=== PATIENT | female | born 1955 | race Hispanic/Latino ===

== ENCOUNTER 2017-08-31 13:00 | Emergency (ER) | payer OTHER, SELFPAY ==
[2017-08-31 13:49] LABS: #Lymphocytes 1.2 thou/uL (1.20-3.40); #Neutrophils 10.2 thou/uL (1.40-6.50); %Basophils 0.1 % (0.0-1.0); %Eosinophils 0.1 % (0.0-10.0); %Lymphocytes 9.9 % (21.0-51.0); %Monocytes 8.1 % (0.0-10.0); Hematocrit 33.1 % (36.0-47.0); Mean Platelet Volume 6.6 fL (7.4-10.4); White Blood Cell (WBC) Count 12.4 thou/uL (4.8-10.8)
[2017-08-31 14:30] LABS: ALT (SGPT) 28 U/L (8-55); AST (SGOT) 38 U/L (5-34); Alkaline Phosphatase 158 U/L (40-150); Anion Gap 15 mmol/L (10-20); BUN (Urea Nitrogen) 12 mg/dL (9.8-20.1); Calc. Creatinine Clearance 0 mL/min (70-130); Calcium 9.2 mg/dL (7.8-10.44); Carbon Dioxide 24 mmol/L (23-31); Chloride 99 mmol/L (98-107); Estimated GFR-MDRD 50; Globulin 3.7 g/dL (2.4-3.5); Protein, Total 7.2 g/dL (6.0-8.3)
[2017-08-31 16:10] LABS: Bilirubin Small (Negative); Blood, Urine Negative (Negative); Glucose, Urine (Dipstick) Negative (Negative); Ketone, Urine Trace mg/dL (Negative); Nitrite Negative (Negative); Protein, Urine (Dipstick) 30 mg/dL (Neg-Trace)
[2017-08-31 16:11] LABS: Hyaline Casts/LPF 4-6 HYALINE CAST LPF (0-3 Hyaline); Squamous Epithelial 0-3 HPF (0-3)
[2017-08-31] MEDS ORDERED: Ondansetron HCl/PF 4 MG/2 ML Vial ONE (16:23)
[2017-08-31 16:26] LABS: Bacteria/HPF Rare-Few HPF (None Seen); RBC/HPF 0-3 HPF (0-3)
[2017-08-31] MEDS ORDERED: Albuterol Sulfate 2.5 mg/3 ml Neb ONE (16:38)
== END 2017-08-31 17:32 | disposition home or self-care (01) ==
LOC: ERS 13:00
DX: R19.7 Diarrhea, unspecified (principal); I10 Essential (primary) hypertension; Z79.899 Other long term (current) drug therapy
CPT/HCPCS: 36415; 80053; 81003; 81015; 85025; 94640; 96361; 96374; J2405; J7611

== ENCOUNTER 2017-09-07 14:28 | Inpatient (IN) | payer SELFPAY ==
[2017-09-07] MEDS ORDERED: methylPREDNISolone Sod Succ/PF 125 MG/2 ML VIAL ONE (14:53)
[2017-09-07] MEDS ORDERED: Acetaminophen 500 MG TAB ONE (14:53)
[2017-09-07 14:54] LABS: #Basophils 0.1 thou/uL (0.0-0.2); #Lymphocytes 0.4 thou/uL (1.20-3.40); #Monocytes 0.8 thou/uL (0.11-0.59); %Basophils 0.6 % (0.0-1.0); %Eosinophils 0.5 % (0.0-10.0); %Lymphocytes 4.5 % (21.0-51.0); %Monocytes 8.4 % (0.0-10.0); Mean Platelet Volume 6.9 fL (7.4-10.4); Red Blood Cell (RBC) Count 3.72 mill/uL (4.20-5.40); White Blood Cell (WBC) Count 9.3 thou/uL (4.8-10.8)
[2017-09-07] MEDS ORDERED: Water For Inject, Bacteriostat 30 ML ONE (14:54)
[2017-09-07] MEDS ORDERED: Azithromycin 500 MG VIAL ONE (14:56)
--- NOTE | 2017-09-07 15:11 | RAD ---
PORTABLE CHEST 1 VIEW: Date: 09/07/17 Time: 1438 hours HISTORY: Dyspnea. Cough. FINDINGS/IMPRESSION: Comparison made with exam dated 03/18/15. The heart size is normal. The previously seen left Port-A-Cath is no longer identified. Evidence of old granulomatous disease in the left lung is again seen. The pleural and parenchymal changes in the right lower hemithorax have worsened in the interim. A new right-sided pleural effusion may have de veloped in the interim. POS: OFF
[2017-09-07 15:16] LABS: ALT (SGPT) 55 U/L (8-55); AST (SGOT) 72 U/L (5-34); Alkaline Phosphatase 286 U/L (40-150); Anion Gap 18 mmol/L (10-20); BUN (Urea Nitrogen) 13 mg/dL (9.8-20.1); Bilirubin, Total 0.9 mg/dL (0.2-1.2); Calc. Creatinine Clearance 0 mL/min (70-130); Calcium 9.5 mg/dL (7.8-10.44); Carbon Dioxide 25 mmol/L (23-31); Chloride 95 mmol/L (98-107); Estimated GFR-MDRD 60; Globulin 4.2 g/dL (2.4-3.5); Protein, Total 7.6 g/dL (6.0-8.3)
[2017-09-07] MEDS ORDERED: Ondansetron HCl/PF 4 MG/2 ML Vial IVP PRN ×2 (16:49→19:05)
[2017-09-07] MEDS ORDERED: Sodium Chloride 0.9% 1,000 ML IV SCH ×2 (16:49→19:15)
[2017-09-07] MEDS ORDERED: Ondansetron ODT 4 MG TAB SL PRN (16:49)
[2017-09-07] MEDS ORDERED: cefTRIAXone\\ROCEPHIN 1 GM, Syringe 0.4 ML in Sterile Water 9.6 ML SLOW IVP SCH (18:00)
[2017-09-07] MEDS: Digoxin 0.5 MG/2 ML AMP SLOW IVP SCH ×2 (18:45→19:14)
[2017-09-07] MEDS ORDERED: Ondansetron ODT 4 MG TAB PO PRN (19:05)
[2017-09-07] MEDS ORDERED: Benzonatate 100 MG CAP PO PRN (19:05)
[2017-09-07] MEDS ORDERED: hydrALAZINE 20 MG/ML VIAL SLOW IVP PRN (19:05)
[2017-09-07] MEDS ORDERED: cloNIDine 0.1 MG TAB PO PRN (19:05)
[2017-09-07] MEDS ORDERED: Acetaminophen 500 MG TAB PO PRN (19:05)
[2017-09-07] MEDS: Diltiazem HCl 125 MG, Admixture Fee 1 EACH in Sodium Chloride 0.9% 100 ML SLOW IVP SCH (19:14)
[2017-09-07] MEDS ORDERED: Digoxin 0.5 MG/2 ML AMP SLOW IVP SCH (19:15)
[2017-09-07] MEDS: Sodium Chloride 0.9% 1,000 ML IV SCH ×2 (19:26→19:56)
[2017-09-07] MEDS: Famotidine 20 MG TAB PO SCH (20:27)
--- NOTE | 2017-09-08 00:32 | HP ---
DATE OF ADMISSION: 09/07/2017 PRIMARY CARE PROVIDER: Cami Srinivasan NP CHIEF COMPLAINT: Cough, congestion, and chills. HISTORY OF PRESENT ILLNESS: This is a 61-year-old, female, who presents to [facility] complaining of 1-2 day history of chills, fever, cough, congestion, and general malaise. The patient admits to recent exposure to suspected virus causing abdominal pain, nausea, v omiting, and diarrhea within the last several days. The patient admits to increasing shortness of b reath and some cough that has been nonproductive over the last 48 hours. The patient also admits to some sensation of chills without documented fever. Patient denied taking any specific new medicati ons or home remedies. Patient denies any strong history of pneumonia, but does state she had lung c ancer treated in the past with her last chemotherapy and treatment approximately 1-1/2 years prior t o this evaluation. Patient states she occasionally uses metered-dose inhaler for asthma, which she denies increased use of over the last week. Patient states her influenza vaccine is current; bernadette frazier, she has never had a pneumonia vaccination. In the emergency room, the patient underwent general evaluation including chest imaging showing parenchymal and pleural changes in the right lower hemith orax with questionable new right-sided pleural effusion. Patient was noted with mild hypoxemia, audra guru on oxygen supplementation as well as acetaminophen, Zithromax, Rocephin, IV Solu-Medrol, DuoNebs , and intravenous normal saline x1 liter. The patient was transferred to the Intermediate Care Unit after concern for a right lower lobe infiltrate and pneumonia. PAST MEDICAL HISTORY: 1. History of lung cancer, status post chemotherapy in 2014. 2. Hypertension. 3. History of dysphagia. 4. History of empyema of the right lower lung. 5. Chronic kidney disease, stage 2. PAST SURGICAL HISTORY: 1. Status post hysterectomy. 2. Status post Mediport placement with subsequent removal. CURRENT MEDICATIONS: 1. Ventolin nebulized solution 3 mL nebulized q.4 hours p.r.n. 2. Lisinopril 10 mg p.o. daily. ALLERGIES: To BACTRIM. FAMILY HISTORY: Mother of complications of coronary artery disease at age 42. No extended fam trung members with history of lung cancer. SOCIAL HISTORY: Patient is . Remote tobacco use, quitting in 2015. No current alcohol or illicit drug use. 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 REVIEW OF SYSTEMS: The following complete review of systems was negative, otherwise negative except as stated per HPI: Constitutional: Weight loss or gain, ability to conduct usual activities. Skin: Rash, itching. Eyes: Double vision, pain. ENT/Mouth: Nose bleeding, neck stiffness, pain, tenderness. Cardiovascular: Palpitations, dyspnea on exertion, orthopnea. Respiratory: Shortness of breath, wheezing, cough, hemoptysis, fever or night sweats. Gastrointestinal: Poor appetite, abdominal pain, heartburn, nausea, vomiting, constipation, or diar benjamin. Genitourinary: Urgency, frequency, dysuria, nocturia. Musculoskeletal: Pain, swelling. Neurologic/Psychiatric: Anxiety, depression. Allergy/Immunologic: Skin rash, bleeding tendency. PHYSICAL EXAMINATION: VITAL SIGNS: Currently, blood pressure 133/60, pulse ranging between 115-165, irregular, respirator y rate 20, temperature 98.7 degrees Fahrenheit, O2 saturation 99% on 2 liters per minute by nasal ca nnula. GENERAL APPEARANCE: This is a 61-year-old, female, alert and oriented x3, pleasant, in mi ld distress. HEENT: Pupils are equal, round, and reactive to light and accommodation. Extraocular muscles are i ntact. No scleral icterus, no conjunctival injection. Nares patent. OP is clear. Teeth in good r epair. NECK: Supple, no cervical adenopathy, no thyromegaly, no carotid bruits, no JVD appreciated. Cervi adams spine with full active and passive range of motion. CHEST: Diminished breath sounds in the right lung base with occasional coarse sounds. CARDIOVASCULAR: S1, S2 with tachycardia and irregular rate and rhythm. ABDOMEN: Rounded, soft, nontender, nondistended. Bowel sounds are positive in all four quadrants. There is no hepatosplenomegaly, no abdominal bruits, no rebound or guarding appreciated. EXTREMITIES: Warm and dry with good turgor. No clubbing, cyanosis or asymmetric edema appreciated. Pulses are palpable distally at the dorsalis pedis, posterior tibial, and popliteal arteries bilat erally. Capillary refill is less than 2 seconds. NEUROLOGIC: Cranial nerves II-XII are grossly intact. No focal or lateralizing signs appreciated. PERTINENT LABORATORY AND X-RAY FINDINGS: Sodium 134, potassium 3.7, chloride 95, CO2 of 25, BUN 13, creatinine 0.94, glucose 106, lactic acid level 1.0, calcium 9.5. AST 72, ALT of 55, alkaline phos phatase 286. Albumin 3.4. CBC showed a white blood cell count of 9.3, hemoglobin 10.5, hematocrit 33, and platelet count 398 with 86% neutrophilia. Portable chest x-ray dated 09/07/2017 showed prema valencia of left-sided Port-A-Cath. Old granulomatous changes in the left lung. Pleural and parenchymal changes in the right lower hemithorax worsening since previous exam. New right-sided pleural effus ion. EKG dated 09/07/2017 by my interpretation shows atrial fibrillation with rapid ventricular res ponse, heart rates in the 200s. Normal R-wave progression noted in the precordial leads. Normal ax is. ST-T wave changes from V3-V6 and inferior leads. ASSESSMENT AND PLAN: 1. Community-acquired right lower lobe pneumonia. The patient will be admitted to the intermediate care unit. Suspected gram positive cocci etiology. Continue Levaquin 750 mg IV q.24 hours. Blood cultures x2 pending. Continue bronchodilator therapy. 2. Question of new onset atrial fibrillation with rapid ventricular response. Cardizem 10 mg IV pu sh x1 dose followed by 5 mg per hour. Digoxin 0.5 mg IV push followed by 0.25 mg IV push. We will continue rate control measures. Consult Cardiology service in the a.m. Check TSH and magnesium lev els. Check 2D transthoracic echocardiogram in the a.m. 3. Hypertension. Resume home antihypertensive regimen with lisinopril 10 mg p.o. daily. Continue serial monitoring. 4. History of squamous cell carcinoma of the lung, status post chemotherapy. Stable currently. We will consider Medical Oncology evaluation. History of prior chemotherapy management. 5. Chronic normocytic anemia. No current evidence to suggest acute blood loss. Repeat CBC and mon itor hemoglobin trend. 6. Prophylaxis. Sequential compression devices while in bed. 7. Pepcid 20 mg p.o. b.i.d. 8. Code status is FULL. Surrogate medical decision maker is the patient's daughter.
[2017-09-08] MEDS: Sodium Chloride 0.9% 1,000 ML IV SCH ×3 (04:28→18:31)
[2017-09-08 05:02] LABS: ALT (SGPT) 41 U/L (8-55); AST (SGOT) 43 U/L (5-34); Alkaline Phosphatase 210 U/L (40-150); Anion Gap 13 mmol/L (10-20); BUN (Urea Nitrogen) 14 mg/dL (9.8-20.1); Bilirubin, Total 0.4 mg/dL (0.2-1.2); Calc. Creatinine Clearance 86 mL/min (70-130); Calcium 8.4 mg/dL (7.8-10.44); Carbon Dioxide 23 mmol/L (23-31); Chloride 107 mmol/L (98-107); Estimated GFR-MDRD 78; Globulin 3.3 g/dL (2.4-3.5)
[2017-09-08 05:10] LABS: Hematocrit 28.4 % (36.0-47.0); Mean Platelet Volume 6.6 fL (7.4-10.4); Neutrophil 93 % (42-75); Red Blood Cell (RBC) Count 3.22 mill/uL (4.20-5.40); White Blood Cell (WBC) Count 8.2 thou/uL (4.8-10.8)
[2017-09-08] MEDS: Famotidine 20 MG TAB PO SCH ×2 (08:32→20:28)
[2017-09-08] MEDS: Lisinopril 10 MG TAB PO SCH (08:32)
[2017-09-08] MEDS ORDERED: Furosemide 20 MG/2 ML VIAL SLOW IVP SCH (12:15)
[2017-09-08 13:32] LABS: Troponin I 0.012 ng/mL (< 0.028)
--- NOTE | 2017-09-08 14:47 | CON ---
DATE OF SERVICE: 09/08/2017 SERVICE: Pulmonary Medicine. REASON FOR CONSULTATION: Pleural effusion. HISTORY OF PRESENT ILLNESS: The patient is a 61-year-old white female with past medical history significant for empyema on the right as well as lung cancer. She was in her usual state of health until roughly 3 weeks ago. She started having increasing dyspnea, particularly with exertion. She noted orthopnea and paroxysmal nocturnal dyspnea. The nebulized medications that she is on for COPD just simply were not working. She denies any current fever. She was having some chills with a little clamminess from time to time, particularly over the past 2-3 days. That being said, she is coughing up white phlegm with no color. Otherwise, she notes dysphasia which is new onset. She had a modified barium swallow a couple of days ago which demonstrated some penetration with thin liquids, but no overt aspiration. She got choked up on eating some roast beef for earlier. PAST MEDICAL HISTORY: 1. History of lung cancer, status post chemotherapy in 2014. 2. History of empyema on the right, status post decortication. 3. Hypertension. 4. Chronic kidney disease, stage 2. 5. Oropharyngeal dysphagia. PAST SURGICAL HISTORY: 1. Hysterectomy. 2. MediPort placement with subsequent removal. ALLERGIES: SULFAMETHOXAZOLE. MEDICATIONS: List of her inpatient medications was reviewed. Multiple updates were made. FAMILY HISTORY: Noncontributory. SOCIAL HISTORY: Negative for alcohol, tobacco or illicit drug use currently. She quit smoking in 2014 and had a 22-cvbi-dbrr prior to that. She formerly worked in the [employer]. She has no exposure to chemicals, dust, asbestosis or tuberculosis. REVIEW OF SYSTEMS: General, head, ears, eyes, nose, throat, cardiovascular, respiratory, GI, , musculoskeletal, neurologic and skin is negative except as mentioned in the HPI. PHYSICAL EXAMINATION: VITAL SIGNS: Afebrile, pulse 79, blood pressure 134/54, respirations 20, saturation 100% on 4 liters nasal cannula. GENERAL: The patient is awake and alert, in no apparent distress. LUNGS: Decent air entry on the left. Decreased air entry on the right. There is a slightly prolonged expiratory phase, but otherwise, no wheezing or rhonchi appreciated. HEART: Normal rate. Irregular. Last night, she did have a tachyarrhythmia up into the 180s. GI: Soft, nontender, nondistended, bowel sounds positive. MUSCULOSKELETAL: No cyanosis or clubbing. There is trace pitting in the bilateral lower extremities. NEUROLOGIC: Grossly nonfocal. LABORATORIES: WBC 8.2, hemoglobin 9.1, platelets 360,000. Neutrophil count is 93%. Basic metabolic profile, liver function studies are essentially unremarkable. TSH is slightly low, but the T4 falls within the normal limits. Blood cultures x2 are unremarkable. IMAGING: Chest x-ray demonstrates right-sided pleural effusion, which is slightly bigger compared to 1 year ago. The most dependent portion of the effusion looks roughly stable. It is now tracking along the side wall. There is also fluid in the fissure and pulmonary vascular congestion. The carinal angle is fairly narrow. There is possible mid lung zone nodule present which could just represent fluid in the fissure as well. The left lung looks good. ASSESSMENT: 1. Acute hypoxic respiratory failure. 2. Atrial fibrillation with rapid ventricular response. 3. History of empyema on the right with chronic pleural disease over there. 4. Pleural effusion, slightly worse compared to her chronic stable effusion. 5. History of lung cancer. 6. Oropharyngeal dysphagia. PLAN: Place GI consultation for her oropharyngeal dysphagia which apparently is being worked up in the outpatient setting. In the meantime, we will give her a dose of Lasix. Thoracentesis will be performed so that we can identify characteristics of the fluid. I agree with the empiric antibiotics for the time being, but I am doubtful that a true infection is driving this admission. My suspicion is that the patient has chronic lung changes on that side which has worsened by recent paroxysmal atrial fibrillation. Cardiology consultation will be placed for her new onset atrial fibrillation. Lastly, magnesium and phosphorus will be checked a well as a troponin and BNP. MTDD
[2017-09-08 15:29] LABS: BF Reference Range Comment Note:
[2017-09-08 16:32] LABS: BF Color Yellow
[2017-09-08] MEDS: Diltiazem HCl 125 MG, Admixture Fee 1 EACH in Sodium Chloride 0.9% 100 ML SLOW IVP SCH (16:42)
[2017-09-08 16:55] LABS: Number Cells Counted-Fluids 100
--- NOTE | 2017-09-08 18:19 | PDOC.PN ---
- Subjective Encounter Start Date: 09/08/17 Encounter Start Time: 18:10 Subjective: f/u for A-fib RVR, PNA and hypoxemia. States feeling better after A- fib -: converted to SR. Remains on Cardizem gtt. S/P thoracentesis for R pleural -: effusion. No fever or chills. - Objective Resuscitation Status: Resuscitation Status FULL:Full Resuscitation MAR Reviewed: Yes Vital Signs & Weight: Vital Signs (12 hours) Temp Pulse Resp BP BP Pulse Ox 09/08/17 15:07 97.8 F 80 20 139/59 L 100 09/08/17 11:13 97.7 F 79 20 134/54 L 100 09/08/17 07:57 97.5 F L 77 20 99 09/08/17 07:05 97.5 F L 77 20 131/67 100 Weight Admit Weight 156 lb 4.8 oz Weight 158 lb 12.8 oz I&O: 09/07/17 09/08/17 09/09/17 06:59 06:59 06:59 Intake Total 2065 Output Total 1200 300 Balance 865 -300 Result Diagrams: 09/08/17 04:09 09/08/17 04:09 Additional Labs: Microbiology 09/08/17 14:30 Pleural fluid Body Fluid Culture - Preliminary 09/07/17 14:54 Venous blood - Left Hand Blood Culture - Preliminary Specimen has been received and culture in progress. No Growth to date. 09/07/17 14:36 Venous blood - Left Arm Blood Culture - Preliminary Specimen has been received and culture in progress. No Growth to date. Laboratory Tests 09/07/17 09/07/17 09/08/17 14:36 14:36 04:09 Hgb 10.5 L Neutrophils % 86.0 H Neutrophils % (Manual) AST 72 H 43 H ALT 55 41 Alkaline Phosphatase 286 H 210 H B-Natriuretic Peptide Free T4 TSH 3rd Generation 09/08/17 09/08/17 09/08/17 04:09 04:09 13:02 Hgb Neutrophils % Neutrophils % (Manual) 93 H AST ALT Alkaline Phosphatase B-Natriuretic Peptide 614.2 H Free T4 1.24 TSH 3rd Generation 0.1029 L Radiology Reviewed by me: Yes (2D Echo - EF 55-60%) EKG Reviewed by me: Yes (Tele - SR in 80's, frequent PVC's) Phys Exam - Physical Examination Constitutional: NAD HEENT: PERRLA, oral pharynx no lesions Neck: no JVD, supple diminished in bases R>L Cardiovascular: RRR Gastrointestinal: soft, non-tender, no distention, positive bowel sounds Musculoskeletal: no edema, pulses present Neurological: normal sensation, moves all 4 limbs Psychiatric: A&O x 3 Skin: normal turgor, cap refill <2 seconds Dx/Plan (1) Acute respiratory failure with hypoxia Code(s): J96.01 - ACUTE RESPIRATORY FAILURE WITH HYPOXIA Status: Acute Comment: Multifactorial given A-fib RVR, suspected pneumonia and effusion, continue O2 supplementation and provide supportive care (2) Pneumonia Code(s): J18.9 - PNEUMONIA, UNSPECIFIED ORGANISM Status: Acute Qualifiers: Laterality: right Lung location: lower lobe of lung Comment: Suspected with gm + cocci and associated effusion, Continue Levaquin 750mg IV daily (3) Parapneumonic effusion Code(s): J18.9 - PNEUMONIA, UNSPECIFIED ORGANISM; J91.8 - PLEURAL EFFUSION IN OTHER CONDITIONS CLASSIFIED ELSEWHERE Status: Acute Comment: s/p thoracentesis, await final cx results, appreciate Pulmonology assistance (4) Atrial fibrillation with RVR Code(s): I48.91 - UNSPECIFIED ATRIAL FIBRILLATION Status: Acute Comment: New -onset A-fib RVR now SR, continue Cardizem gtt, rate control measures, appreciate Cardiology assistance (5) HTN (hypertension) Code(s): I10 - ESSENTIAL (PRIMARY) HYPERTENSION Status: Chronic Qualifiers: Hypertension type: essential hypertension Qualified Code(s): I10 - Essential (primary) hypertension Comment: Resume home BP regimen and monitor clinically (6) Carcinoma of lung Code(s): C34.90 - MALIGNANT NEOPLASM OF UNSP PART OF UNSP BRONCHUS OR LUNG Status: Acute Qualifiers: Laterality: right Qualified Code(s): C34.91 - Malignant neoplasm of unspecified part of right bronchus or lung Comment: s/p chemothx, await thoracentesis fluid assessment - Plan continue antibiotics, PT/OT, child welfare social worker, respiratory therapy, out of bed/ ambulate, DVT proph w/SCDs Stable overall -: Decrease IVF 75ml/h -: Continue Levaquin 750mg IV daily -: Continue Cardizem gtt -: AM lab: CMP, CBC * .
--- NOTE | 2017-09-08 18:49 | CON ---
DATE OF ADMISSION: 09/07/2017 DATE OF CONSULTATION: 09/08/2017 INDICATION FOR CONSULTATION: A 61-year-old female with new onset atrial fibrillation. HISTORY OF PRESENT ILLNESS: This is a very unfortunate 61-year-old female who was diagnosed with laureano ng cancer in 2014. She underwent chemo and radiation therapy. She has not had surgical resection o f the cancer. She has smoked in the past, but stopped at the time of her lung cancer, otherwise she smoked for about 40 years up to a pack a day. She has had no previous cardiac history that we are aware of. She does have a history of hypertension. She presented to the emergency room after she h ad increasing shortness of breath and noticed her with a rapid heart rate. She was seen in the [facility] physician's office and then was found to have low O2 oxygen saturation and was sent to the emergency room. Since being in the emergency room, she has been oxygen, her O2 saturations have imp roved. She has O2 saturation of 100% on 2 liters of oxygen. She has been noticing recently when e sleeps at night that she may have a rapid heart rate. She wakes up, she is short of breath. She has had a couple episodes of chest pressure associated with a rapid heart rate. She has had no othe r associated symptoms and associated with this except for the shortness of breath. She has had no p revious cardiac history that we are aware of. She has had no previous stress test also that I can d etermine. Her EKG did show a sinus rhythm when she presented to the emergency room, but later where she was noted to be in atrial fibrillation with rapid ventricular response, heart rate of almost 20 0 beats a minute. There are also EKG changes compatible with anterior lateral ischemic changes whic h may be due to demand ischemia. She subsequently was started on digoxin and diltiazem as then conv erted back to a normal sinus rhythm. She denied any previous history of coronary artery disease mary t she is aware of, but does have obvious risk factors. At this time, she remains relatively comfort able. She did have a right pleural effusion, which underwent thoracentesis this a.m. by the pulmono logist and this is still pending the results. She also had an echocardiogram, which showed a normal left ventricular systolic function, ejection fraction of 55% to 60% with mild pulmonary, tricuspid and mitral valve regurgitation, mild aortic valve sclerosis was noted. There was trace aortic valve regurgitation as well as a right pleural effusion. PAST MEDICAL HISTORY: Significant for the lung cancer and history of hypertension as well as some h istory of asthma in the past. ALLERGIES: SULFAMETHOXAZOLE and TRIMETHOPRIM. MEDICATIONS: Prior to admission included lisinopril 10 mg a day and Ventolin nebulizer treatments. Since being in the hospital, she has been switched over or she has been started on other medication s which include the Ventolin inhaler. She is on Tylenol. She is on p.r.n. medications also she was given IV diltiazem and remains on a drip as well as digoxin. She is on Pepcid, furosemide was give n. She has also been placed on heparin, I think this is a heparin flush, this has been discontinued . She has been placed on Levaquin, lisinopril 10 mg a day. REVIEW OF SYSTEMS: Mainly she complained of the rapid heart rate and her shortness of breath. Othe rwise, she has no significant complaints on review of systems except for some recent diarrhea. This also noted last couple weeks with some nausea and vomiting as well as the diarrhea and also was com plaining of some reflux. Otherwise, 12-point review of systems was relatively unremarkable. She de nies any swelling or any other symptoms. PHYSICAL EXAMINATION: GENERAL: Reveals a well-developed, well-nourished female. At this time, she is very comfortable. VITAL SIGNS: Blood pressure 134/54, heart rate is approximately 80 and regular, respiratory rate is 20. She is afebrile. HEENT: Shows head to be normocephalic and atraumatic. Carotid pulses are present without any bruit s. No obvious JVD; however, the patient was sitting upright and then she was feeling well and comfo rtable. CHEST: Has decreased breath sounds on the right side in the bases and also changes as well as a sma ll bandage has been placed over the previous or earlier thoracentesis on the right lower chest area. There were no wheezes noted. CARDIOVASCULAR: At this time reveals a regular rate and rhythm with normal S1, S2. I cannot hear a n S3 nor an S4. There were no significant murmurs, heaves, thrills, bruits or rubs. ABDOMEN: Soft and nontender with positive bowel sounds. EXTREMITIES: Showed no clubbing, cyanosis or edema. Pedal pulses are present. NEUROLOGIC: The patient appears to be fully intact. SKIN: Warm and dry. EKG as noted above, has now returned to a sinus rhythm but did have EKG changes when she had rapid v entricular response associated with atrial fibrillation with what appeared to be anterolateral ische jeyson changes ST segment depression. Her chest x-ray shows a right pleural effusion with possible und erlying nodule or mass. This will be dealt with by the electric organ assembler and checker. I did not see anything on th e left side. LABORATORY DATA: Shows no evidence of elevation of troponin I that would indicate myocardial infarc tion. She does have evidence of anemia with a hemoglobin of 9.1. WBC was 8.2. Her renal function is normal with a creatinine of 0.75, BUN was 14, potassium was 3.9, did notice that she does have el evation in AST and the alkaline phosphatase, AST was 42, alkaline phosphatase is 210. She also has slight elevation of BNP 614, which may be associated with her rapid ventricular heart rate with the atrial fibrillation and pulmonary component also. She has a TSH level of 0.1029 compatible with hyp othyroidism. IMPRESSION: 1. New onset atrial fibrillation and rapid ventricular response. This may be ongoing for the last months or so or 6 weeks. She has noticed an irregular fast heart rates at night, this may be due to her underlying pulmonary problems with hypoxemia, may also be due to the or hypothyroidism. She al so may be due to coronary artery disease. She certainly did have some EKG changes, I would not expe ct this to be the case at rest and most likely associated with hypoxemia and at some point time, she will need to undergo stress test rule out evidence for underlying coronary artery disease. This pa tient with her history of tobacco abuse, which puts her at high risk for underlying coronary artery disease. As far as her atrial fibrillation is concerned, will need to continue the diltiazem and di goxin at this time. She may stabilize these medications and may not recur as long as she does not b ecome hypoxic and it would be interesting to watch her here in the hospital and see whether or not s he does develop atrial fibrillation without any hypoxemia. 2. Hypothyroidism, this will also need to be addressed since this is one of the issues of her could be a possible issue with her atrial fibrillation. This will be dealt with also by the primary care service for treatment of her hypothyroidism. 3. History of underlying chronic obstructive pulmonary disease or asthma and is somewhat difficult to get this patient on beta-blockers to control with heart rate and I would agree with the calcium b lockers and digoxin at this time. 4. History of anemia, uncertain if this is due to also her chronic illness associated with her lung cancer, whether she has other issues, which may indicate the bleeding. We will need to undergo adam luation in the stools as the patient eventually may need to undergo oral anticoagulation. We will n eed to determine if she is actually having any other GI blood loss as the cause of her anemia. We w ill be more than happy to continue to follow the patient with you. At this time, she is stable. Sh marleny is in sinus rhythm. I would continue the diltiazem can switch her from IV to p.o. medications and see how she does.
[2017-09-08] MEDS: Albuterol Sulfate 2.5 mg/3 ml Neb NEB PRN (20:37)
--- NOTE | 2017-09-09 | OP ---
DATE OF SERVICE: 09/08/2017 SERVICE: Pulmonary Medicine. PROCEDURE: Right-sided pleural drainage with catheter insertion under ultrasound guidance. CONSENT: The risks and benefits of this procedure were explained to the patient. All questions wer e answered and alternative options explained. STAFF PHYSICIAN: John Lange M.D. MEDICATIONS: Lidocaine 1% without epinephrine, total quantity 8 mL. PREOPERATIVE DIAGNOSES: 1. Pleural effusion. 2. History of lung cancer POSTPROCEDURE DIAGNOSES: 1. Pleural effusion. 2. History of lung cancer. DESCRIPTION OF PROCEDURE: A timeout was performed by the procedure team and the patient. The patie nt was positively identified using name and date of . The procedure site was marked. Vital si gns monitoring was accomplished by noninvasive hemodynamic monitoring, pulse oximetry, and telemetry . In the seated position, the right posterior hemithorax was examined using ultrasound probe. The diaphragm and pleural fluid was easily identified. The skin was prepped and draped in sterile fashi on and anesthetized with 1% lidocaine without epinephrine. A finder needle was inserted into the pl eural space with return of minimally opaque yellow fluid. A pleural drainage catheter was inserted in the same location. A total quantity of 800 mL of pleural fluid was withdrawn by syringe pump robert [employer]. A sample was sent for analysis. Evacuation was terminated because the fluid stopped coming . At the end of the procedure, estimated pleural pressure, measured by manometry, was -14 cm of ple ural fluid. The entire catheter was withdrawn on exhalation and a sterile dressing was applied. Th e patient had stable vital signs throughout the entire procedure. ESTIMATED BLOOD LOSS: Two mL COMPLICATIONS: None.
[2017-09-09] MEDS: Albuterol Sulfate 2.5 mg/3 ml Neb NEB PRN ×3 (01:16→19:11)
[2017-09-09 05:16] LABS: Band 3 % (5-11); Hematocrit 28.2 % (36.0-47.0); Mean Platelet Volume 6.7 fL (7.4-10.4); Neutrophil 92 % (42-75); Red Blood Cell (RBC) Count 3.11 mill/uL (4.20-5.40); White Blood Cell (WBC) Count 16.7 thou/uL (4.8-10.8)
[2017-09-09 05:17] LABS: ALT (SGPT) 63 U/L (8-55); AST (SGOT) 68 U/L (5-34); Alkaline Phosphatase 162 U/L (40-150); Anion Gap 12 mmol/L (10-20); BUN (Urea Nitrogen) 20 mg/dL (9.8-20.1); Bilirubin, Total 0.2 mg/dL (0.2-1.2); Calc. Creatinine Clearance 94 mL/min (70-130); Calcium 8.4 mg/dL (7.8-10.44); Carbon Dioxide 23 mmol/L (23-31); Chloride 108 mmol/L (98-107); Estimated GFR-MDRD 85; Globulin 2.9 g/dL (2.4-3.5); Protein, Total 5.5 g/dL (6.0-8.3)
[2017-09-09] MEDS: Lisinopril 10 MG TAB PO SCH (08:19)
[2017-09-09] MEDS: Famotidine 20 MG TAB PO SCH (08:20)
[2017-09-09] MEDS: Furosemide 20 MG/2 ML VIAL SLOW IVP SCH (08:20)
[2017-09-09] MEDS: Sodium Chloride 0.9% 1,000 ML IV SCH (08:24)
[2017-09-09 09:42] LABS: Iron 53 ug/dL (50-170)
--- NOTE | 2017-09-09 09:58 | PDOC.PN ---
- Subjective Encounter Start Date: 09/09/17 Encounter Start Time: 10:00 Subjective: Patient feels much better since thoracentesis, and got some sleep last -: night. No complaints this AM. - Objective Resuscitation Status: Resuscitation Status FULL:Full Resuscitation MAR Reviewed: Yes Vital Signs & Weight: Vital Signs (12 hours) Temp Pulse Resp BP BP Pulse Ox 09/09/17 07:00 97.9 F 73 18 124/57 L 100 09/09/17 04:00 97.7 F 77 20 126/60 100 09/09/17 01:16 99 09/08/17 23:50 97.8 F 80 20 125/56 L 100 Weight Admit Weight 156 lb 4.8 oz Weight 158 lb 8 oz I&O: 09/08/17 09/09/17 09/10/17 06:59 06:59 06:59 Intake Total 2065 3740 Output Total 1200 2225 Balance 865 1515 Result Diagrams: 09/09/17 04:11 09/09/17 04:11 Phys Exam - Physical Examination Constitutional: NAD HEENT: moist MMs Respiratory: no wheezing, no rales, no rhonchi, clear to auscultation bilateral Cardiovascular: RRR, no significant murmur Gastrointestinal: soft, positive bowel sounds Neurological: non-focal, moves all 4 limbs Psychiatric: normal affect, A&O x 3 Dx/Plan (1) Acute respiratory failure with hypoxia Code(s): J96.01 - ACUTE RESPIRATORY FAILURE WITH HYPOXIA Status: Acute Comment: Multifactorial given A-fib RVR, suspected pneumonia and effusion, continue O2 supplementation and provide supportive care (2) Parapneumonic effusion Code(s): J18.9 - PNEUMONIA, UNSPECIFIED ORGANISM; J91.8 - PLEURAL EFFUSION IN OTHER CONDITIONS CLASSIFIED ELSEWHERE Status: Acute Comment: s/p thoracentesis, await final cx results, appreciate Pulmonology assistance (3) Pneumonia Code(s): J18.9 - PNEUMONIA, UNSPECIFIED ORGANISM Status: Acute Qualifiers: Laterality: right Lung location: lower lobe of lung Comment: Suspected with gm + cocci and associated effusion, Continue Levaquin 750mg IV daily (4) Atrial fibrillation with RVR Code(s): I48.91 - UNSPECIFIED ATRIAL FIBRILLATION Status: Acute Comment: New -onset A-fib RVR now SR, continue Cardizem gtt, rate control measures, appreciate Cardiology assistance (5) HTN (hypertension) Code(s): I10 - ESSENTIAL (PRIMARY) HYPERTENSION Status: Chronic Qualifiers: Hypertension type: essential hypertension Qualified Code(s): I10 - Essential (primary) hypertension Comment: Resume home BP regimen and monitor clinically (6) Lung cancer Code(s): C34.90 - MALIGNANT NEOPLASM OF UNSP PART OF UNSP BRONCHUS OR LUNG Status: Chronic Qualifiers: Laterality: right Lung location: lower lobe of lung Qualified Code(s): C34.31 - Malignant neoplasm of lower lobe, right bronchus or lung Comment: s/p chemotherapy - Plan cont current plan of care, continue antibiotics WBC jumped arguing for possibility of infectious eitiology of effusion. -: Awaiting fluid analysis and culture. * . - Discharge Day Encounter end time: 10:30
--- NOTE | 2017-09-09 10:42 | PDOC.CTH ---
<Katherine Hong - Last Filed: 09/09/17 10:40> Cardiology Progress Note - Subjective The pt was seen and examined. No overnight events. No cardiac complaints. She is breathing well with RA - Objective Vital Signs Temp Pulse Resp BP BP Pulse Ox 09/09/17 07:00 97.9 F 73 18 124/57 L 100 09/09/17 04:00 97.7 F 77 20 126/60 100 09/09/17 01:16 99 09/08/17 23:50 97.8 F 80 20 125/56 L 100 Admit Weight 156 lb 4.8 oz Weight 158 lb 8 oz 09/08/17 09/09/17 09/10/17 06:59 06:59 06:59 Intake Total 2065 3740 Output Total 1200 2225 Balance 865 1515 - Physical Examination General/Neuro: alert & oriented x3 Neck: no JVD present Lungs: other: (diminished at bases) Heart: RRR Abdomen: soft Extremities: other: (No edema) - Telemetry Telemetry Rhythm: SR 80 - Labs Result Diagrams: 09/09/17 04:11 09/09/17 04:11 Troponin/CKMB Troponin I 0.012 ng/mL (< 0.028) 09/08/17 13:02 - Assessment/Plan 1. Afib with RVR - remain SR with Diltiazem 5mg/h; will change to 120mg daily; cont. monitor on tele; Hyperthyroidism may cause Afib; 2. Acute respiratory failure - possible 2ndary to Plural effusion; her resp is improved; no distress with RA; managed by data integration analyst 3. Plural Effusion - the pt's condition is stable after Rt Plural effusion evacuation on 09/08/17 3. HTN - stable with current medication 4. Hyperthyroidism - TSH 0.1029 and Free T4 1.24; managed by PCP 5. hx of smoking and Lung Ca in 2015 with Chemo and radiation MAR reviewed Review of Systems - Review of Systems Constitutional: reports: no symptoms reported EENTM: reports: no symptoms reported Respiratory: reports: no symptoms reported Cardiac (ROS): reports: no symptoms reported ABD/GI: reports: no symptoms reported : reports: no symptoms reported Musculoskeletal: reports: no symptoms reported Skin: reports: no symptoms reported <Janine Baker - Last Filed: 09/09/17 16:02> Cardiology Progress Note - Objective Vital Signs Temp Pulse Resp BP BP Pulse Ox 09/09/17 15:00 97.9 F 90 18 128/59 L 99 09/09/17 11:35 89 132/58 L 98 09/09/17 11:00 97.6 F 82 18 132/58 L 97 09/09/17 08:20 97.9 F 73 18 100 09/09/17 07:00 97.9 F 73 18 124/57 L 100 Admit Weight 156 lb 4.8 oz Weight 158 lb 8 oz 09/08/17 09/09/17 09/10/17 06:59 06:59 06:59 Intake Total 2065 3740 525 Output Total 1200 2225 900 Balance 865 1515 -375 - Labs Result Diagrams: 09/09/17 04:11 09/09/17 04:11 Troponin/CKMB Troponin I 0.012 ng/mL (< 0.028) 09/08/17 13:02 - Assessment/Plan Pt. seen and eval. by me. I agree with the A/P by the FILM TECHNICIAN. She is maintaining NSR on diltiazem.
[2017-09-09] MEDS ORDERED: Sodium Chloride 0.9% 1,000 ML IV SCH (13:47)
--- NOTE | 2017-09-09 14:03 | PRG ---
DATE OF SERVICE: 09/09/2017 SERVICE: Pulmonary Medicine. INTERVAL HISTORY: The patient is doing fantastic from her respiratory standpoint. She has been wea luis off of her oxygen altogether and she is maintaining her saturations. She feels fantastic after she got some Lasix. Otherwise, there has been no interval change to her condition. GI saw her and is planning on probably doing an EGD at some point during this hospital stay. She does have that pu lmonary nodule on a chest x-ray. I feel it represents fluid in the fissure and not a true pulmonary nodule. That being said, we will go ahead and set her up for a CT of the chest with contrast. No overnight events. PHYSICAL EXAMINATION: VITAL SIGNS: Afebrile, pulse 82, blood pressure 132/58, respirations 18, saturation 97% on room air . GENERAL: Patient is awake, alert, in no apparent distress. LUNGS: Decent air entry on the left. There is decreased air entry on the right. This is improved compared to yesterday. No prolonged expiratory phase or wheezing is appreciated. Dependent crackle s are still evident. HEART: Normal rate, regular. ABDOMEN: Soft, nontender, nondistended. Bowel sounds are positive. MUSCULOSKELETAL: No cyanosis or clubbing. There is no pitting in the bilateral lower extremities. The left upper extremity has pitting in it. GENITOURINARY: No [place]. NEUROLOGIC: Grossly nonfocal. LABORATORY DATA: WBC 16.7, hemoglobin 8.6, platelets 163,000. Basic metabolic profile is essential ly unremarkable. AST and ALT are up trending upward slowly. BNP was 614. Troponin was normal. Fo late is normal. Ferritin and iron levels are all unremarkable. The thoracentesis fluid is consiste nt with a transudate. Blood cultures x2 and body fluid cultures negative to date. ASSESSMENT: 1. Acute hypoxic respiratory failure. 2. Atrial fibrillation with rapid ventricular response, currently in normal sinus. 3. 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 4. Pleural effusion, transudate. 5. History of lung cancer, status post chemoradiation therapy. 6. Oropharyngeal dysphagia. PLAN: We will get an LDH to verify that she meets 0/3 Light's criteria. Acyclovir will be initiate d for the fever blister. I am going to interrupt her IV fluids as her presentation was for volume o verload. I am doubtful that she has a true community-acquired pneumonia. That being said, continui ng antibiotics for a total duration of 5 days is certainly reasonable.
[2017-09-09] MEDS: Acyclovir 400 mg Tablet PO SCH ×3 (15:51→23:41)
[2017-09-09] MEDS ORDERED: ISOVUE-370 76%-LOCM 1 ML ONE (16:19)
--- NOTE | 2017-09-09 18:48 | CT ---
CHEST CT WITH CONTRAST: Comparison: 07-03-16, 02-17-15 History: Lung cancer. Technique: Post contrast chest CT is performed in the axial plane. Reformatted images are submitted for interpretation. FINDINGS: There is abnormal hypoattenuation involving the subcarinal region which obliterates the right main s tem and right lower lobe airway. Heart size is within normal limits. No significant paracardial flui d. Upper abdominal aorta has an overall normal caliber. No periaortic fat stranding. Liver, spleen, pancreas and adrenal glands have appropriate enhancement. Visualized kidneys have appropriate enhancement. There is right renal atrophy. Visualized portal vei n is patent. There is a small right sided pleural effusion. There is necrosis and consolidation involving the rig ht lower lobe and part of the middle lobe. There is associated volume loss in the right hemithorax. There is an irregular marginated lesion in the superior aspect of the right lower lobe measuring 1.2 7 cm. The right upper lobe appears to be surgically resected. There is stable compensatory hyperinfl ation of the left lung. No suspicious masses or consolidation. No left sided pneumothorax or pleural effusions. IMPRESSION: 1. Worsening opacification of the right hemithorax when compared to the previous exam. There is also worsening soft tissue density in the right subcarinal region extending into the right infrahilar re gion. Progression of tumor is favored. Associated post obstructive atelectasis or pneumonia is also favored. 2. Small right sided pleural effusion. POS: [facility]
--- NOTE | 2017-09-09 22:14 | CON ---
DATE OF CONSULTATION: 09/09/2017 REASON FOR CONSULTATION: Dysphagia and 30-pound weight loss. HISTORY OF PRESENT ILLNESS: Ms. Kirkpatrick is a 61-year-old female who came to the hospital [facility] of congestion, fever, cough, and general malaise. She had been around with some individuals with some viral illnesses recently, had abdominal pain, nausea, vomiting, diarrhea for several days and then resolved. In the emergency room, she was found to have a right pleural effusion and atrial fib rillation with rapid ventricular response. Chest x-ray showed no overt infiltrates. She had a thor acentesis yesterday, which apparently showed this to be transudative and not exudative. She had bee n seen by Cardiology and her cardiac rate is now controlled. The patient has had a history of dysph agia, she states, for about 2-3 months now. She drinks liquids fine, but solids such as hamburgers, bread, and meat tend to hang up in the mid chest region and then she will have to regurgitate them. If she tries to force them down with water, she will throw all that back up. She had no hematemes is, melena, or hematochezia. Apparently, her primary physician sent her for a modified barium swall ow last week, which showed mild oropharyngeal dysphagia. This, however, does not evaluate the esoph roseanne and the speech pathologist noted that her report indicated that she was concerned there may be some esophageal dysphagia present. In any event, the patient is feeling better today. She has no f ever here. Her breathing feels better. PAST MEDICAL HISTORY: Lung cancer with radiation and chemotherapy in 2014. She states that the can cer was in the mid chest region. She was radiated from two aspects laterally trying to avoid any es ophageal damage. She denies any dysphagia back then, hypertension, history of empyema in the right lower lung in the past, chronic kidney disease stage 2, new onset atrial fibrillation. PAST SURGICAL HISTORY: Hysterectomy, MediPort placement and removal in the past. She denies any pr evious upper or lower endoscopies. MEDICATIONS: Presently include lisinopril and Ventolin. ALLERGIES: BACTRIM. FAMILY HISTORY: Coronary artery disease in mother at age 42. No family members with lung cancer. SOCIAL HISTORY: The patient is . Her daughter is here with her as her son and daughter are my patients in the office. REVIEW OF SYSTEMS: Negative for constipation or abdominal pain. Positive for the dysphagia as note d above; it has been progressive for 6-12 weeks now. PRESENT MEDICATIONS HERE IN THE HOSPITAL: Ventolin, Tessalon, Catapres, Cardizem, Lasix, Apresoline , levothyroxine, Zestril, Zofran, Protonix. PHYSICAL EXAMINATION: VITAL SIGNS: Pulse 89, O2 saturation 98%, blood pressure 133/58, she has been afebrile since admiss ion, temperature of 98. LUNGS: Clear with decreased breath sounds in the right base. HEART: Irregular rate and rhythm. ABDOMEN: Soft, nontender. NECK: Supple without any adenopathy. EXTREMITIES: Reveal no clubbing, cyanosis, or edema. LABORATORY STUDIES: Comp met profile is normal except for AST and ALT of 68 and 63 with alkaline ph osphatase of 162, alkaline phosphatase has came down from 282 when she was admitted, bilirubin 0.2. B12 was 441. Folate is 11. Iron is 53, TIBC is 175, ferritin is 558. Thoracentesis fluid hazy, w colten count 1950, white count 2450 and 54 segs. Pleural pH 7.5. LDH 105, glucose 135, protein 2.7. Chest x-ray reviewed, shows right pleural effusion. This was before her thoracentesis. Other Radi ology studies included a CAT scan of the chest 06/2016 shows right lower lobe opacification. ASSESSMENT: 1. Esophageal dysphagia for solids. This indicates likely stricture. One wonders this is related to her previous radiation treatment, possibility of a primary esophageal malignancy is considered as well as he is a previous smoker and had squamous cell cancer of the lung, squamous cell cancer of t he esophagus would be a concern as well. She has lost 30 pounds which is very concerning. Modified barium swallow did not really show an etiology to her dysphagia which is not surprising. 2. Admission with atrial fibrillation with rapid ventricular response, now rate controlled. 3. Pleural effusion on the right. Pulmonology thinks this was reactive and transudate related to h er atrial fibrillation and rapid ventricular response. He does not see any signs of pneumonia. 4. Anemia with hemoglobin of 8.6. Her white count was 12.1 on 06/2016. She has normocytic normoch romic indices. Hemoccults are pending. She has never had a colonoscopy, but she has significant up per GI symptoms. PLAN: 1. Start PPI. 2. Plan for EGD tomorrow if she does well with her breathing.
[2017-09-10 04:35] LABS: #Eosinphils 0.1 thou/uL (0.0-0.7); #Lymphocytes 0.7 thou/uL (1.20-3.40); #Monocytes 0.7 thou/uL (0.11-0.59); #Neutrophils 7.7 thou/uL (1.40-6.50); %Basophils 0.2 % (0.0-1.0); %Eosinophils 1.4 % (0.0-10.0); %Lymphocytes 7.1 % (21.0-51.0); %Monocytes 7.7 % (0.0-10.0); Hematocrit 28.6 % (36.0-47.0); Mean Platelet Volume 6.6 fL (7.4-10.4); Red Blood Cell (RBC) Count 3.22 mill/uL (4.20-5.40); White Blood Cell (WBC) Count 9.2 thou/uL (4.8-10.8)
[2017-09-10] MEDS ORDERED: Propofol 500 MG/50 ML VIAL ONE (07:17)
[2017-09-10] MEDS ORDERED: Diprivan 40 ML ONE (09:07)
[2017-09-10] MEDS ORDERED: Propofol 200 MG/20 ML VIAL ONE (09:30)
[2017-09-10] MEDS ORDERED: Lidocaine 1% PF 5 ML VIAL ONE (09:30)
[2017-09-10] MEDS ORDERED: Triamcinolone 40 MG/ML VIAL ONE (09:44)
--- NOTE | 2017-09-10 09:45 | PDOC.PN ---
- Subjective Encounter Start Date: 09/10/17 Encounter Start Time: 11:35 Subjective: Patient with EGD this AM, dilated out some scar tissue per -: patient. No other complaints. - Objective Resuscitation Status: Resuscitation Status FULL:Full Resuscitation MAR Reviewed: Yes Vital Signs & Weight: Vital Signs (12 hours) Temp Pulse Resp BP Pulse Ox 09/10/17 07:09 98.2 F 95 20 157/73 H 98 09/10/17 04:00 98.8 F 97 20 154/91 H 98 09/10/17 00:00 99.1 F 102 H 20 158/71 H 98 Weight Admit Weight 156 lb 4.8 oz Weight 160 lb 3.2 oz I&O: 09/09/17 09/10/17 09/11/17 06:59 06:59 06:59 Intake Total 3740 1945 Output Total 2225 1950 Balance 1515 -5 Result Diagrams: 09/10/17 04:05 09/09/17 04:11 Phys Exam - Physical Examination Constitutional: NAD HEENT: moist MMs Respiratory: no wheezing, no rales, no rhonchi Cardiovascular: RRR Gastrointestinal: soft, positive bowel sounds Neurological: non-focal, moves all 4 limbs Psychiatric: normal affect, A&O x 3 Dx/Plan (1) Lung cancer Code(s): C34.90 - MALIGNANT NEOPLASM OF UNSP PART OF UNSP BRONCHUS OR LUNG Status: Acute Qualifiers: Laterality: right Lung location: lower lobe of lung Qualified Code(s): C34.31 - Malignant neoplasm of lower lobe, right bronchus or lung Comment: CT shows recurrence (2) Acute respiratory failure with hypoxia Code(s): J96.01 - ACUTE RESPIRATORY FAILURE WITH HYPOXIA Status: Acute Comment: Multifactorial given A-fib RVR, suspected pneumonia and effusion, continue O2 supplementation and provide supportive care (3) Parapneumonic effusion Code(s): J18.9 - PNEUMONIA, UNSPECIFIED ORGANISM; J91.8 - PLEURAL EFFUSION IN OTHER CONDITIONS CLASSIFIED ELSEWHERE Status: Acute Comment: s/p thoracentesis, await final cx results, appreciate Pulmonology assistance (4) Pneumonia Code(s): J18.9 - PNEUMONIA, UNSPECIFIED ORGANISM Status: Acute Qualifiers: Laterality: right Lung location: lower lobe of lung Comment: Suspected with gm + cocci and associated effusion, Continue Levaquin 750mg IV daily (5) Atrial fibrillation with RVR Code(s): I48.91 - UNSPECIFIED ATRIAL FIBRILLATION Status: Acute Comment: New -onset A-fib RVR now SR, continue Cardizem gtt, rate control measures, appreciate Cardiology assistance (6) HTN (hypertension) Code(s): I10 - ESSENTIAL (PRIMARY) HYPERTENSION Status: Chronic Qualifiers: Hypertension type: essential hypertension Qualified Code(s): I10 - Essential (primary) hypertension Comment: Resume home BP regimen and monitor clinically (7) Subclinical hypothyroidism Code(s): E03.9 - HYPOTHYROIDISM, UNSPECIFIED Status: Acute Comment: fT4 normal, will check fT3 - Plan cont current plan of care, continue antibiotics, PT/OT, DVT proph w/SCDs * . - Discharge Encounter end time: 11:45
[2017-09-10] MEDS: Pantoprazole 40 MG VIAL IVP SCH (10:46)
[2017-09-10] MEDS: Lisinopril 10 MG TAB PO SCH ×2 (10:47→20:47)
[2017-09-10] MEDS: Acyclovir 400 mg Tablet PO SCH ×4 (10:47→20:47)
[2017-09-10] MEDS: Furosemide 20 MG/2 ML VIAL SLOW IVP SCH (10:47)
--- NOTE | 2017-09-10 12:00 | OP ---
DATE OF PROCEDURE: 09/10/2017 SURGEON: Garth Mar M.D. OPERATIVE PROCEDURE: Esophagogastroduodenoscopy with dilatation, biopsy and injection. PREOPERATIVE DIAGNOSES: 1. Dysphagia for solids greater than liquids. 2. A 30-pound weight loss. 3. Prior history of lung cancer in 2012 with radiation therapy and chemotherapy. POSTOPERATIVE DIAGNOSES: 1. In the distal third of the esophagus there was a smooth stricture which is atrophic and fibrotic , but not able to be passed with the endoscope. It was dilated to 12 mm and able to be passed. Sub sequently dilated to 15 mm injected with steroids 10 mL in four different quadrants for a total of 4 0 mL. Biopsies were taken from the stricture, all had a benign appearance. 2. 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 3. Otherwise, normal esophagogastroduodenoscopy. RECOMMENDATIONS: 1. Await biopsies. 2. Repeat EGD and dilatation in 2-3 weeks if needed. 3. PPI therapy. ANESTHESIA: TIVA. PROCEDURE IN DETAIL: After the patient was informed of the risks, benefits, possible complications of endoscopy including perforation, bleeding, reactions to medication and aspiration, informed conse nt was obtained. The patient brought to endoscopy suite where she was sedated in gradual fashion. Once she was comfortable, a bite block was placed in the incisural orifice. The endoscope was advan guru through the esophagus, stomach and second and third portion of duodenum and slowly removed. In the distal third of the esophagus tight stricture was encountered that could not be passed with the endoscope. The mucosa was atrophic and this appeared to be extrinsic fibrotic compression. The are a was dilated with a 12 mm balloon. The scope was advanced beyond this. The distal esophagus noted to have hiatal hernia, sliding type 5 cm with irregular squamocolumnar junction with some changes of reflux and also some other features concerning for Acuña's. These were biopsied. The endoscop e was advanced to the stomach, forward and retroflexed views were normal. The stomach was normal, t he duodenum was normal as well to the second portion. The scope was then removed. Back at the esophagus where biopsies were taken also the stricture in the distal third of the esopha ruthie. The stricture was injected with 40 mL of Kenalog 0 mL in one of each of the four quadrants. A t this point, a dilatation was then performed as the scope could not pass through very easily, it wa s dilated from 12-15 mm with good effect. There are no signs of perforation. The scope was removed . The patient tolerated the procedure well with no complications.
--- NOTE | 2017-09-10 13:27 | PRG ---
DATE OF SERVICE: 09/10/2017 Ms. Kirkpatrick's events have been reviewed this admission. She was admitted with shortness of breath. She has undergone a thoracentesis that revealed more of a transudative effusion. She has had chemotherapy for non-small cell lung cancer in 2014. She has not kept any follow up nhan ointments with her oncologist because she says she has no healthcare coverage. PHYSICAL EXAMINATION: VITAL SIGNS: She is now afebrile, heart rate 104, respiratory rate 20, oximetry is 98, blood pressu re 166/73. LUNGS: She has decreased breath sounds at her right base. HEART: Regular rhythm. ABDOMEN: Abdomen is soft. She has severe esophageal stricture noted this admission. CT of her chest suggestive of mediastinal lymphadenopathy and abnormalities in her right hilum. Thi s CT will need to be compared to her [facility] films. IMPRESSION: ? Recurrent non-small cell lung cancer.
--- NOTE | 2017-09-10 13:41 | PDOC.CTH ---
<Katherine Hong - Last Filed: 09/10/17 13:37> Cardiology Progress Note - Subjective The pt seen and examined. No overnight events. No cardiac complaints. She became [place] after she walked 100ft with PT today; - Objective Vital Signs Temp Pulse Resp BP BP BP Pulse Ox 09/10/17 11:19 98.0 F 104 H 20 166/73 H 98 09/10/17 10:51 107 H 160/76 H 09/10/17 10:47 132/58 L 09/10/17 08:00 98.2 F 95 20 98 09/10/17 07:09 98.2 F 95 20 157/73 H 98 09/10/17 04:00 98.8 F 97 20 154/91 H 98 Admit Weight 156 lb 4.8 oz Weight 160 lb 3.2 oz 09/09/17 09/10/17 09/11/17 06:59 06:59 06:59 Intake Total 3740 1945 Output Total 2225 1950 Balance 1515 -5 - Physical Examination General/Neuro: alert & oriented x3 Neck: no JVD present Lungs: other: (diminished in Rt lower lob) Heart: RRR Abdomen: soft Extremities: other: (No edemas) - Telemetry Telemetry Rhythm: SR - Labs Result Diagrams: 09/10/17 04:05 09/09/17 04:11 Troponin/CKMB Troponin I 0.012 ng/mL (< 0.028) 09/08/17 13:02 - Assessment/Plan 1. Afib with RVR - remain SR with Diltiazem 120mg daily; cont. monitor on tele; Hyperthyroidism may cause Afib; 2. Acute respiratory failure - possible 2ndary to Plural effusion and recurrent Rt Lung Ca; SOB with exercise with PTs;managed by four horse hitch driver 3. Plural Effusion - the pt's condition is stable after Rt Plural effusion evacuation on 09/08/17; managed by Director Global 3. HTN - Increase Lisinopril 10mg daily to BID 4. Hyperthyroidism - TSH 0.1029 and Free T4 1.24; T3 will be checked tomorrow; managed by PCP 5. hx of smoking and Lung Ca in 2014 with Chemo and radiation 6. Chronic narrowing of Esophageal structure - EGD with Dilation and biopsy today; short segment of Barretts' Esophagus MAR reviewed Review of Systems - Review of Systems Constitutional: reports: no symptoms reported EENTM: reports: no symptoms reported Respiratory: reports: no symptoms reported Cardiac (ROS): reports: no symptoms reported ABD/GI: reports: no symptoms reported : reports: no symptoms reported Musculoskeletal: reports: no symptoms reported <Janine Baker Jose - Last Filed: 09/10/17 16:40> Cardiology Progress Note - Objective Vital Signs Temp Pulse Pulse Pulse Resp BP BP 09/10/17 15:17 98.0 F 106 H 20 09/10/17 13:15 99 115 H 172/63 H 09/10/17 11:19 98.0 F 104 H 20 09/10/17 10:51 107 H 160/76 H 09/10/17 10:47 132/58 L 09/10/17 08:00 98.2 F 95 20 09/10/17 07:09 98.2 F 95 20 BP BP BP Pulse Ox 09/10/17 15:17 145/83 H 97 09/10/17 13:15 192/88 H 09/10/17 11:19 166/73 H 98 09/10/17 10:51 09/10/17 10:47 09/10/17 08:00 98 09/10/17 07:09 157/73 H 98 Admit Weight 156 lb 4.8 oz Weight 160 lb 3.2 oz 09/09/17 09/10/17 09/11/17 06:59 06:59 06:59 Intake Total 3740 1945 Output Total 2225 1950 400 Balance 1515 -5 -400 - Labs Result Diagrams: 09/10/17 04:05 09/09/17 04:11 Troponin/CKMB Troponin I 0.012 ng/mL (< 0.028) 09/08/17 13:02 - Assessment/Plan Pt. seen and eval. I agree with the A/P by the DERRICK OPERATOR. She denies any cardiac complaints this afternoon. She had an EGD earlier today. Exam : chest clear except in right base. No wheeze. RRR. No edema. Overall cardiac status is stable.
[2017-09-10 17:11] LABS: Fungus Smear Status Final report (.)
[2017-09-10] MEDS: Albuterol Sulfate 2.5 mg/3 ml Neb NEB PRN (19:09)
[2017-09-11] MEDS: Acyclovir 400 mg Tablet PO SCH ×5 (01:10→20:30)
[2017-09-11] MEDS: Lisinopril 10 MG TAB PO SCH ×2 (08:19→20:23)
[2017-09-11] MEDS: Furosemide 20 MG/2 ML VIAL SLOW IVP SCH (08:22)
[2017-09-11] MEDS: Pantoprazole 40 MG VIAL IVP SCH (08:22)
--- NOTE | 2017-09-11 09:20 | PDOC.PN ---
- Subjective Encounter Start Date: 09/11/17 Encounter Start Time: 09:20 Subjective: Feeling more energetic today. She was able to swallow liquids after her EGD -: yesterday, but this AM all liquids hanging up in esophagus and come back ou - Objective Resuscitation Status: Resuscitation Status FULL:Full Resuscitation MAR Reviewed: Yes Vital Signs & Weight: Vital Signs (12 hours) Temp Pulse Resp BP BP Pulse Ox 09/11/17 08:19 142/84 H 09/11/17 08:00 97.6 F 97 20 142/84 H 96 09/11/17 04:01 97 09/11/17 03:10 98.6 F 100 16 148/82 H 96 09/10/17 23:09 98.2 F 100 16 145/75 H 98 Weight Admit Weight 156 lb 4.8 oz Weight 160 lb 3.2 oz I&O: 09/10/17 09/11/17 09/12/17 06:59 06:59 06:59 Intake Total 1945 2120 Output Total 1950 1100 Balance -5 1020 Result Diagrams: 09/10/17 04:05 09/09/17 04:11 Phys Exam - Physical Examination Constitutional: NAD HEENT: moist MMs Respiratory: no wheezing, no rales, no rhonchi Cardiovascular: RRR, no significant murmur Gastrointestinal: soft, positive bowel sounds Neurological: non-focal, moves all 4 limbs Psychiatric: normal affect, A&O x 3 Dx/Plan (1) Lung cancer Code(s): C34.90 - MALIGNANT NEOPLASM OF UNSP PART OF UNSP BRONCHUS OR LUNG Status: Acute Qualifiers: Laterality: right Lung location: lower lobe of lung Qualified Code(s): C34.31 - Malignant neoplasm of lower lobe, right bronchus or lung Comment: CT shows recurrence (2) Acute respiratory failure with hypoxia Code(s): J96.01 - ACUTE RESPIRATORY FAILURE WITH HYPOXIA Status: Acute Comment: Multifactorial given A-fib RVR, suspected pneumonia and effusion, continue O2 supplementation and provide supportive care (3) Parapneumonic effusion Code(s): J18.9 - PNEUMONIA, UNSPECIFIED ORGANISM; J91.8 - PLEURAL EFFUSION IN OTHER CONDITIONS CLASSIFIED ELSEWHERE Status: Acute Comment: s/p thoracentesis, await final cx results, appreciate Pulmonology assistance (4) Pneumonia Code(s): J18.9 - PNEUMONIA, UNSPECIFIED ORGANISM Status: Acute Qualifiers: Laterality: right Lung location: lower lobe of lung Comment: Suspected with gm + cocci and associated effusion, Continue Levaquin 750mg IV daily (Day 5 abx) (5) Atrial fibrillation with RVR Code(s): I48.91 - UNSPECIFIED ATRIAL FIBRILLATION Status: Resolved Comment: New-onset A-fib RVR now SR, continue Cardizem gtt, rate control measures, appreciate Cardiology assistance (6) HTN (hypertension) Code(s): I10 - ESSENTIAL (PRIMARY) HYPERTENSION Status: Chronic Qualifiers: Hypertension type: essential hypertension Qualified Code(s): I10 - Essential (primary) hypertension Comment: Resume home BP regimen and monitor clinically (7) Subclinical hypothyroidism Code(s): E03.9 - HYPOTHYROIDISM, UNSPECIFIED Status: Acute Comment: fT4 normal, fT3 low, no evidence significant hyperthyroidism (8) Esophageal stricture Code(s): K22.2 - ESOPHAGEAL OBSTRUCTION Status: Acute Plan: worse this AM, possibly swelling post dilation? - Plan cont current plan of care, continue antibiotics Resume IV fluids * . - Discharge Day Encounter end time: 09:40
[2017-09-11] MEDS ORDERED: Sodium Chloride 0.45% 1,000 ML IV SCH (09:45)
--- NOTE | 2017-09-11 11:10 | PDOC.CTH ---
<Katherine Hong - Last Filed: 09/11/17 11:08> Cardiology Progress Note - Subjective the pt seen and examined. No cardiac complaints. Difficulty swallowing since this AM. No SOB with movement, however, more coughing since she has not received breathing treatment lately per the pt's report - Objective Vital Signs Temp Pulse Resp BP BP Pulse Ox 09/11/17 08:20 97.6 F 97 20 09/11/17 08:19 142/84 H 09/11/17 08:00 97.6 F 97 20 142/84 H 96 09/11/17 04:01 97 09/11/17 03:10 98.6 F 100 16 148/82 H 96 09/10/17 23:09 98.2 F 100 16 145/75 H 98 Admit Weight 156 lb 4.8 oz Weight 160 lb 3.2 oz 09/10/17 09/11/17 09/12/17 06:59 06:59 06:59 Intake Total 1945 2120 Output Total 1950 1100 Balance -5 1020 - Physical Examination General/Neuro: alert & oriented x3 Neck: no JVD present Lungs: other: (wheezing) Heart: RRR Abdomen: soft Extremities: other: (No edemas) - Telemetry Telemetry Rhythm: SR 80-90s - Labs Result Diagrams: 09/10/17 04:05 09/09/17 04:11 Troponin/CKMB Troponin I 0.012 ng/mL (< 0.028) 09/08/17 13:02 - Assessment/Plan 1. Afib with RVR - remain SR with HR 80-90s. on Diltiazem 120mg daily; cont. monitor on tele; Hyperthyroidism may cause Afib; 2. Acute respiratory failure - possible 2ndary to Plural effusion and recurrent Rt Lung Ca; no SOB with walking/exercise; managed by caption writer 3. Plural Effusion - the pt's condition is stable after Rt Plural effusion evacuation on 09/08/17; managed by Lean Consultant 3. HTN - well controlled with current medication; cont. monitor 4. Hyperthyroidism - TSH 0.1029, Free T4 1.24, and T3 1.5; managed by PCP 5. hx of smoking and Lung Ca in 2014 with Chemo and radiation - remission in 2014 6. Chronic narrowing of Esophageal structure - EGD with Dilation and biopsy on 09/10/17; the study revealed short segment of Barretts' Esophagus; Complains of difficulty swallowing since this AM; MAR reviewed Review of Systems - Review of Systems Constitutional: reports: no symptoms reported EENTM: reports: no symptoms reported Respiratory: reports: see HPI Cardiac (ROS): reports: no symptoms reported ABD/GI: reports: no symptoms reported : reports: no symptoms reported Musculoskeletal: reports: no symptoms reported Skin: reports: no symptoms reported <Janine Baker - Last Filed: 09/11/17 22:36> Cardiology Progress Note - Objective Vital Signs Temp Pulse Resp BP BP BP Pulse Ox 09/11/17 20:28 90 18 98 09/11/17 20:23 169/78 H 09/11/17 19:10 97.9 F 88 22 H 169/78 H 98 09/11/17 17:00 98 F 92 16 97 09/11/17 16:55 98 F 90 18 150/76 H 97 09/11/17 16:07 92 16 146/65 H 98 09/11/17 12:19 96 155/76 H 09/11/17 11:49 98.4 F 96 20 155/76 H 99 Admit Weight 156 lb 4.8 oz Weight 160 lb 3.2 oz 09/10/17 09/11/17 09/12/17 06:59 06:59 06:59 Intake Total 1945 2120 537 Output Total 1950 1100 600 Balance -5 1020 -63 - Labs Result Diagrams: 09/10/17 04:05 09/09/17 04:11 Troponin/CKMB Troponin I 0.012 ng/mL (< 0.028) 09/08/17 13:02 - Assessment/Plan Pt.seen and eval. by me.I agree with the assessment and plan by the ENVIRONMENT FRIENDLY LANDSCAPE DESIGNER. Bilat. wheezing is present.
--- NOTE | 2017-09-11 16:11 | PRG ---
DATE OF SERVICE: 09/11/2017 SUBJECTIVE: Jeniffer Kirkpatrick had difficulty swallowing this morning. She did get down pudding for cornell ch. OBJECTIVE: VITAL SIGNS: She is afebrile, heart rate 96, blood pressure 155/76, respiratory rate is 20. LUNGS: Remarkable for decreased breath sounds at her right base. HEART: Regular rhythm. ABDOMEN: Soft. 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 I suspect this is the cause of her esopha geal issues. I have discussed the above with Dr. Mar. PET imaging would be the best next option since she has a negative PET post treatment. If her PET imaging lights up her mediastinum and righ t lower lobe lesion then this would be a strong argument that she simply has recurrence of tumor and this would save her an invasive procedure. If this is not feasible, then bronchoscopy could be ent ertained. I have asked Oncology to look in on her. I also discussed feeding tube placement with Dr Elke Mar and he will discuss with her whether or not he feels it is indicated.
--- NOTE | 2017-09-11 18:49 | CON ---
DATE OF CONSULTATION: 09/11/2017 REASON FOR CONSULTATION: Lung cancer. HISTORY OF PRESENT ILLNESS: Ms. Kirkpatrick is a pleasant 61-year-old female who has a history of non- small cell lung cancer, squamous cell type, who underwent chemoradiation in 2014 and has been in rem ission since that time. She presented to the emergency room with a 3-week history of increasing kirstin rtness of breath. She states that she has had upper respiratory infections off and on over the past 6 months. She also has had dysphagia with a poor appetite. In the emergency room, she had a chest x-ray, which showed a right-sided pleural effusion and a possible right lower lobe pneumonia. She was started on IV antibiotics. She also had new onset atrial fibrillation and was on a Cardizem dri p for a short period of time. Dr. Lange has seen the patient and performed a thoracentesis of the right pleural effusion. The fluid was a transudate. Dr. Mar saw the patient for her dysphagia and performed an EGD with esophageal dilation. She had a stricture at her prior radiation site. Th e chest CT scan performed on 09/09; there was a questionable nodule in the right subcarinal region. Patient currently denies any chest pain or shortness of breath. She is taking p.o., with some [facility] anical soft fluid today. PAST MEDICAL HISTORY: 1. Stage III squamous cell carcinoma of the lung. 2. Hypertension. 3. Chronic obstructive pulmonary disease. 4. History of empyema. 5. Anxiety. 6. History of tobacco use. PAST SURGICAL HISTORY: 1. Hysterectomy. 2. MediPort placement and removal. ALLERGIES: BACTRIM. HOME MEDICATIONS: 1. Albuterol nebulizer. 2. Lisinopril 10 mg daily. FAMILY HISTORY: She has a child with breast cancer. SOCIAL HISTORY: Single, has four children. Lives alone. No alcohol, tobacco or illicit drug use. REVIEW OF SYSTEMS: A 10-point review of systems is negative except for noted in HPI. PHYSICAL EXAMINATION: VITAL SIGNS: Temperature is 98.4, pulse is 92, respiratory rate 16, BP is 146/65. She is 98% on ro om air. GENERAL: Well-developed, well-nourished female in no acute distress. HEENT: Normocephalic and atraumatic. Pupils are equal and reactive to light. NECK: Supple without JVD or masses. CARDIOVASCULAR: Irregular rate and rhythm. LUNGS: Diminished throughout. ABDOMEN: Soft and nontender. Bowel sounds are positive. EXTREMITIES: No clubbing, cyanosis or edema. SKIN: No rash. HEMATOLOGIC: No petechia or purpura. NEUROLOGIC: Nonfocal. PSYCHIATRIC: The patient is alert and oriented and appropriate. PERTINENT LABORATORY AND X-RAYS: Current WBCs are 9.2, hemoglobin 8.9, hematocrit 28.6 and platelet count 376,000. Sodium is 139, potassium 3.8, chloride 108, CO2 is 23, BUN is 20 and creatinine 0.7 . Radiology per HPI. ASSESSMENT: 1. History of non-small cell lung cancer, squamous cell type, status post chemoradiation in 2014. 2. Right pleural effusion. 3. Atrial fibrillation, now rate controlled. 4. Dysphagia with esophageal stricture, likely from radiation. DISCUSSION: The patient's nodule on CT scan is consistent with prior scanning. It may represent sc ar tissue. Ideally, she would have a PET scan in the outpatient setting; however, she has no insura nce and it will be very difficult to obtain. She will follow up with us in the outpatient setting, so she can be continually monitored. We will repeat a chest x-ray or CT scan in the next few weeks. The case was discussed with Dr. Juarez.
[2017-09-11] MEDS: Albuterol Sulfate 2.5 mg/3 ml Neb NEB PRN (20:28)
[2017-09-11] MEDS ORDERED: Pantoprazole 40 MG VIAL IVP SCH (21:00)
[2017-09-12] MEDS: Acyclovir 400 mg Tablet PO SCH ×4 (00:55→20:36)
--- NOTE | 2017-09-12 07:32 | PDOC.PN ---
- Subjective Encounter Start Date: 09/12/17 Encounter Start Time: 10:00 Subjective: Patient able to swallow now. No SOB. No N/V. No abdominal -: pain. - Objective Resuscitation Status: Resuscitation Status FULL:Full Resuscitation MAR Reviewed: Yes Vital Signs & Weight: Vital Signs (12 hours) Temp Pulse Resp BP BP BP Pulse Ox 09/12/17 04:00 97.7 F 91 18 157/71 H 97 09/12/17 00:26 98 09/12/17 00:04 97.6 F 95 20 157/74 H 96 09/11/17 20:28 90 18 98 09/11/17 20:23 169/78 H Weight Admit Weight 156 lb 4.8 oz Weight 160 lb 3.2 oz I&O: 09/11/17 09/12/17 09/13/17 06:59 06:59 06:59 Intake Total 2120 1487 Output Total 1100 600 Balance 1020 887 Result Diagrams: 09/10/17 04:05 09/09/17 04:11 Phys Exam - Physical Examination Constitutional: NAD HEENT: moist MMs Respiratory: no wheezing, no rales coarse breath sounds Cardiovascular: RRR, no significant murmur Gastrointestinal: soft, positive bowel sounds Neurological: non-focal, moves all 4 limbs Psychiatric: normal affect, A&O x 3 Dx/Plan (1) Lung cancer Code(s): C34.90 - MALIGNANT NEOPLASM OF UNSP PART OF UNSP BRONCHUS OR LUNG Status: Acute Qualifiers: Laterality: right Lung location: lower lobe of lung Qualified Code(s): C34.31 - Malignant neoplasm of lower lobe, right bronchus or lung Comment: CT shows recurrence (2) Acute respiratory failure with hypoxia Code(s): J96.01 - ACUTE RESPIRATORY FAILURE WITH HYPOXIA Status: Acute Comment: Multifactorial given A-fib RVR, suspected pneumonia and effusion, continue O2 supplementation and provide supportive care (3) Parapneumonic effusion Code(s): J18.9 - PNEUMONIA, UNSPECIFIED ORGANISM; J91.8 - PLEURAL EFFUSION IN OTHER CONDITIONS CLASSIFIED ELSEWHERE Status: Acute Comment: s/p thoracentesis, await final cx results, appreciate Pulmonology assistance (4) Pneumonia Code(s): J18.9 - PNEUMONIA, UNSPECIFIED ORGANISM Status: Acute Qualifiers: Laterality: right Lung location: lower lobe of lung Comment: Suspected with gm + cocci and associated effusion, Continue Levaquin 750mg IV daily (Day 5 abx) (5) Atrial fibrillation with RVR Code(s): I48.91 - UNSPECIFIED ATRIAL FIBRILLATION Status: Resolved Comment: New-onset A-fib RVR now SR, continue Cardizem gtt, rate control measures, appreciate Cardiology assistance (6) HTN (hypertension) Code(s): I10 - ESSENTIAL (PRIMARY) HYPERTENSION Status: Chronic Qualifiers: Hypertension type: essential hypertension Qualified Code(s): I10 - Essential (primary) hypertension Comment: Resume home BP regimen and monitor clinically (7) Subclinical hypothyroidism Code(s): E03.9 - HYPOTHYROIDISM, UNSPECIFIED Status: Acute Comment: fT4 normal, fT3 low, no evidence significant hyperthyroidism (8) Esophageal stricture Code(s): K22.2 - ESOPHAGEAL OBSTRUCTION Status: Resolved Comment: Swallowing well last night and this morning. - Plan cont current plan of care, continue antibiotics Patient now swallowing well. Will d/c home when ok with -: GI and Pulm. O/p followup with Heme/Onc for PET scan. * . - Discharge Day Encounter end time: 10:30
[2017-09-12] MEDS: Lisinopril 10 MG TAB PO SCH ×2 (08:04→20:28)
[2017-09-12] MEDS: Albuterol Sulfate 2.5 mg/3 ml Neb NEB PRN (14:45)
--- NOTE | 2017-09-12 17:47 | PRG ---
DATE OF SERVICE: 09/12/2017 SUBJECTIVE: Ms. Kirkpatrick is clinically unchanged, remains afebrile. OBJECTIVE: VITAL SIGNS: Blood pressure this afternoon is 147/74, heart rate is 70, respiratory rates in the teens. Exam is unchanged. He is now on p.o. antibiotics. Esophageal biopsies are still pending. IMPRESSION: ? Recurrent squamous cell carcinoma with postobstructive pneumonia and esophageal obstruction secondary mediastinal lymphadenopathy. PLAN: Per oncology, outpatient imaging would be best. Critical care time 30 min. MTDD
[2017-09-13 05:29] LABS: #Basophils 0.2 thou/uL (0.0-0.2); #Eosinphils 0.2 thou/uL (0.0-0.7); #Lymphocytes 0.6 thou/uL (1.20-3.40); #Monocytes 0.6 thou/uL (0.11-0.59); %Basophils 1.9 % (0.0-1.0); %Eosinophils 2.8 % (0.0-10.0); %Lymphocytes 6.6 % (21.0-51.0); %Monocytes 6.7 % (0.0-10.0); Hematocrit 30.9 % (36.0-47.0); Mean Platelet Volume 6.5 fL (7.4-10.4); Red Blood Cell (RBC) Count 3.49 mill/uL (4.20-5.40); White Blood Cell (WBC) Count 8.5 thou/uL (4.8-10.8)
[2017-09-13 05:48] LABS: Anion Gap 10 mmol/L (10-20); BUN (Urea Nitrogen) 13 mg/dL (9.8-20.1); Calc. Creatinine Clearance 76 mL/min (70-130); Calcium 8.4 mg/dL (7.8-10.44); Carbon Dioxide 32 mmol/L (23-31); Chloride 101 mmol/L (98-107); Estimated GFR-MDRD 76
[2017-09-13] MEDS: Lisinopril 10 MG TAB PO SCH ×2 (07:56→21:13)
--- NOTE | 2017-09-13 09:53 | PRG ---
DATE OF SERVICE: 09/13/2017 SUBJECTIVE: Ms. Kirkpatrick has no complaints today. She went into atrial fibrillation. She is back i n sinus rhythm now. OBJECTIVE: VITALSIGNS: She is afebrile, heart rate is 84, blood pressure 159/73, respiratory rate 16, temperatu re is 96. LUNGS: Clear. CARDIOVASCULAR: Regular rhythm. ABDOMEN: Soft. IMPRESSION AND PLAN: 1. Pneumonia? post-obstruction. 2. Recurrent squamous cell carcinoma. 3. Atrial fibrillation with a history in the past. She has been seen by Dr. Baker in the past. 4. Esophageal stricture, biopsies of her mucosa are negative for malignancy or Acuña's. It is still unclear whether or not this is extrinsic compression or just a simple stricture. She says she is swallowing adequately. It is unclear to me whether or not she has retaining food in her esophagus. Given that she will continue to be in the hospital, we will go ahead and order MRI imaging with and w ithout contrast and a bone scan. If we find evidence of metastatic disease, there will be no reason to wait for a PET imaging. It is still unclear where if and when she will get a PET imaging as an ou tpatient. I have again explained to her that bronchoscopy can be performed with the least invasive i maging and procedures, which is the best option at least for now.
[2017-09-13] MEDS: Acyclovir 400 mg Tablet PO SCH ×4 (11:33→21:13)
[2017-09-13] MEDS: Albuterol Sulfate 2.5 mg/3 ml Neb NEB PRN ×2 (12:08→20:43)
--- NOTE | 2017-09-13 12:36 | MRI ---
MRI BRAIN WITH AND WITHOUT CONTRAST: CLINICAL HISTORY: Lung malignancy. Evaluate for intracranial metastases. FINDINGS: The ventricular system is normal in size. The septum pellucidum and third ventricle are midline. No acute territorial infarction, mass effect, or midline shift. There is minimal chronic microvascular ischemic disease. No intracranial hemorrhagic susceptibility. There is no evidence of enhancing in traaxial mass. Patient motion limits evaluation of the skull base flow voids. IMPRESSION: 1. No acute intracranial abnormalities. 2. No intracranial metastases. 3. Minimal chronic microvascular ischemic disease. POS: ANDERS
--- NOTE | 2017-09-13 12:45 | PRG ---
DATE OF SERVICE: 09/11/2017 Ms. Kirkpatrick this morning could not eat well, but now is tolerating liquids just fine. She has no pa in. OBJECTIVE: VITAL SIGNS: Temperature is 97, pulse 95, blood pressure 157/74. ABDOMEN: Soft, nontender. LUNGS: Clear. ASSESSMENT: Stricture in the esophagus, dilated. It is unclear if this is radiation stricture or r elated to recurrent neoplasia in the chest and history of squamous cell carcinoma of the lung in the past. PLAN: I think as long as she is tolerating full liquids she can go home on oral supplements and diet . Follow up with Oncology in the outpatient setting.
--- NOTE | 2017-09-13 14:27 | PDOC.PN ---
- Subjective Encounter Start Date: 09/13/17 Encounter Start Time: 08:20 Pt seen for followup re: atrial fibrillation. Denies chest pain, shortness of breath, fevers or chills. - Objective Resuscitation Status: Resuscitation Status FULL:Full Resuscitation MAR Reviewed: Yes Vital Signs & Weight: Vital Signs (12 hours) Temp Pulse Resp BP BP BP Pulse Ox 09/13/17 12:50 91 165/74 H 09/13/17 12:08 91 20 99 09/13/17 11:32 97.7 F 90 18 165/74 H 96 09/13/17 08:00 97.5 F L 84 16 96 09/13/17 07:56 159/73 H 09/13/17 07:25 97.5 F L 84 16 159/73 H 96 09/13/17 04:08 98.7 F 93 18 142/68 H 97 Weight Admit Weight 156 lb 4.8 oz Weight 142 lb 12.8 oz I&O: 09/12/17 09/13/17 09/14/17 06:59 06:59 06:59 Intake Total 1487 500 Output Total 600 Balance 887 500 Result Diagrams: 09/13/17 04:52 09/13/17 04:51 EKG Reviewed by me: Yes (Tele: NSR (a. fib overnight)) Phys Exam - Physical Examination Constitutional: NAD HEENT: moist MMs, sclera anicteric Neck: supple Respiratory: clear to auscultation bilateral Cardiovascular: RRR Gastrointestinal: soft, non-tender Musculoskeletal: pulses present Neurological: moves all 4 limbs Psychiatric: normal affect Skin: no rash Dx/Plan (1) Lung cancer Code(s): C34.90 - MALIGNANT NEOPLASM OF UNSP PART OF UNSP BRONCHUS OR LUNG Status: Acute Qualifiers: Laterality: right Lung location: lower lobe of lung Qualified Code(s): C34.31 - Malignant neoplasm of lower lobe, right bronchus or lung Comment: CT shows recurrence (2) CKD (chronic kidney disease) stage 3, GFR 30-59 ml/min Status: Chronic (3) HTN (hypertension) Code(s): I10 - ESSENTIAL (PRIMARY) HYPERTENSION Status: Chronic Qualifiers: Hypertension type: essential hypertension Qualified Code(s): I10 - Essential (primary) hypertension Comment: Resume home BP regimen and monitor clinically (4) Paroxysmal atrial fibrillation Code(s): I48.0 - PAROXYSMAL ATRIAL FIBRILLATION Status: Chronic - Plan PT/OT, out of bed/ambulate, DVT proph w/SCDs * . Pt to have MRI brain to r/o brain mets. s/p stricture dilation, biopsies negative for malignancy. Monitor vital signs, titrate antihypertensives as needed. Review of Systems - Review of Systems Constitutional: negative: Fever, Chills, Sweats, Weakness, Malaise Respiratory: negative: Cough, Dry, Shortness of Breath, Hemoptysis, SOB with Excertion, Pleuritic Pain, Sputum, Wheezing Cardiovascular: negative: Chest Pain, Palpitations, Orthopnea, Paroxysmal Noc. Dyspnea, Edema, Light Headedness - Medications/Allergies Allergies/Adverse Reactions: Allergies Allergy/AdvReac Type Severity Reaction Status Date / Time sulfamethoxazole Allergy Verified 03/16/15 17:15 [From Bactrim] trimethoprim [From Bactrim] Allergy Verified 03/16/15 17:15 Medications: Current Medications Acetaminophen (Tylenol) 1,000 mg PO Q6H PRN PRN Reason: Headache/Fever or Mild Pain Acyclovir (Zovirax) 400 mg PO 5XD [facility] Stop: 09/14/17 16:01 Last Admin: 09/13/17 13:08 Dose: Not Given Albuterol Sulfate (Ventolin) 2.5 mg NEB Q4H PRN PRN Reason: asthma Last Admin: 09/13/17 12:08 Dose: 2.5 mg Clonidine (Catapres) 0.1 mg PO Q4H PRN PRN Reason: Systolic BP > 180 Diltiazem HCl (Cardizem Cd) 120 mg PO 1200 [facility] Last Admin: 09/13/17 12:50 Dose: 120 mg Hydralazine HCl (Apresoline) 10 mg SLOW IVP Q4H PRN PRN Reason: Systolic BP > 180 Levofloxacin (Levaquin) 750 mg PO 2000 [facility] Last Admin: 09/12/17 20:30 Dose: 750 mg Lisinopril (Zestril) 10 mg PO BID [facility] Last Admin: 09/13/17 07:56 Dose: 10 mg Ondansetron HCl (Zofran Odt) 4 mg PO Q6H PRN PRN Reason: Nausea/Vomiting Last Admin: 09/10/17 15:40 Dose: 4 mg Ondansetron HCl (Zofran) 4 mg IVP Q6H PRN PRN Reason: Nausea/Vomiting Pantoprazole Sodium (Protonix) 40 mg PO BID [facility] Last Admin: 09/13/17 07:55 Dose: 40 mg Sodium Chloride (Flush - Normal Saline) 10 ml IVF PRN PRN PRN Reason: Saline Flush Last Admin: 09/11/17 08:22 Dose: 10 ml
--- NOTE | 2017-09-13 14:58 | NM ---
WHOLE BODY BONE SCAN: CLINICAL HISTORY: Lung cancer. RADIOPHARMACEUTICAL: 33 mCi Technetium 99m MDP IV. FINDINGS: There is degenerative activity of the axial and appendicular skeleton which is most notable at the me dial aspect of the left knee. Excreted urinary activity is seen at the pelvis. No scintigraphic danii dence to indicate metastatic disease to the skeletal system. IMPRESSION: 1. No scintigraphic evidence to confirm osseous metastatic disease. 2. Degenerative activity, most notable at the left knee, medially. POS: C
[2017-09-13 15:07] VITALS: BMI 23.7
--- NOTE | 2017-09-13 15:12 | PRG ---
DATE OF SERVICE: 09/13/2017 SUBJECTIVE: Ms. Kirkpatrick is tolerating liquids fine, actually ate a part of a sandwich. OBJECTIVE: VITAL SIGNS: Temperature is 97, pulse 86, blood pressure 157/71. ABDOMEN: Soft and nontender. LABORATORY DATA: No labs. Pathology from biopsy on 09/11/2017, showed normal esophagus and GE junct ion. At stricture, there was some eroded desquamated mucosa with fibrosis with no signs of malignanc y. ASSESSMENT: 1. 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 2. Questionable mass outside the esophagus on CT. 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 RECOMMENDATIONS: We will have to see her back and read out for re-dilatation as needed. If this see ms to be malignant, we can consider stent placement in the esophagus. In the meantime, she should st ay on full liquids with oral supplement drinks and she will need to follow up with Oncology for repea t imaging in this area to see if this was recurrent malignancy and later prior malignancy in this are a.
--- NOTE | 2017-09-13 15:14 | PRG ---
DATE OF SERVICE: 09/13/2017 SUBJECTIVE: Ms. Kirkpatrick is eating sandwiches now without problems. She is not regurgitating. She is tolerating liquids well. OBJECTIVE: VITAL SIGNS: Temperature is 97, pulse 91, and blood pressure 165/75. ABDOMEN: Nontender. LABORATORY DATA: White count 8.5, hemoglobin 9.6, and platelet count 339. Electrolytes within guanaco l limits. ASSESSMENT: 1. The patient was gone home yesterday, but had atrial fibrillation so she stayed. Now that she is here, she had an MRI of the brain. She had a bone scan as well. 2. Biopsies from the esophagus above the GE junction and the stricture were negative for any maligna ncy or Acuña's. RECOMMENDATIONS: Continue PPI. Continue soft diet. At this time, we will follow from a distance. If I can be of any further assistance, please do not hesitate to contact me.
[2017-09-13] MEDS ORDERED: Gadobenate Dimeglumine 529 MG/1 ML (20ML VIAL) ONE (15:30)
--- NOTE | 2017-09-13 17:08 | EKG ---
Test Reason : Blood Pressure : / mmHG Vent. Rate : 125 BPM Atrial Rate : 129 BPM P-R Int : 000 ms QRS Dur : 080 ms QT Int : 300 ms P-R-T Axes : 000 029 -23 degrees QTc Int : 433 ms Atrial fibrillation with rapid ventricular response Nonspecific ST and T wave abnormality , probably digitalis effect Abnormal ECG When compared with ECG of 07-SEP-2017 18:15, (Unconfirmed) Atrial fibrillation has replaced Wide QRS tachycardia Vent. rate has decreased BY 76 BPM Confirmed by ERASMO BARRIOS, DR. Colmenares ([id number]) on 09/13/2017 5:07:52 PM Referred By: Confirmed By:DR. Dedra ZIMMERMAN MD
--- NOTE | 2017-09-13 18:19 | PDOC.CTH ---
Cardiology Progress Note - Subjective Pt. seen and eval. Events of last night noted. She is asymptomatic this evening. She denies any cardiac complaints. - Objective Vital Signs Temp Pulse Resp BP BP Pulse Ox 09/13/17 15:40 98.1 F 89 16 146/65 H 98 09/13/17 12:50 91 165/74 H 09/13/17 12:08 91 20 99 09/13/17 11:32 97.7 F 90 18 165/74 H 96 09/13/17 08:00 97.5 F L 84 16 96 09/13/17 07:56 159/73 H 09/13/17 07:25 97.5 F L 84 16 159/73 H 96 Admit Weight 156 lb 4.8 oz Weight 142 lb 12.8 oz 09/12/17 09/13/17 09/14/17 06:59 06:59 06:59 Intake Total 1487 500 Output Total 600 Balance 887 500 - Physical Examination General/Neuro: alert & oriented x3 Neck: carotid US brisk Lungs: other: (decreased right 1/[address] way up.) Heart: RRR Abdomen: no HSM, NT/ND - Labs Result Diagrams: 09/13/17 04:52 09/13/17 04:51 Troponin/CKMB Troponin I 0.012 ng/mL (< 0.028) 09/08/17 13:02 - Assessment/Plan 1. Afib with RVR - repeat episode of A-fib last night and converted to NSR, remain SR with HR 80-90s. on Diltiazem 120mg daily, I will increase the dose.; cont. monitor on tele; Hyperthyroidism may cause Afib;Her [id number] score is 2. The AHA recommendation would be rhythm control and anticoagulation. I spoke to her about the options but she would like to maintain ASA at this time. Hopefully the diltiazem at an increased dose will maintain NSR. 2. Acute respiratory failure - possible 2ndary to Plural effusion and recurrent Rt Lung Ca; no SOB with walking/exercise; managed by ceramic designer 3. Pleural Effusion - the pt's condition is stable after Rt Plural effusion evacuation on 09/08/17; managed by Interactive Designer. Still has decr. BS on right. 3. HTN - well controlled with current medication; cont. monitor 4. Hyperthyroidism - TSH 0.1029, Free T4 1.24, and T3 1.5; managed by PCP 5. hx of smoking and Lung Ca in 2015 with Chemo and radiation - remission in 2014 6. Chronic narrowing of Esophageal structure - EGD with Dilation and biopsy on 09/10/17; the study revealed short segment of Barretts' Esophagus; Complains of difficulty swallowing since this AM, has been able to eat today.; MAR reviewed Review of Systems - Review of Systems Respiratory: reports: SOB with excertion Cardiac (ROS): reports: irregular heart rate ABD/GI: reports: no symptoms reported : reports: no symptoms reported Musculoskeletal: reports: no symptoms reported Neurological: reports: no symptoms reported
[2017-09-14] MEDS: Acyclovir 400 mg Tablet PO SCH ×4 (01:47→14:17)
[2017-09-14] MEDS: Lisinopril 10 MG TAB PO SCH (08:14)
--- NOTE | 2017-09-14 09:26 | PRG ---
DATE OF SERVICE: 09/14/2017 SUBJECTIVE: Ms. Kirkpatrick did well overnight. Her MRI of her brain was negative. Her bone scan was negative. 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 We are unable to get an outpatient PET image. I will be happy to perform fiberoptic bronchoscopy. I have explained this to her and the oncologist. We will sign off.
--- NOTE | 2017-09-14 12:12 | PDOC.CTH ---
"<Katherine Hong - Last Filed: 09/14/17 11:57> Cardiology Progress Note - Subjective The pt seen and examined. No overnight events. No cardiac complaints. Remain SR with well controlled HR. - Objective Vital Signs Temp Pulse Resp BP BP BP Pulse Ox 09/14/17 11:25 98.3 F 97 18 152/69 H 98 09/14/17 08:15 99 F 99 18 94 L 09/14/17 08:14 133/107 H 09/14/17 07:20 99 F 99 18 133/107 H 94 L 09/14/17 04:00 98.6 F 94 18 142/67 H 97 09/14/17 00:00 99.5 F 65 16 159/71 H 93 L Admit Weight 156 lb 4.8 oz Weight 142 lb 12.8 oz 09/13/17 09/14/17 09/15/17 06:59 06:59 06:59 Intake Total 500 240 Balance 500 240 - Physical Examination General/Neuro: alert & oriented x3 Neck: no JVD present Lungs: CTA Heart: RRR Abdomen: soft Extremities: other: (No edemas) - Telemetry Telemetry Rhythm: SR - Labs Result Diagrams: 09/13/17 04:52 09/13/17 04:51 Troponin/CKMB Troponin I 0.012 ng/mL (< 0.028) 09/08/17 13:02 - Assessment/Plan 1. Afib with RVR - repeat episode of A-fib night of 09/12/17 and converted to NSR, remain SR with HR 80-90s with Diltiazem 240mg daily; cont. monitor on tele ; Her [id number] score is 2. The AHA recommendation would be rhythm control and anticoagulation. However, due to no finance support, she would like to be on ASA 325mg instead of OAC prescription after long discussion of the benefit and the risk of OAC and vs ASA. 2. Acute respiratory failure - possible 2ndary to Plural effusion and recurrent Rt Lung Ca; no SOB with walking/exercise; managed by gymnastics instructor 3. Pleural Effusion - the pt's condition is stable after Rt Plural effusion evacuation on 09/08/17; managed by White Metal Caster. Still has decr. BS on right. 3. HTN - well controlled with current medication; cont. monitor 4. Hyperthyroidism - TSH 0.1029, Free T4 1.24, and T3 1.5; managed by PCP 5. hx of smoking and Lung Ca in 2015 with Chemo and radiation - remission in 2014 6. Chronic narrowing of Esophageal structure - EGD with Dilation and biopsy on 09/10/17; the study revealed short segment of Barretts' Esophagus; The pt will have speech eval today before she will d/guru Complains of difficulty swallowing since this AM, has been able to eat today.; MAR reviewed *From cardiac standpoint, the pt is stable to d/c home once she passes the speech eval and remains SR. Instructed the pt to f/u with Dr Baker' office within 2-4wks for Afib eval with ECG. However, she stated she would like to f/u and HR check with ECG at [facility]. Review of Systems - Review of Systems Constitutional: reports: no symptoms reported EENTM: reports: no symptoms reported Respiratory: reports: no symptoms reported Cardiac (ROS): reports: no symptoms reported ABD/GI: reports: no symptoms reported : reports: no symptoms reported Musculoskeletal: reports: no symptoms reported Skin: reports: no symptoms reported Neurological: reports: no symptoms reported <Janine Baker - Last Filed: 09/14/17 14:58> Cardiology Progress Note - Objective Vital Signs Temp Pulse Resp BP BP BP Pulse Ox 09/14/17 14:35 89 16 09/14/17 12:45 95 152/69 H 09/14/17 11:25 98.3 F 97 18 152/69 H 98 09/14/17 08:15 99 F 99 18 94 L 09/14/17 08:14 133/107 H 09/14/17 07:20 99 F 99 18 133/107 H 94 L 09/14/17 04:00 98.6 F 94 18 142/67 H 97 Admit Weight 156 lb 4.8 oz Weight 142 lb 12.8 oz 09/13/17 09/14/17 09/15/17 06:59 06:59 06:59 Intake Total 500 240 Balance 500 240 - Labs Result Diagrams: 09/13/17 04:52 09/13/17 04:51 Troponin/CKMB Troponin I 0.012 ng/mL (< 0.028) 09/08/17 13:02 - Assessment/Plan Pt. seen and eval. by me. I agree with the A|P by the HOSPICE CARE CONSULTANT. She is stable to be d/ c'd. She should f/u in the office in 1-2 months. Return to the ER if the HR becomes rapid again."
[2017-09-14] MEDS: Albuterol Sulfate 2.5 mg/3 ml Neb NEB PRN (14:35)
[2017-09-14 16:29] VITALS: BP 133/64; TEMP 98.4
--- NOTE | 2017-09-14 22:11 | DIS ---
DATE OF ADMISSION: 09/07/2017 DATE OF DISCHARGE: 09/14/2017 PRIMARY CARE PROVIDER: Cami Srinivasan NP DISCHARGE DIAGNOSES: 1. Community acquired right lower lobe pneumonia. 2. Atrial fibrillation. 3. 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 4. Smooth stricture in the distal third of esophagus on EGD, which was dilated, biopsy report showin g unremarkable squamocardiac junctional mucosa, without any Acuña's lesion identified. 5. Thoracentesis, pathology report on pleural fluid did not reveal any malignant cells. CONSULTATIONS DURING THIS HOSPITALIZATION: Pulmonology, Dr. Dawn; Gastroenterology, Dr. Mar; Car diology, Dr. Baker; and Oncology, Dr. Juarez. CONDITION OF PATIENT AT THE TIME OF DISCHARGE: Stable. I assessed Ms. Kirkpatrick on the day of discha rge. She denies any chest pain or shortness of breath. Vital signs are stable. S1 and S2 are heard , regular. Lungs are clear to auscultation bilaterally. DISCHARGE MEDICATIONS: Ventolin nebulizer q. 4 hours as needed, Cardizem-CD 240 mg daily, Levofloxac in 750 mg daily for 3 more days, and lisinopril 10 mg 2 times a day. INVESTIGATIONS DURING THIS HOSPITALIZATION: 1. A 2D echocardiogram on 09/07/2017, showing left ventricular ejection fraction estimated at 55% to 60% and normal right ventricular size and function. 2. Right-sided pleural drainage with catheter insertion under ultrasound guidance on 09/08/2017. 3. CT scan of the chest on 09/09/2017, which showed worsening opacification of right hemithorax as w ell as worsening soft tissue density in the right subcarinal region extending into the right infrahil ar region. 4. MRI of the brain on 09/13/2017, which did not reveal any intracranial metastases. 5. Bone scan on 09/13/2017, which did not reveal any scintigraphic evidence to confirm osseous metas tatic disease. She had degenerative activity, most notable at the left knee. HOSPITAL COURSE: Ms. Kirkpatrick is a pleasant 61-year-old lady who was admitted to [facility] on 09/07/2017 for community-acquired pneumonia as well as a pleural effusion. She und erwent thoracentesis. She was treated with intravenous antibiotics, subsequently stepped down to ora l antibiotics. She was seen by Pulmonology Service. She was also seen by Oncology Service because o f concern over recurrent malignancy. Gastroenterology also saw her for dysphagia to foods. She was found to have an esophageal stricture and underwent dilatation. She continued to improve clinically. She will follow up with Oncology and Pulmonology Services as outpatient. She has been started on calcium channel scott for atrial fibrillation. On 09/13/2017, she had white count 8500, hemoglobin 9.6, and platelet count 339,000. Sodium 139, pot assium 3.5, and creatinine 0.77. She had decreased TSH of 0.1029 and decreased free T3 of 1.50, but normal free T4 of 1.24. She will need her thyroid function tests checked in 4-6 weeks. Many thanks for allowing me to participate in your patient's care. Please feel free to contact me wi th any questions or concerns. DISCHARGE DESTINATION: Home. TOTAL AMOUNT OF TIME SPENT COORDINATING THIS DISCHARGE: 33 minutes.
--- NOTE | 2017-09-16 14:56 | EKG ---
Test Reason : RHYTHM CHANGE Blood Pressure : / mmHG Vent. Rate : 201 BPM Atrial Rate : 202 BPM P-R Int : 000 ms QRS Dur : 162 ms QT Int : 216 ms P-R-T Axes : 000 037 206 degrees QTc Int : 395 ms Wide QRS tachycardia Non-specific intra-ventricular conduction block Abnormal ECG When compared with ECG of 03-JUL-2016 15:26, Wide QRS tachycardia has replaced Sinus rhythm Vent. rate has increased BY 115 BPM Confirmed by WENDY MURPHY (2) on 09/16/2017 2:56:20 PM Referred By: INDERJIT Confirmed By:WENDY MURPHY
== END 2017-09-14 16:41 | disposition home or self-care (01) | DRG 193 ==
LOC: ERS 14:28 → IMCU/EMU 16:54 → ONC 09-11 17:16 → 2SE 09-13 00:37
PROVIDERS: ADMIT Family Medicine; ATTEND Family Medicine
PROC: 0W9930Z Drainage of Right Pleural Cavity with Drainage Device, Percutaneous Approach (ICD-10-PCS; 2017-09-08)
PROC: 0D738ZZ Dilation of Lower Esophagus, Via Natural or Artificial Opening Endoscopic (ICD-10-PCS; principal; 2017-09-10)
PROC: 0DB38ZX Excision of Lower Esophagus, Via Natural or Artificial Opening Endoscopic, Diagnostic (ICD-10-PCS; 2017-09-10)
PROC: 3E0G8GC Introduction of Other Therapeutic Substance into Upper GI, Via Natural or Artificial Opening Endoscopic (ICD-10-PCS; 2017-09-10)
DX: J18.9 Pneumonia, unspecified organism (principal); J96.01 Acute respiratory failure with hypoxia; J90 Pleural effusion, not elsewhere classified; K22.2 Esophageal obstruction; I08.3 Combined rheumatic disorders of mitral, aortic and tricuspid valves; J44.0 Chronic obstructive pulmonary disease with (acute) lower respiratory infection; C34.01 Malignant neoplasm of right main bronchus; R13.12 Dysphagia, oropharyngeal phase; J45.909 Unspecified asthma, uncomplicated; D64.9 Anemia, unspecified; K44.9 Diaphragmatic hernia without obstruction or gangrene; Z85.118 Personal history of other malignant neoplasm of bronchus and lung; Z92.21 Personal history of antineoplastic chemotherapy; Z88.1 Allergy status to other antibiotic agents; Z92.3 Personal history of irradiation; R59.1 Generalized enlarged lymph nodes; F41.9 Anxiety disorder, unspecified; I12.9 Hypertensive chronic kidney disease with stage 1 through stage 4 chronic kidney disease, or unspecified chronic kidney disease; N18.2 Chronic kidney disease, stage 2 (mild); Z87.891 Personal history of nicotine dependence; E03.9 Hypothyroidism, unspecified; I48.0 Paroxysmal atrial fibrillation
CPT/HCPCS: 32555; 36415; 70553; 71010; 71260; 78306; 80048; 80053; 82274; 82607; 82728; 82746; 82945; 83540; 83550; 83605; 83615; 83735; 83880; 83986; 84157; 84439; 84443; 84481; 84484; 85007; 85025; 85027; 85060; 87040; 87070; 87116; 87205; 87206; 88112; 88305; 88312; 88313; 89051; 93005; 93010; 93306; 94640; 94660; 96365; 96375; A9503; A9579; C9113; G8978-GP-CJ; G8979-GP-CJ; G8980-GP-CJ; G8996-GN-CI; G8997-GN-CH; J0456; J1956; J2001; J2405; J2704; J2930; J3301; J7050; J7611; J7620; Q0162

== ENCOUNTER 2017-09-29 12:25 | Emergency (ER) | payer OTHER, SELFPAY ==
--- NOTE | 2017-09-29 13:40 | RAD ---
CHEST 2 VIEWS: HISTORY: Cough. COMPARISON: 03/18/15 study. FINDINGS: There is a right-sided pleural effusion present. There is increased density which obscures the right heart border raising the possibility that there are some atelectatic lung changes in the right base. Some of this density may be related to loculated effusion. A chest CT may be helpful in better ass essment of these findings. The left lung is clear. IMPRESSION: Right-sided pleural effusion with somewhat unusual appearance of what is either some atelectatic araiza ge in the right lung base or possibly loculated effusion. CT would be helpful in assessment. POS: ANDERS
--- NOTE | 2017-09-29 14:38 | RAD ---
AP PELVIS: HISTORY: Pelvic pain. Fall with pain to the sacral region. FINDINGS: The bones appear slightly demineralized. The pelvic ring appears intact without evidence of fracture . SI joints are symmetric. There are arthritic changes of the lower lumbar spine. IMPRESSION: No acute injury. If there is a high clinical index or suspicion of fracture, CT is recommended. POS: [facility]
== END 2017-09-29 14:18 | disposition home or self-care (01) ==
LOC: ERS 12:25
DX: S30.0XXA Contusion of lower back and pelvis, initial encounter (principal); I10 Essential (primary) hypertension; Z87.891 Personal history of nicotine dependence; Z79.899 Other long term (current) drug therapy; W01.190A Fall on same level from slipping, tripping and stumbling with subsequent striking against furniture, initial encounter
CPT/HCPCS: 71020; 72170

== ENCOUNTER 2017-10-08 05:39 | Inpatient (IN) | payer OTHER, SELFPAY ==
[2017-10-08 06:23] LABS: Hematocrit 36.1 % (36.0-47.0); Mean Platelet Volume 7.3 fL (7.4-10.4); Red Blood Cell (RBC) Count 4.12 mill/uL (4.20-5.40)
[2017-10-08 06:39] LABS: ALT (SGPT) 39 U/L (8-55); AST (SGOT) 31 U/L (5-34); Alkaline Phosphatase 240 U/L (40-150); Anion Gap 19 mmol/L (10-20); BUN (Urea Nitrogen) 63 mg/dL (9.8-20.1); Bilirubin, Total 1.7 mg/dL (0.2-1.2); CK (CPK) 21 U/L (29-168); Calc. Creatinine Clearance 0 mL/min (70-130); Calcium 9.7 mg/dL (7.8-10.44); Carbon Dioxide 21 mmol/L (23-31); Chloride 95 mmol/L (98-107); Estimated GFR-MDRD 20; Globulin 4.4 g/dL (2.4-3.5); Protein, Total 7.3 g/dL (6.0-8.3)
[2017-10-08 06:43] LABS: Troponin I 0.014 ng/mL (< 0.028)
[2017-10-08 06:46] LABS: Band 12 % (5-11); Neutrophil 83 % (42-75); Toxic Granulation SLIGHT; Vacuoles SLIGHT
[2017-10-08] MEDS ORDERED: Vancomycin HCl 1 GM in Premix Bag 1 BAG IVPB SCH ×2 (07:00→09:00)
[2017-10-08] MEDS ORDERED: Diltiazem 125 MG/25 ML ONE (07:04)
[2017-10-08] MEDS ORDERED: Diltiazem 125 MG in Sodium Chloride 0.9% 100 ML IVPB SCH ×2 (07:15→07:57)
[2017-10-08] MEDS ORDERED: Eucerin (Mineral Oil/Petrolatum,White) 30 gm Jar TOP PRN (07:57)
[2017-10-08] MEDS ORDERED: Senokot 8.6 MG TAB PO PRN (07:57)
[2017-10-08] MEDS ORDERED: Chloraseptic Spray 180 ml Bottle PO PRN (07:57)
[2017-10-08] MEDS ORDERED: Diabetic Tussin 200 MG/10 ML UDCUP PO PRN (07:57)
[2017-10-08] MEDS ORDERED: Ondansetron ODT 4 MG TAB PO PRN (07:57)
[2017-10-08] MEDS ORDERED: Artificial Tears 18 DROP/0.9 ML EA EYE PRN (07:57)
[2017-10-08] MEDS ORDERED: Milk Of Magnesia 30 ML UDCUP PO PRN (07:57)
[2017-10-08] MEDS ORDERED: Loperamide HCl 2 MG CAP PO PRN (07:57)
[2017-10-08] MEDS ORDERED: hydrALAZINE 20 MG/ML VIAL SLOW IVP PRN (07:57)
[2017-10-08] MEDS ORDERED: Sodium Chloride 0.65% Nasal 44 ML BOT EA NARE PRN (07:57)
[2017-10-08] MEDS ORDERED: Loratadine 10 MG TAB PO PRN (07:57)
[2017-10-08] MEDS ORDERED: Mag-Al 1200 mg/1200 mg/30 ML UDCUP PO PRN (07:57)
[2017-10-08] MEDS ORDERED: Benzonatate 100 MG CAP PO PRN (07:57)
[2017-10-08] MEDS ORDERED: Ondansetron HCl/PF 4 MG/2 ML Vial IVP PRN (07:57)
[2017-10-08] MEDS ORDERED: Acetaminophen 325 MG TAB PO PRN (07:57)
[2017-10-08] MEDS ORDERED: Piperacillin/Tazobactam 4.5 GM in Sodium Chloride 0.9% 100 ML IVPB SCH (08:00)
--- NOTE | 2017-10-08 08:05 | RAD ---
SINGLE VIEW OF THE CHEST: COMPARISON: 09/07/17. HISTORY: Foul-smelling cough and fever that began yesterday. FINDINGS: A single view of the hest shows a normal-size cardiomediastinal silhouette. There is an infiltrate i n the right lower lobe with an adjacent pleural effusion. This is unchanged compared to the prior ex am. IMPRESSION: Right lower lobe infiltrate with adjacent pleural effusion. POS: [facility]
[2017-10-08] MEDS ORDERED: Digoxin 0.5 MG/2 ML AMP SLOW IVP SCH (08:15)
[2017-10-08 09:24] LABS: Troponin I 0.013 ng/mL (< 0.028)
[2017-10-08] MEDS ORDERED: Norepinephrine 8 MG/0.9% NS 250 ML ONE (11:03)
--- NOTE | 2017-10-08 11:20 | HP ---
PRIMARY CARE PHYSICIAN: Cami Srinivasan, Family Nurse Practitioner. REASON FOR ADMISSION: Sepsis with acute organ dysfunction, acute hypoxic respiratory failure, right lower lobe pneumonia with effusion, atrial fibrillation with rapid ventricular response. HISTORY OF PRESENT ILLNESS: A 62-year-old female with a history of lung cancer , status post chemotherapy in 2014, who came to emergency room with complaint of increasing shortness of breath, cough productive of brownish sputum and feeling generalized weak. This patient was recently admitted in our hospital on 09/07/2017. At that time , she had exactly similar symptoms and she was treated for community-acquired right lower lobe pneumonia. At that time, she also had new onset of atrial fibrillation. During that admission Cardiology and Pulmonary group was consulted. The patient had CT chest which suspected postobstructive pneumonia. She was also complaining of dysphagia and that is why head greenskeeper did upper endoscopy and biopsy was obtained. Subsequently pathology report came back negative for any malignancy. She also had thoracentesis and pleural fluid was also negative for any malignancy. Bone scan and MRI was done to rule out any metastases that was negative. This patient was not able to get outpatient PET scan because of no insurance. She was discharged home on 09/14/2017 with p.o. levofloxacin. Patient has finished antibiotic therapy. She was given Cardizem CD for atrial fibrillation. Patient reports that after discharge from the hospital, she did not feel any better. She was having continuous ongoing symptoms. She required another Emergency Room visit on 09/29/2017. At that time, she had episode of fall and she was having cough productive of sputum. At that time, patient did not require admission in hospital. She was given only tramadol for pain and discharged from ER. Since then patient is becoming downhill. She is becoming more and more tachypneic. Even after a little exertion, she gets of out of breath. She became more sick last night. 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 She was having foul smelling cough and she was feeling exhausted and weak and she was also having palpitations and that is why this morning paramedics were called and patient was brought to the emergency room. ALLERGIES: BACTRIM. CURRENT HOME MEDICATIONS: The patient was discharged on following medications: Cardizem CD 240 mg p.o. daily, lisinopril 10 mg p.o. b.i.d., Ventolin nebulization q.4 hourly. REVIEW OF SYSTEMS: The following complete review of systems was negative, unless otherwise mentioned in the HPI or below: Constitutional: Weight loss or gain, ability to conduct usual activities. Skin: Rash, itching. Eyes: Double vision, pain. ENT/Mouth: Nose bleeding, neck stiffness, pain, tenderness. Cardiovascular: Palpitations, dyspnea on exertion, orthopnea. Respiratory: Shortness of breath, wheezing, cough, hemoptysis, fever or night sweats. Gastrointestinal: Poor appetite, abdominal pain, heartburn, nausea, vomiting, constipation, or diarrhea. Genitourinary: Urgency, frequency, dysuria, nocturia. Musculoskeletal: Pain, swelling. Neurologic/Psychiatric: Anxiety, depression. Allergy/Immunologic: Skin rash, bleeding tendency. Please see my HPI for pertinent positives and negatives. All other review of systems reviewed and negative except as mentioned in the HPI. PAST MEDICAL HISTORY: Hypertension, chronic kidney disease stage II, history of empyema of right lower lung, history of dysphagia status post recent upper endoscopy, history of lung cancer status post chemotherapy in 2015, hypertension , recent admission for pneumonia. PAST SURGICAL HISTORY: Hysterectomy, MediPort placement and subsequent removal , upper endoscopy during previous admission. PAST PSYCHIATRIC HISTORY: Reviewed and negative. FAMILY HISTORY: Mother of complications of coronary artery disease by age of 42. No strong family history of cancer or CVA. SOCIAL HISTORY: Patient is . She has a remote history of smoking, but quit smoking in 2014. No current history of smoking, alcohol or other illicit drug abuse. 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 EMERGENCY ROOM COURSE: Patient is given DuoNeb therapy, Cardizem bolus and Cardizem drip was started. Vancomycin and Zosyn is given. IV fluid given. PHYSICAL EXAMINATION: VITAL SIGNS: In the emergency room, lowest blood pressure is 109/66, pulse 168 and irregular, respiratory rate 39, temperature 97.6, and saturation 87% on room air. GENERAL: The patient appears sick, in respiratory distress. HEAD: Normocephalic, atraumatic. EYES: Pupils round, reactive to light. Extraocular muscles intact. ENT: Oropharynx within normal limits. Moist mucous membranes. No oral lesions. No pharyngeal erythema. NECK: Gurgling sounds heard from the throat. No JVD, no thyromegaly, no meningeal signs of irritation. LUNGS: Bilateral rhonchi and wheezing heard. More rales on the right lower lobe. Patient also tachypneic and shows use of accessory muscles of respiration. CARDIAC: S1 and S2, irregularly irregular. No murmur elicited, no gallop, no rub. ABDOMEN: Soft, bowel sounds present, nontender, nondistended. No organomegaly , no mass, no suprapubic tenderness. BACK: Examination unremarkable, no CVA tenderness. EXTREMITIES: Upper extremity; passive movement of all joints are normal. Lower extremities: No edema. Good peripheral pulsation. SKIN: No skin rash. HEMATOLOGICAL SYSTEM: No lymphadenopathy. PSYCHIATRIC: Normal affect. IMAGING AND SIGNIFICANT LABORATORY DATA: 1. EKG showing atrial fibrillation with RVR, nonspecific ST-T changes. Chest x -ray showing right lower lobe pneumonia with adjacent pleural effusion. 2. CBC: WBC 39.0, hemoglobin 11.0, platelet 580 with bandemia. 3. BMP: Sodium 131, potassium 4.1, chloride 95, carbon dioxide 21, anion gap 19, BUN 63, creatinine 2.45, glucose 109, calcium 9.7, lactic acid 2.3. 4. LFT: Bilirubin 1.7, AST 31, ALT 39, alkaline phosphatase 240, albumin 2.9. 5. CK 21, CK-MB 2.4, troponin I 0.014. BNP 485.4. Repeat cardiac enzymes 0.013. Cortisol level 51.4. ASSESSMENT AND PLAN/IMPRESSION: 1. Acute hypoxic respiratory failure. This patient is in respiratory distress. She was not able to maintain her oxygen saturation with the nasal cannula, required facemask and patient was becoming more tired and that is why we initiated Vision bilevel positive airway pressure. At this point, I spoke with the patient that she is at risk for intubation and this was also discussed with the patient and patient's daughter on the phone. Patient also wanted to keep herself FULL CODE if needed, she is okay with intubation. I spoke with Dr. Samayoa and consulted him for management. At this point, in the emergency room , patient is stable with bilevel positive airway pressure, but we will closely monitor in IMCU. 2. Sepsis with acute organ dysfunction. This patient has acute kidney failure , acute respiratory failure, abnormal LFT, and she has atrial fibrillation with rapid ventricular response as well as she also has part of congestion. Source of infection is likely pneumonia with parapneumonic effusion. The patient is on broad spectrum antibiotic therapy with vancomycin and Zosyn. We will follow up on culture result. We will also send stool for C. diff given recent antibiotic exposure and we will also check urinalysis and urine culture. 3. Acute kidney failure, likely due to prerenal etiology, underlying sepsis. Patient will be given IV fluid at slow rate and we will watch for any fluid overload status. We will continue with underlying sepsis treatment and we will avoid nephrotoxic agent. We will hold on lisinopril therapy and we will repeat BMP tomorrow. We will check urinalysis, urine sodium, creatinine and ultrasound kidney. If renal function does not improve, then we will consider Nephrology evaluation as well. We will give her all medication renally adjusted dose. 4. Lactic acidosis and metabolic acidosis due to renal failure and sepsis. We will repeat lactic acid level again tomorrow. 5. Atrial fibrillation with rapid ventricular response. At this point, we are starting Cardizem drip for rate control. We will also give a dose of digoxin. If it does not control, then she may need another medication like amiodarone, but we will consult Cardiology for that. The patient is not a good candidate for long-term anticoagulation, but that will defer to Cardiology as well. The patient already had echocardiography during previous admission, so no need of repeating echocardiography, but we will do serial cardiac enzymes. Cardiology will be consulted as well. 6. Elevated BNP, likely due to diastolic dysfunction from atrial fibrillation. We will watch for any fluid overload status. 7. Hyponatremia likely due to chronic lung disease and partly due to syndrome of inappropriate antidiuretic hormone secretion. We will sent urine sodium, creatinine, osmolality and plasma osmolality. 8. Hypertension. Currently, patient's blood pressure runs low and she is on Cardizem drip and that is why we will hold on antihypertensive medication. 9. History of lung cancer. At this point, patient needs to be followed as an outpatient basis with Oncology and she needs to get PET scan if needed. 10. Pneumonia, right lower lobe with parapneumonic effusion and suspected for postobstructive pneumonia. This patient has very foul smelling sputum, suspecting from anaerobic infection. We will continue with vancomycin and Zosyn. Patient may benefit from bronchoscopy and that will defer to Pulmonary group. 11. Deep venous thrombosis prophylaxis, heparin 5000 units subcu twice daily. 12. Gastrointestinal prophylaxis. Pepcid 20 mg IV daily. 13. Code status: The patient is FULL CODE. This was confirmed with the patient and patient's daughter. Disposition plan based on clinical course. We are expecting patient's stay in hospital more than 2 midnights. Plan of care discussed with the patient and patient's daughter on phone. ADDITIONAL HOSPITAL COURSE: PT CONVERTED TO NSR, SO CARDIZEM DRIP DCED PT HAD LOW BP, PT CODED IN ER SO REQUIRED INTUBATION AND BP DROPPED SO REQUIRED LEVOPHED DRIP, PT IS NOW REQUIRING CCU ADMISSION Total time spent providing critical care to this patient is more than 30 minutes in the emergency room. MTDD
[2017-10-08 11:34] LABS: Sodium 134 mmol/L (135-148)
[2017-10-08 11:35] LABS: Modified Allen's Test POSITIVE; Vent NO
[2017-10-08] MEDS ORDERED: Propofol 1,000 MG/100 ML VIAL IV ONE (12:03)
[2017-10-08 12:29] LABS: Oxyhemoglobin 97.8 % (94.0-97.0); Sodium 136 mmol/L (135-148)
[2017-10-08 12:30] LABS: Mechanical Tidal Volume 450 ml; Mode SIMV/PS; Modified Allen's Test POSITIVE; Pressure Support 10 cmH2O; Vent YES
[2017-10-08] MEDS ORDERED: Sedation Protocol FS ONE (13:07)
[2017-10-08] MEDS ORDERED: Lorazepam 2 MG/ML VIAL SLOW IVP PRN (13:21)
[2017-10-08] MEDS ORDERED: Midazolam HCl 2 mg/2 ml Vial ONE (13:28)
--- NOTE | 2017-10-08 13:30 | RAD ---
PORTABLE SUPINE FRONTAL CHEST RADIOGRAPH: DATE: 10/08/17 at 12:16 p.m. COMPARISON: 10/08/16 at 6:03 a.m. HISTORY: Evaluate chest following placement of endotracheal tube and nasogastric tube. FINDINGS: There is new airspace disease in the left perihilar region. There are developing reticulonodular den sities within the left base as well. New endotracheal tube and nasogastric tube present in proper po sition. A paddle obscures portions of the right lung base. There is dense pleural and parenchymal o pacity within the right lung base, unchanged. IMPRESSION: Lines and tubes as above. New airspace disease in the left perihilar region and left lung base may s ignify developing edema and/or infectious pneumonitis/aspiration. Stable dense pleural and parenchym al opacity noted within the right lung base, nonspecific. POS: [facility]
[2017-10-08 14:28] LABS: Troponin I 0.078 ng/mL (< 0.028)
--- NOTE | 2017-10-08 15:51 | CON ---
DATE OF CONSULTATION 10/08/2017 INDICATION FOR CONSULTATION: A 62-year-old female with atrial fibrillation and rapid ventricular res ponse. HISTORY OF PRESENT ILLNESS: This is a very unfortunate female with a history of lung cancer who has had problems with respiratory problems in the past. She recently was in the hospital back in July was similar type symptoms which she becomes very short of breath. She again presented to the hospit al with complaining of shortness of breath and a BiPAP was applied, but still continued to have tachy pnea and then she required intubation. She is presently in the emergency room and intubated. We jose farmer asked to see her due to her atrial fibrillation with rapid ventricular response. At her last visit , I think she actually converted back to sinus rhythm. On this admission also, she was in atrial fib rillation with rapid ventricular response, was placed on IV diltiazem and then she became very hypote nsive, appears that she is actually septic. In the interim since before I have seen her, she can go self converted back to a sinus rhythm and this is similar to what she did on her last visit. Otherwi se, she is intubated but is awake and obviously cannot give any history other than what I have notice d in the history of present illness and unable to get any review of systems except for some nodding o f the head. She does appear to be comfortable. She has no complaints at this time from what I can d etermine. PAST MEDICAL HISTORY: Significant for lung cancer with pleural effusions. Otherwise, she has been d oing relatively well. She also had history of hypertension, atrial fibrillation and some history of asthma. She has had a history of hysterectomy. She had a MediPort, which was placed and then remove d. ALLERGIES: She is allergic to SULFAMETHOXAZOLE and TRIMETHOPRIM. MEDICATIONS: Her medications prior to admission included lisinopril, Ventolin nebulizer treatments. I believe she was on p.o. diltiazem prior to being admitted to the hospital at this time and lisinop ril. FAMILY HISTORY: Noncontributory. She has been placed on IV antibiotics also. SOCIAL HISTORY: She has a history of tobacco abuse in the past. I believe she stopped smoking. She has no alcohol or tobacco abuse at this time. She has children. She lives alone. She has had one child, apparently with breast cancer. PHYSICAL EXAMINATION: GENERAL: Reveals an ill-appearing female with a somewhat foul odor, uncertain where this is from, wh ether is from the pulmonary aspect, but a very foul smelling odor and she is intubated, but awake. VITAL SIGNS: Her blood pressure is 104/54, respiratory rate 18 on the ventilator, heart rate 90. HEENT: Shows the head to be normocephalic, atraumatic. It is difficult to hear any carotid noises, no bruits obvious. Pulses are present. CHEST: Diffuse coarse rhonchi bilaterally. CARDIOVASCULAR: At this time reveals a regular rate and rhythm. ABDOMEN: Soft and nontender. Bowel sounds are present. EXTREMITIES: Showed no clubbing, cyanosis or edema at this time. Pedal pulses are difficult to palp ate. NEUROLOGIC: I did not see any significant focal motor deficits. SKIN: Warm and dry at this time. LABORATORY DATA: Her laboratory data shows a white blood cell count of 39,000 with 12% bands, hemogl obin is 11, hematocrit is 36, and platelet count is 580. Her potassium is 4.1. Her creatinine is 2. 45 with a BUN of 63. Lactic acid is 2.3. Her BNP is 485. Cardiac enzymes are unremarkable except f or the last one which was done at 1342 this afternoon and was found to be 0.078. The three sets prio r to that were unremarkable. Her ABGs show evidence of acidosis, but appears to be respiratory as we ll as metabolic, but appear to be mainly respiratory earlier today. Her EKG earlier showed atrial fi brillation with rapid ventricular response. At this time, the monitor showing sinus rhythm. The IV diltiazem has been held due to bradycardia. Her other medicines include Zosyn as well as vancomycin. She has been given Remeron, Diprivan for intubation. She continues on some low dose of propofol. She is also on Levophed. IMPRESSION: 1. Respiratory failure requiring intubation due to possible pneumonia with lower respiratory tract i nfection. 2. Atrial fibrillation with rapid ventricular response. She has converted back to sinus rhythm with continued monitored very carefully. I can always add digoxin if we need this for rate control. It would be somewhat hesitant to restart diltiazem with hypotension once I suspect the atrial fibrillati on is due to the underlying infection and pulmonary problems. Once this was corrected, then hopefull y this will stabilize as she did last time. 3. History of lung cancer. This will be dealt with by the oncologist and on her previous admission, there was no indication that she had recurrence. 4. What appears to be acute renal failure with most likely dehydration. She will be hydrated and th en further laboratory data will determine whether or not this is acute, then may become chronic, most likely is due to her sepsis and dehydration. 5. Hypertension, which is under good control at this time. 6. Most likely pneumonia, appears to have a right lower lobe pneumonia and with associated foul smel ling odor which most likely is coming from the respiratory aspect, will be more than happy to continu e to follow the patient with you, but at this time from a cardiac standpoint other than sepsis and hy potension, she has converted back to sinus rhythm and hopefully will maintain sinus rhythm. If not, I could start low dose beta blockers or low dose diltiazem for rate control and even digoxin if marco rose.
[2017-10-08] MEDS: Sodium Chloride 0.9% 1,000 ML IV SCH ×2 (15:58→18:34)
[2017-10-08] MEDS: Famotidine/PF 20 mg/2ml Vial SLOW IVP SCH (16:32)
[2017-10-08] MEDS: Heparin 5,000 UNITS/ML VIAL SC SCH ×2 (16:33→22:15)
[2017-10-08] MEDS: Saccharomyces boulardii 250 MG CAP PO SCH (16:33)
[2017-10-08] MEDS: Piperacillin/Tazobactam 3.375 GM in Sodium Chloride 0.9% 100 ML IVPB SCH ×2 (16:34→22:17)
[2017-10-08] MEDS ORDERED: Sodium Bicarb 50 MEQ/50 ML Abboject 8.4% SYRINGE ONE ×2 (17:20→19:45)
[2017-10-08] MEDS ORDERED: EPINEPHrine 1 MG/10 ML Abboject SYRINGE ONE ×2 (17:20→19:45)
[2017-10-08 20:01] LABS: Oxyhemoglobin 87.1 % (94.0-97.0); Sodium 139 mmol/L (135-148)
[2017-10-08 20:04] LABS: Modified Allen's Test NOT DONE; Vent YES
[2017-10-08 20:05] LABS: Mechanical Tidal Volume 450 ml; Mode SIMV; Pressure Support 10 cmH2O
--- NOTE | 2017-10-08 20:05 | ULT ---
BILATERAL RENAL ULTRASOUND: History: Acute renal insufficiency. Technique: Multiple longitudinal and transverse images of the kidneys and bladder obtained using a mu ltihertz curvilinear transducer. Real-time images are obtained. FINDINGS: The bladder is not adequately visualized due to an indwelling Pickering catheter. Both kidneys are visualized. Right kidney measures 9.0 and the left kidney 11.4 cm from pole to pole. No evidence of hydroureteronephrosis is seen. A small cortical cyst measuring approximately 1.9 x 1. 1 cm seen in the midpole of the right kidney. IMPRESSION: Small right renal cortical cyst. Otherwise, unremarkable renal ultrasound. POS: [facility]
[2017-10-08] MEDS ORDERED: EPINEPHrine 1 MG, Admixture Fee 1 EACH in Dextrose 5% in Water 250 ML IVPB SCH ×3 (20:15)
--- NOTE | 2017-10-08 20:32 | RAD ---
AP CHEST: Date: 10-08-17 Comparison: 10-08-17 History: Endotracheal tube placement. FINDINGS: AP chest demonstrates nasogastric and endotracheal tubes to be in good position. There is interval de velopment of a moderate to large right sided pneumothorax which was not present on the patient's prev ious radiograph from earlier in the day. There also appears to be extensive right central cavitary an d opacification changes in the right hilar region. IMPRESSION: Interval development of a moderate to large right sided pneumothorax. Findings discussed with Dr. Fuentes at 8:09 p.m. on 10-08-17. Code CR. POS: [facility]
[2017-10-08] MEDS ORDERED: Lidocaine 1% (PF) 30 ML VIAL ONE (20:50)
[2017-10-08 21:03] LABS: Troponin I 0.201 ng/mL (< 0.028)
--- NOTE | 2017-10-08 21:19 | PDOC.EVN ---
Event Note - Event Note Event Note: Yadi locke called at 193. On arrival CPR in progress for PEA. Epi X 2, Bicarb given, see clode flow sheet. Pulse returned. AbG with pH 7.1, CO2 59, PO2 77, HCO3 15. after about 30 minutes, code ended. Review of CXR showed PTX, no right sided breath sounds. CT surgery (Dr Farrell) called to place chest tube, anesthesia called for arterial line, but at 2014, yadi locke called again for return of PEA. Emergent chest thoracotomy performed. area cleaned with betadyne and a 16g angiocath inserted to 3rd intercostal space, midclavicular line with immediate improvement in SpO2. BP stabilized, epi drip added, bicarb drip ordered. at 2039, Ct surgery arrived and place a large bore CT to pler- Evac. Pt stabilized. Total of 100 minutes of critical care time performed at the bedside, in addition to thoracotomy catheter placement
[2017-10-08 21:44] LABS: Anion Gap 19 mmol/L (10-20); BUN (Urea Nitrogen) 59 mg/dL (9.8-20.1); Calc. Creatinine Clearance 21 mL/min (70-130); Calcium 7.4 mg/dL (7.8-10.44); Carbon Dioxide 18 mmol/L (23-31); Chloride 106 mmol/L (98-107); Estimated GFR-MDRD 17; Magnesium 2.2 mg/dL (1.6-2.6)
[2017-10-08] MEDS: Sodium Bicarbonate 150 MEQ in Sodium Chloride 0.9% 1,000 ML IV SCH (21:44)
[2017-10-08] MEDS: EPINEPHrine 4 MG in Dextrose 5% in Water 250 ML IVP SCH ×2 (21:46)
[2017-10-08 21:53] LABS: Hematocrit 28.5 % (36.0-47.0); Mean Platelet Volume 7.2 fL (7.4-10.4); Red Blood Cell (RBC) Count 3.12 mill/uL (4.20-5.40); White Blood Cell (WBC) Count 26.9 thou/uL (4.8-10.8)
[2017-10-08 21:58] LABS: Band 27 % (5-11); Myelocyte 2 % (0-0); Neutrophil 56 % (42-75)
--- NOTE | 2017-10-08 22:13 | RAD ---
AP CHEST: Date: 10-08-17 Time: 9:01 p.m. FINDINGS: Endotracheal and nasogastric tube in place. There has been placement of a right sided chest tube. Pre viously visualized right sided pneumothorax has for the most part resolved. IMPRESSION: Interval placement of right sided chest tube. POS: [facility]
--- NOTE | 2017-10-08 22:14 | RAD ---
TWO AP VIEWS OF THE CHEST: History: Right sided pneumothorax after pneumo DART placement. Date: 10-08-17 Time: 8:42 a.m. Comparison: 10-08-17 at 7:52 p.m. FINDINGS: AP chest demonstrates a nasogastric and endotracheal tube to be in place. There has been placement of a right sided small pneumocath on the right side. The right sided pneumothorax remains. IMPRESSION: Persistent right sided pneumothorax after DART placement. POS: [facility]
[2017-10-08] MEDS ORDERED: Piperacillin/Tazobactam 3.375 GM in Sodium Chloride 0.9% 100 ML IVPB SCH (22:15)
[2017-10-08 22:32] LABS: Oxyhemoglobin 79.8 % (94.0-97.0); Sodium 141 mmol/L (135-148)
[2017-10-08 22:34] LABS: Mechanical Tidal Volume 450 ml; Vent YES
[2017-10-08 22:35] LABS: Mode SIMV; Pressure Support 10 cmH2O
[2017-10-09] MEDS: Norepinephrine 8 MG/0.9% NS 250 ML IVPB PRN ×3 (00:03→15:55)
[2017-10-09] MEDS ORDERED: Lidocaine 1% (PF) 30 ML VIAL FS SCH (00:15)
[2017-10-09] MEDS ORDERED: Digoxin 0.5 MG/2 ML AMP ONE (01:59)
[2017-10-09] MEDS ORDERED: Digoxin 0.5 MG/2 ML AMP SLOW IVP SCH ×2 (02:15→12:30)
[2017-10-09] MEDS: EPINEPHrine 4 MG in Dextrose 5% in Water 250 ML IVP SCH ×2 (02:17)
[2017-10-09] MEDS ORDERED: Amiodarone HCl 450 MG, Admixture Fee 1 EACH in Dextrose 5% in Water 250 ML IVPB SCH ×3 (03:00)
[2017-10-09] MEDS ORDERED: Amiodarone HCl 150 MG, Admixture Fee 1 EACH in Dextrose 5% in Water 100 ML IVPB SCH ×3 (03:00)
[2017-10-09] MEDS: Piperacillin/Tazobactam 3.375 GM in Sodium Chloride 0.9% 100 ML IVPB SCH ×4 (03:49→21:42)
[2017-10-09] MEDS: Sodium Bicarbonate 150 MEQ in Sodium Chloride 0.9% 1,000 ML IV SCH (03:49)
--- NOTE | 2017-10-09 04:18 | CON ---
DATE OF CONSULTATION: 10/08/2017 HISTORY OF PRESENT ILLNESS: I was called urgently to see Ms. Kirkpatrick in the ICU. She is status pos t 3 codes, requiring CPR today. At her 7:00 chest x-ray, she had pneumothorax. In the interim befor e my arrival, she had coded again. A right needle decompression has been performed by Dr. Fuentes. T he patient on my arrival had a heart rate in the 90s and her blood pressure was in the 70s systolical ly. The right chest wall was prepped and draped in usual sterile fashion. A 32 Armenian chest tube wa s then inserted and secured with silk suture. Follow up chest x-ray shows re-expansion of the apex. There is still some basilar airspace, which should resolve with suction. There is an air leak with suction on the chest tube atrium. The remainder of her history has been well documented by the Hospi talist. ASSESSMENT AND PLAN: This unfortunate woman with a history of squamous cell carcinoma and pneumothor ax after multiple codes today. I feel her prognosis is grim. A chest tube atrium has been placed on suction.
[2017-10-09] MEDS: Digoxin 0.5 MG/2 ML AMP SLOW IVP SCH ×2 (05:12→09:37)
[2017-10-09 05:15] LABS: ALT (SGPT) 639 U/L (8-55); AST (SGOT) 2414 U/L (5-34); Alkaline Phosphatase 148 U/L (40-150); Anion Gap 21 mmol/L (10-20); BUN (Urea Nitrogen) 63 mg/dL (9.8-20.1); Bilirubin, Total 1.5 mg/dL (0.2-1.2); Calc. Creatinine Clearance 20 mL/min (70-130); Carbon Dioxide 18 mmol/L (23-31); Chloride 108 mmol/L (98-107); Estimated GFR-MDRD 16; Globulin 2.7 g/dL (2.4-3.5); Protein, Total 4.9 g/dL (6.0-8.3)
[2017-10-09 05:22] LABS: Anisocytosis SLIGHT = 6-15 cells (100X) (0-5/hpf); Band 19 % (5-11); Hematocrit 32.3 % (36.0-47.0); Mean Platelet Volume 7.3 fL (7.4-10.4); Metamyelocyte 3 % (0-0); Myelocyte 2 % (0-0); Neutrophil 73 % (42-75); Red Blood Cell (RBC) Count 3.59 mill/uL (4.20-5.40); White Blood Cell (WBC) Count 33.9 thou/uL (4.8-10.8)
--- NOTE | 2017-10-09 05:56 | CON ---
DATE OF CONSULTATION: 10/08/2017 HISTORY OF PRESENT ILLNESS: Ms. Jeniffer Kirkpatrick, who sees Dr. Dawn, was admitted to the hospital afte r she presented with shortness of breath. It was going on for almost 24 hours. She is recently here with pneumonia. She is coughing up some g rossly purulent sputum, foul smelling. X-ray showed right pleural effusion. Apparently, she was on BiPAP for a while, was taken off and the y retried to put the BiPAP because of severe hypoxemia. She went into cardiopulmonary arrest, had to be intubated, started on pressors, Levophed which she is now on 15 mcg. PAST MEDICAL HISTORY: Pertinent for bronchogenic carcinoma, status post bronchoscopy, right lung; hi story of chronic dysphagia; history of empyema, right lung; hypertension; and chronic renal failure. PAST SURGICAL HISTORY: Include MediPort access, bronchoscopy showing pleural effusion. remove d about a month ago. MEDICATIONS: Includes lisinopril 10, Levaquin, Cardizem 240, albuterol. REVIEW OF SYSTEMS: Unobtainable. PHYSICAL EXAMINATION: GENERAL: On the vent, she is awake and responsive. She is on Levophed 15 mcg. VITAL SIGNS: Blood pressure 100/90, O2 sat 98%, respirations 25. CHEST: Extensive rhonchi and crackles. CARDIAC: Sinus tachycardia. ABDOMEN: Distended, but soft. LABORATORY DATA: Her pO2 was 495, pCO2 of 54, pH 7.20, 450, rate of 18, 100%. BNP was 485. Troponi n was elevated. Chemistry profile shows creatinine is 2.4, BUN is 63, sodium 131, albumin is low at 2.4. White count 39,000, hemoglobin and hematocrit are 11 and 36, platelet count 482, 80 segs, 12 ba nds. ASSESSMENT: 1. Acute on chronic respiratory failure. 2. Marked leukocytosis. 3. Pneumonia, probably aspiration. 4. Right pleural effusion. 5. Bronchogenic carcinoma. 6. Hypertension. She was on vancomycin. Zosyn was initiated along with steroids and nebulizer sera tments. PLAN: She is hypotensive. Plasmanate is being initiated. Sputum is being cultured. Await input from cultures, deescalate antibiotics as tolerated. Forty-five minute critical care time.
[2017-10-09 07:28] LABS: Oxyhemoglobin 91.1 % (94.0-97.0); Sodium 144 mmol/L (135-148)
[2017-10-09 07:29] LABS: Mechanical Tidal Volume 450 ml; Mode SIMV.PSV; Modified Allen's Test NOT DONE; Pressure Support 10 cmH2O; Vent YES
--- NOTE | 2017-10-09 08:28 | RAD ---
AP CHEST: Indication: Post right sided chest tube placement. Comparison: 10-08-17 at 9:01 p.m. FINDINGS: Right sided chest tube is unchanged. Right apical and basilar pneumothorax is similar. Pneumoperitone um underlying the hemidiaphragm is unchanged. Bilateral perihilar airspace opacity suspicious for promise ma or pneumonia is similar appearing. Patient is intubated with a gastric catheter. Patient pad overl ies the left chest wall. IMPRESSION: 1. Stable right sided pneumothorax. Right sided chest tube. 2. Stable pneumoperitoneum underlying the hemidiaphragms. 3. Cardiomegaly and perihilar airspace opacity suspicious for CHF and edema. Pneumonia is not exclude d. 4. Findings were called to Riri, the patient's RN, 10-09-17 at 7:55 a.m. POS: RANI
[2017-10-09] MEDS ORDERED: Vancomycin HCl 1 GM in Premix Bag 1 BAG IVPB SCH (09:00)
[2017-10-09] MEDS ORDERED: Diprivan 20 ML ONE ×2 (09:07→11:34)
[2017-10-09] MEDS: Heparin 5,000 UNITS/ML VIAL SC SCH ×2 (09:28→21:42)
[2017-10-09] MEDS: Famotidine/PF 20 mg/2ml Vial SLOW IVP SCH (09:30)
--- NOTE | 2017-10-09 09:31 | PDOC.CTH ---
Cardiology Progress Note - Subjective The pt seen and examined. Post Codes x3 this AM. At this time, she denied CP or discomfort in her chest or other cardiac complaints. She answers questions with nodding or shaking her head and able to follow commands. No sedation at this moment. - Objective Vital Signs Temp Pulse Resp BP Pulse Ox 10/09/17 08:00 35 H 10/09/17 06:46 145 H 95/56 L 10/09/17 06:32 144 H 33 H 89 L 10/09/17 06:00 33 H 10/09/17 05:12 150 H 10/09/17 04:50 150 H 10/09/17 04:00 100.1 F H 25 H 10/09/17 02:50 153 H 25 H 92 L 10/09/17 02:49 154 H 10/09/17 02:15 164 H 10/09/17 02:00 32 H 10/09/17 00:00 98.5 F 25 H 92 L 10/08/17 22:45 76 10/08/17 22:42 96 25 H 81 L 10/08/17 22:00 97.8 F 24 H Weight 153 lb 14.122 oz 10/08/17 10/09/17 10/10/17 06:59 06:59 06:59 Intake Total 3712 Output Total 650 40 Balance 3062 -40 - Physical Examination General/Neuro: alert & oriented x3 Neck: no JVD present Lungs: other: (coases and very diminished at bases) Heart: other: (irregular) Abdomen: soft Extremities: other: (No edemas) - Telemetry Telemetry Rhythm: ST 110-120s - Labs Result Diagrams: 10/09/17 04:23 10/09/17 03:30 Troponin/CKMB CK-MB (CK-2) 3.8 ng/mL (0-6.6) 10/08/17 19:47 Troponin I 0.201 ng/mL (< 0.028) H 10/08/17 19:47 - Assessment/Plan 1. Afib/Aflutter with RVR - Started from 0300 on 10/09/17; HR remains 110-120s after Cardioversion x1 now by Dr Baker; on Amiodarone drip. Cont. monitor 2. Acute Resp. failure 2ndary to Rt lobe PNA - on Mechanical Vent; managed by instrumentation designer 3. Rt pneumothrax 2ndary to post codes x3 - on CT with suctioning 4. 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 AKD - possible secondary to dehydration; cont. IV fluid 6. Hypotension - on Epi, IV fluid and Livophed; no sedation at this time; cont. monitor MAR reviewed Review of Systems - Review of Systems Constitutional: reports: see HPI EENTM: reports: see HPI Respiratory: reports: see HPI Cardiac (ROS): reports: see HPI
[2017-10-09] MEDS: Saccharomyces boulardii 250 MG CAP PO SCH (09:39)
--- NOTE | 2017-10-09 11:06 | OP ---
DATE OF PROCEDURE: 10/09/2017 INDICATION FOR PROCEDURE: Atrial flutter with rapid ventricular response, heart rate of 150 with hyp otension which is not being controlled by medical management. She was already on pressors and blood pressure still remained low with tachycardia. She was given short acting propofol for short-acting a nesthesia, then using 1 attempt at 50 joules she was successfully converted from her atrial flutter b ack to normal sinus rhythm with a heart rate in the 1-teens with sinus tachycardia. There were no di fficulties or complications encountered. At the end of the procedure, the blood pressure was still h ypotensive at 82/46. She was given a bolus of IV fluids with some improvement in the blood pressure and heart rate remains with a sinus rhythm.
--- NOTE | 2017-10-09 11:17 | PDOC.PN ---
- Subjective Encounter Start Date: 10/09/17 Encounter Start Time: 09:50 -: old records requested/rev pt is intubated, she is on 2 vasopressure, she is in aflutter, grandson bedside , on ventilator last night pt had code blue and she required chest tube placement - Objective Resuscitation Status: Resuscitation Status FULL:Full Resuscitation MAR Reviewed: Yes Vital Signs & Weight: Vital Signs (12 hours) Temp Pulse Resp BP Pulse Ox 10/09/17 10:32 117 H 100/54 L 10/09/17 10:31 116 H 34 H 94 L 10/09/17 10:00 28 H 10/09/17 09:37 145 H 10/09/17 08:00 102.2 F H 145 H 32 H 92 L 10/09/17 06:46 145 H 95/56 L 10/09/17 06:32 144 H 33 H 89 L 10/09/17 06:00 33 H 10/09/17 05:12 150 H 10/09/17 04:50 150 H 10/09/17 04:00 100.1 F H 25 H 10/09/17 02:50 153 H 25 H 92 L 10/09/17 02:49 154 H 10/09/17 02:15 164 H 10/09/17 02:00 32 H 10/09/17 00:00 98.5 F 25 H 92 L Weight Weight 153 lb 14.122 oz Most Recent Monitor Data Heart Rate from ECG 117 NIBP 226/63 NIBP BP-Mean 127 Respiration from ECG 27 SpO2 95 I&O: 10/08/17 10/09/17 10/10/17 06:59 06:59 06:59 Intake Total 3712 221 Output Total 650 115 Balance 3062 106 Result Diagrams: 10/09/17 04:23 10/09/17 03:30 Additional Labs: Accuchecks 10/08/17 18:47 POC Glucose 89 Radiology Reviewed by me: Yes (chest xray) EKG Reviewed by me: Yes (aflutter) Phys Exam - Physical Examination Constitutional: NAD intubated HEENT: PERRLA, moist MMs, sclera anicteric Neck: no JVD, supple Respiratory: wheezing present chest tube in placem rales on right side Cardiovascular: RRR, no significant murmur, no rub atrial flutter Gastrointestinal: soft, no distention, positive bowel sounds Musculoskeletal: no edema, pulses present Lymphatic: no nodes Skin: no rash, normal turgor Dx/Plan (1) Atrial flutter with rapid ventricular response Code(s): I48.92 - UNSPECIFIED ATRIAL FLUTTER Status: Acute Comment: s/p cardioversion today and now converted to sinus (2) Acidosis, metabolic, with respiratory acidosis Code(s): E87.4 - MIXED DISORDER OF ACID-BASE BALANCE Status: Acute (3) Acute kidney failure Status: Acute (4) Acute pneumothorax Code(s): J93.83 - OTHER PNEUMOTHORAX Status: Acute Comment: s/p chest tube placement (5) Acute respiratory failure with hypoxia Code(s): J96.01 - ACUTE RESPIRATORY FAILURE WITH HYPOXIA Status: Acute Comment: on ventilator (6) Demand ischemia of myocardium Code(s): I24.8 - OTHER FORMS OF ACUTE ISCHEMIC HEART DISEASE Status: Acute (7) Parapneumonic effusion Code(s): J18.9 - PNEUMONIA, UNSPECIFIED ORGANISM; J91.8 - PLEURAL EFFUSION IN OTHER CONDITIONS CLASSIFIED ELSEWHERE Status: Acute Comment: (8) Right lower lobe pneumonia Code(s): J18.1 - LOBAR PNEUMONIA, UNSPECIFIED ORGANISM Status: Acute Qualifiers: Pneumonia type: due to other aerobic Gram-negative bacteria Qualified Code( s): J15.6 - Pneumonia due to other Gram-negative bacteria (9) Sepsis with multi-organ dysfunction Code(s): A41.9 - SEPSIS, UNSPECIFIED ORGANISM; R65.20 - SEVERE SEPSIS WITHOUT SEPTIC SHOCK Status: Acute (10) Septic shock Code(s): A41.9 - SEPSIS, UNSPECIFIED ORGANISM; R65.21 - SEVERE SEPSIS WITH SEPTIC SHOCK Status: Acute (11) Shock liver Code(s): K72.00 - ACUTE AND SUBACUTE HEPATIC FAILURE WITHOUT COMA Status: Acute (12) Anemia, normocytic normochromic Code(s): D64.9 - ANEMIA, UNSPECIFIED Status: Chronic (13) CKD (chronic kidney disease) stage 3, GFR 30-59 ml/min Status: Chronic (14) HTN (hypertension) Code(s): I10 - ESSENTIAL (PRIMARY) HYPERTENSION Status: Chronic Qualifiers: Hypertension type: essential hypertension Qualified Code(s): I10 - Essential (primary) hypertension Comment: Resume home BP regimen and monitor clinically (15) Paroxysmal atrial fibrillation Code(s): I48.0 - PAROXYSMAL ATRIAL FIBRILLATION Status: Chronic (16) SCC (squamous cell carcinoma of lung) Code(s): C34.90 - MALIGNANT NEOPLASM OF UNSP PART OF UNSP BRONCHUS OR LUNG Status: Chronic (17) Subclinical hypothyroidism Code(s): E03.9 - HYPOTHYROIDISM, UNSPECIFIED Status: Chronic Comment: (18) Atrial fibrillation with RVR Code(s): I48.91 - UNSPECIFIED ATRIAL FIBRILLATION Status: Resolved Comment: - Plan cont current plan of care, plan discussed w/ family, continue antibiotics, respiratory therapy * continue vasopressure with levophed and epi drip and titrate as needed * s/p cardioversion for aflutter * medication reviewed as below * symptomatic treatment * monitor labs * vent per pulmonary * prognosis is very poor * condition is still critical * discussed with family bedside * continue vancomycin and zosyn * follow culture. Review of Systems - Review of Systems Other: unable to review as pt is intubated - Medications/Allergies Allergies/Adverse Reactions: Allergies Allergy/AdvReac Type Severity Reaction Status Date / Time sulfamethoxazole Allergy Verified 03/16/15 17:15 [From Bactrim] trimethoprim [From Bactrim] Allergy Verified 03/16/15 17:15 Medications: Current Medications Acetaminophen (Tylenol) 650 mg PO Q4H PRN PRN Reason: Headache/Fever or Pain Al Hydroxide/Mg Hydroxide (Maalox) 30 ml PO Q6H PRN PRN Reason: Heartburn or Indigestion Albuterol/Ipratropium (Duoneb) 3 ml NEB [id number] [facility] Last Admin: 10/09/17 10:31 Dose: 3 ml Artificial Tears (Tears Naturale) 0 drop EA EYE PRN PRN PRN Reason: Dry Eyes Benzonatate (Tessalon) 100 mg PO Q4H PRN PRN Reason: Cough Famotidine (Pepcid) 20 mg SLOW IVP DAILY [facility] Last Admin: 10/09/17 09:30 Dose: 20 mg Guaifenesin (Robitussin Sf) 200 mg PO Q4H PRN PRN Reason: Cough Heparin Sodium (Porcine) (Heparin) 5,000 units SC BID [facility] Last Admin: 10/09/17 09:28 Dose: 5,000 units Hydralazine HCl (Apresoline) 10 mg SLOW IVP Q4H PRN PRN Reason: Systolic BP > 180 Vancomycin HCl 1 gm/ Device 200 mls @ 200 mls/hr IVPB DAILY [facility] Last Admin: 10/09/17 09:28 Dose: 200 mls Norepinephrine Bitartrate (Levophed) 250 mls @ 0 mls/hr IVPB PRN PRN; Protocol ; Titrate PRN Reason: To maintain MAP > 65 Last Admin: 10/09/17 03:53 Dose: 250 mls Fentanyl (Fentanyl Cadd) 250 mls @ 0 mls/hr IVPB INF [facility]; Titrate PRN Reason: Protocol Stop: 11/07/17 13:21 Fentanyl Citrate (Fentanyl Bolus) 250 mls @ 0 mls/hr IVPB PRN PRN; As Directed PRN Reason: Breakthrough pain Stop: 11/07/17 13:21 Epinephrine 4 mg/ Dextrose/ (Water) 254 mls @ 0 mls/hr IVP INF [facility]; Titrate PRN Reason: Protocol Last Admin: 10/09/17 02:17 Dose: 254 mls Piperacillin Sod/Tazobactam (Sod 3.375 gm/ Sodium Chloride) 100 mls @ 200 mls/ hr IVPB 0400,1000,1600,2200 [facility] Last Admin: 10/09/17 11:12 Dose: 100 mls Sodium Bicarbonate 75 meq/ (Dextrose/Water) 575 mls @ 150 mls/hr IV .Q3H50M [facility] Loperamide HCl (Imodium) 2 mg PO PRN PRN PRN Reason: Diarrhea/Loose Stools Loratadine (Claritin) 10 mg PO DAILYPRN PRN PRN Reason: Sinus Symptoms Lorazepam (Ativan) 2 mg SLOW IVP Q2H PRN PRN Reason: Anxiety to achieve [place] 2-3 Stop: 11/07/17 13:21 Magnesium Hydroxide (Milk Of Magnesium) 30 ml PO DAILYPRN PRN PRN Reason: Constipation Methylprednisolone Sodium Succinate (Solu-Medrol) 40 mg IVP Q6HR [facility] Last Admin: 10/09/17 05:13 Dose: 40 mg Mineral Oil/White Petrolatum (Eucerin Cream) 0 gm TOP BIDPRN PRN PRN Reason: Dry Skin Miscellaneous Medication (Pharmacy To Dose) 0 each IVPB ASDIR PRN PRN Reason: Pharmacy to Dose VANCOMYCIN Morphine Sulfate (Morphine) 2 mg IVP Q2H PRN PRN Reason: Breakthrough pain Stop: 11/07/17 13:21 Ondansetron HCl (Zofran Odt) 4 mg PO Q6H PRN PRN Reason: Nausea/Vomiting Ondansetron HCl (Zofran) 4 mg IVP Q6H PRN PRN Reason: Nausea/Vomiting Phenol (Chloraseptic [place] 180 Ml Bot) 0 ml PO PRN PRN PRN Reason: Sore Throat Propofol (Diprivan) 1,000 mg IV INF PRN; Protocol PRN Reason: TO ACHIEVE [place]IL[place] SCORE 2-3 Stop: 11/07/17 13:21 Saccharomyces Boulardii (Florastor) 250 mg PO DAILY [facility] Last Admin: 10/09/17 09:39 Dose: Not Given Senna (Senokot) 2 tab PO HSPRN PRN PRN Reason: Constipation Sodium Chloride ([place] Nasal [place] 0.65%) 0 ml EA NARE QIDPRN PRN PRN Reason: Nasal Congestion
--- NOTE | 2017-10-09 11:40 | PRG ---
DATE OF SERVICE: 10/09/2017 DATE OF ADMISSION: 10/08/2017 HISTORY OF PRESENT ILLNESS: A 62-year-old female. She was admitted yesterday with what appears to b e sepsis with acute respiratory failure. She required intubation in the emergency room. She has a h istory of lung cancer as well as intermittent atrial fibrillation. On last admission, she did have a trial fibrillation. This time, she also was admitted and had atrial fibrillation with rapid ventricu lar response. She was given IV diltiazem in the emergency room and then became hypotensive. The med ication was discontinued and then she self-converted to sinus rhythm. Late last night or early this morning, she developed again tachycardia and was given more digoxin, but still had increased rate con trol this morning, which is uncontrollable and appears to be atrial flutter. She is still intubated, unable to give any history, but is awake and does nod her head to yes or no and appears to be relati vely comfortable. She does have a fever today and ice packs have been applied. She has had multiple other medical problems that will be addressed, but at this time, she is awake, but intubated, and colon s had some sort of sedation following the electrical cardioversion. She is unable to give any review of systems, but does not appear to be otherwise uncomfortable. She still is not making any urine th us far, as other laboratory data, which are compatible with most likely organ failure due to her acut e sepsis. LABORATORY DATA: Shows a white blood cell count of 33.9, hemoglobin 9.7, and platelet count was 587, 000. Sodium is 143, potassium 3.6, bicarbonate is 18, BUN is 63 with a creatinine of 2.95; yesterday creatinine was 2.81. Blood sugar is 175. Her calcium is 7.0. AST is 2414 with an ALT of 639. Car diac enzymes are abnormal, but this may be due to the overwhelming sepsis. The troponin is 0.2, yest erd afternoon was 0.078, but most likely this is due to the demand ischemia associated with the sep sis. PHYSICAL EXAMINATION: VITAL SIGNS: Blood pressure is 81/45, heart rate was 119 beats per minute. Respiratory rate is abou t 25 on the ventilator. O2 saturation is 96%, which did improve after she was cardioverted. GENERAL: Reveals an ill-appearing female. CHEST: She also has a chest tube in the right chest. She has scattered rhonchi and rales bilaterall y. CARDIOVASCULAR EXAM: Reveals a regular rhythm with tachycardia. There were no gross murmurs noted. ABDOMEN: Soft and nontender. EXTREMITIES: Showed no clubbing or cyanosis. No significant edema noted. NEUROLOGIC: The patient remains awake and alert except when she has been given sedation for the card ioversion. MEDICATIONS: Include Tylenol. She has been given albumin yesterday. She is on IV amiodarone for th e atrial fibrillation and flutter. She is on tessalon perles. She has been given IV digoxin. She i s also on pressors in the form of epinephrine and Levophed. She is on Pepcid. She is also on fentan yl for some sedation. She has been given subcu heparin 5000 units b.i.d. She is on other p.r.n. med ications for blood pressure, which has not been necessary at this time. She has been given methylpre dnisolone. She is on antibiotics in the form of piperacillin and vancomycin. IMPRESSION: 1. Overwhelming sepsis with organ insufficiency or failure with what appears to be multiple problems . She is on antibiotics. 2. Abnormal laboratory data indicating acute renal failure. She has had no significant urine output , most likely this is due to the sepsis. 3. Abnormal liver function studies. This also may be associated with the sepsis and hypoperfusion. 4. History of lung cancer. 5. Chest tube placement due to the pneumothorax after CPR for cardiac arrest. 6. Atrial fibrillation/flutter. She underwent cardioversion this morning, and at this time, still r emains in sinus rhythm at the time of this dictation, after she was successfully converted from atria l flutter back to sinus rhythm. We will continue the amiodarone in the hopes that this will keep her in sinus rhythm. However, with her liver abnormalities, we may need to stop the amiodarone after th e loading dose. We will go ahead and stop that at this time. She did not tolerate the diltiazem. H er chest x-ray does show what appears to be some increased congestion and also some haziness in the r ight lower lobe area, most likely due to previous infections or lung problems, and certainly, we will need to evaluate this, but she also has some mild small pneumothorax previous, which has been repair ed by the chest tube. I will continue to follow this patient with you. This is an overall very ill patient, who is still FULL CODE. She appears to have this right lower lobe pneumonia as most likely the abnormality noted on the chest x-ray. 7. Probable, at least right if not, bilateral lower lobe pneumonia.
[2017-10-09] MEDS ORDERED: Propofol 1,000 MG/100 ML VIAL IV SCH (12:30)
[2017-10-09] MEDS: Propofol 1,000 MG/100 ML VIAL IV PRN (12:44)
[2017-10-09] MEDS ORDERED: Rocuronium Bromide 50 MG/5 ML VIAL ONE (12:59)
[2017-10-09] MEDS: Sodium Bicarbonate 75 MEQ in Dextrose 5% in Water 500 ML IV SCH ×6 (13:19→22:15)
[2017-10-09] MEDS: Midazolam HCl 2 mg/2 ml Vial ONE (13:22)
--- NOTE | 2017-10-09 20:09 | OP ---
PROCEDURE: Bronchoscopy. Consent was obtained from family. The patient was sedated with Versed and propofol. She required vo lume bolus because of hypotension with Versed and paralytic were given also. Bronchoscopy was performed through the endotracheal tube once she was sedated. The right middle lobe bronchus was a pin hole. Bronchus intermedius could not be entered, but had a lumen. The bronchial mucosa in this area was friable. Multiple biopsies were obtained. It is unclear whether or this is radiation changes or malignant process. Visibly appeared more to be a radiation change than a malig ryley with biopsies hopefully we will answer that question. Bulb washings were obtained as well. No purulent exudate was encountered, although was reported yesterday. She had foul smelling endotrache al tube mucus. Cultures have been reviewed and are negative so far, respiratory cultures are polymicrobial. Perhaps she has some lung necrosis in the right lower lobe with a polymicrobial infection. We will c marty with current care. I met with the family after the procedure and answered all their question s.
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
[2017-10-10] MEDS: Sodium Bicarbonate 75 MEQ in Dextrose 5% in Water 500 ML IV SCH ×14 (02:28→22:37)
[2017-10-10] MEDS: Piperacillin/Tazobactam 3.375 GM in Sodium Chloride 0.9% 100 ML IVPB SCH ×4 (04:03→22:49)
[2017-10-10 04:35] LABS: ALT (SGPT) 537 U/L (8-55); AST (SGOT) 975 U/L (5-34); Alkaline Phosphatase 128 U/L (40-150); Anion Gap 16 mmol/L (10-20); BUN (Urea Nitrogen) 72 mg/dL (9.8-20.1); Bilirubin, Total 1.2 mg/dL (0.2-1.2); Calc. Creatinine Clearance 17 mL/min (70-130); Calcium 6.3 mg/dL (7.8-10.44); Carbon Dioxide 26 mmol/L (23-31); Chloride 106 mmol/L (98-107); Estimated GFR-MDRD 12; Globulin 2.4 g/dL (2.4-3.5); Protein, Total 4.2 g/dL (6.0-8.3)
[2017-10-10 04:39] LABS: Band 24 % (5-11); Hematocrit 24.4 % (36.0-47.0); Mean Platelet Volume 7.1 fL (7.4-10.4); Neutrophil 75 % (42-75); Red Blood Cell (RBC) Count 2.84 mill/uL (4.20-5.40); White Blood Cell (WBC) Count 16.6 thou/uL (4.8-10.8)
[2017-10-10] MEDS: Propofol 1,000 MG/100 ML VIAL IV PRN (05:19)
[2017-10-10] MEDS ORDERED: Potassium Chloride 20 MEQ in Premix Bag 1 BAG IVPB SCH (07:45)
[2017-10-10 08:02] LABS: Oxyhemoglobin 95.6 % (94.0-97.0); Sodium 143 mmol/L (135-148)
[2017-10-10 08:13] LABS: Mechanical Tidal Volume 450 ml; Mode SIMV.PSV; Modified Allen's Test NOT DONE; Pressure Support 10 cmH2O; Vent YES
[2017-10-10 08:39] LABS: Vancomycin, Trough 23.5 ug/mL
[2017-10-10] MEDS ORDERED: Digoxin 0.5 MG/2 ML AMP ONE (09:28)
[2017-10-10] MEDS: Heparin 5,000 UNITS/ML VIAL SC SCH ×2 (09:36→20:15)
--- NOTE | 2017-10-10 09:36 | PDOC.CTH ---
Cardiology Progress Note - Subjective Pt. seen and eval. Overall ill pt. with multiple organ failure or injury. She is intubated and sedated. PRBC's being infused. - ROS not able to obtain ROS - Objective Vital Signs Temp Pulse Resp BP Pulse Ox 10/10/17 08:30 99 F 10/10/17 08:00 32 H 10/10/17 07:00 99 F 10/10/17 06:45 128 H 95/51 L 10/10/17 06:41 118 H 25 H 96 10/10/17 06:00 25 H 10/10/17 04:00 25 H 10/10/17 03:00 99.2 F 10/10/17 02:26 106 H 25 H 98 10/10/17 02:00 25 H 10/10/17 00:00 98.4 F 25 H 10/09/17 22:19 114 H 25 H 98 10/09/17 22:00 25 H Admit Weight 153 lb Weight 167 lb 15.876 oz 10/09/17 10/10/17 10/11/17 06:59 06:59 06:59 Intake Total 3712 4490 0 Output Total 650 235 0 Balance 3062 4255 0 - Physical Examination General/Neuro: other: (sedated on the ventilator.) Lungs: other: (diffuse rhonchi. Decreased breath sounds on the right.) Heart: other: (irreg/irreg.) Abdomen: soft Extremities: other: (left upper extremity edema.) - Labs Result Diagrams: 10/10/17 04:00 10/10/17 04:00 Troponin/CKMB CK-MB (CK-2) 3.8 ng/mL (0-6.6) 10/08/17 19:47 Troponin I 0.201 ng/mL (< 0.028) H 10/08/17 19:47 - Assessment/Plan 1. Afib/Aflutter with RVR - Cardioversion yesterday for atrial flutter, she converted to NSR but now has returned to A-fib. with RVR. The HR is 90's-130's. The BP is stable. It is difficult to give anti arrhythmics due to her renal failure and hepatic failure. The hepatic function seems better based on lab values but the renal function is worsening. I will give an additional dose of digoxin but tis will need to be minimalized in order no to have her become dig. toxic. If she recovers from the pulmonary issues we can likely deal with the Afib. better. Cont. monitor 2. Acute Resp. failure 2ndary to Rt lobe PNA - on Mechanical Vent; managed by investment banking analyst 3. Rt pneumothrax 2ndary to post codes x3 - on CT with suctioning 4. 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 AKD - possible secondary to dehydration; cont. IV fluid 6. Sepsis/ Hypotension - on Epi, IV fluid and Livophed; no sedation at this time ; cont. monitor. 7. anemia- PRBC's transfusing. 8. Hepatic injury _ likely secondary to sepsis. Labs somewhat improved today. Overall very poor prognosis. Biopsy results from the bronchoscopoy are pending. MAR reviewed
[2017-10-10] MEDS: Famotidine/PF 20 mg/2ml Vial SLOW IVP SCH (09:37)
[2017-10-10] MEDS: Saccharomyces boulardii 250 MG CAP PO SCH (09:38)
[2017-10-10] MEDS: Norepinephrine 8 MG/0.9% NS 250 ML IVPB PRN (09:44)
[2017-10-10] MEDS ORDERED: Digoxin 0.5 MG/2 ML AMP SLOW IVP SCH (09:45)
[2017-10-10] MEDS: Vancomycin HCl 750 MG in Sodium Chloride 0.9% 250 ML 250 ML IVPB SCH (10:24)
--- NOTE | 2017-10-10 10:33 | RAD ---
PORTABLE CHEST: Date: 10/10/17 HISTORY: Right pneumothorax. Comparison made to yesterday's exam. FINDINGS/IMPRESSION: There is now complete opacification of the right hemithorax. There is a right chest tube in place. Sl ight shift of the mediastinum to the right suggests volume loss in the right lung. The left lung show s vascular congestion with diffuse edema, with areas of confluent alveolar infiltrate and/or edema in the left lung base. NG tube is noted in place. POS: [facility]
--- NOTE | 2017-10-10 12:28 | PRG ---
DATE OF SERVICE: 10/10/2017 Jeniffer Kirkpatrick remains sedated for mechanical ventilation. PHYSICAL EXAMINATION: VITAL SIGNS: Heart rate is 114, still in atrial fibrillation. Blood pressure 126/54, respiratory ra te is in 20s, oximetry is 96. CHEST: She had more atelectasis on the right. She still has a chest tube in with a large air leak. Lungs are incompletely expanded. CARDIOVASCULAR: Regular, irregular. ABDOMEN: Soft. EXTREMITIES: Without asymmetry. IMPRESSION: 1. Probable recurrence of her non-small cell lung cancer with right main stem bronchus and bronchus intermedius encasement. 2. Atelectasis. 3. Pneumothorax with persistent air leak. 4. Chronic obstructive pulmonary disease. PLAN: Continue mechanical ventilation, supportive care. She is not weanable. I doubt she is a cand idate for mediastinoscopy, but I have asked Dr. Little to review her CAT scan. Pathology from bronchial biopsies yesterday is pending.
--- NOTE | 2017-10-10 13:05 | PDOC.PN ---
- Subjective Encounter Start Date: 10/10/17 Encounter Start Time: 09:30 pt is intubated, again in afib/flutter, still on levophed, hypotensive, on ventilator - Objective Resuscitation Status: Resuscitation Status FULL:Full Resuscitation MAR Reviewed: Yes Vital Signs & Weight: Vital Signs (12 hours) Temp Pulse Resp BP Pulse Ox 10/10/17 12:00 98.8 F 21 H 10/10/17 10:47 114 H 126/54 L 10/10/17 10:46 92 21 H 96 10/10/17 10:25 128 H 10/10/17 10:00 98.8 F 21 H 95 10/10/17 09:38 128 H 10/10/17 08:45 98.9 F 95 10/10/17 08:30 99 F 10/10/17 08:00 32 H 10/10/17 07:00 99 F 10/10/17 06:45 128 H 95/51 L 10/10/17 06:41 118 H 25 H 96 10/10/17 06:00 25 H 10/10/17 04:00 25 H 10/10/17 03:00 99.2 F 10/10/17 02:26 106 H 25 H 98 10/10/17 02:00 25 H Weight Admit Weight 153 lb Weight 167 lb 15.876 oz Most Recent Monitor Data Heart Rate from ECG 134 NIBP 112/52 NIBP BP-Mean 76 Respiration from ECG 26 SpO2 97 I&O: 10/09/17 10/10/17 10/11/17 06:59 06:59 06:59 Intake Total 3712 4490 350 Output Total 650 235 0 Balance 3062 4255 350 Result Diagrams: 10/10/17 04:00 10/10/17 04:00 Radiology Reviewed by me: Yes (chest xray) EKG Reviewed by me: Yes (afib/flutter with RVR) Phys Exam - Physical Examination Constitutional: NAD on ventilator HEENT: PERRLA, sclera anicteric intubated Neck: no JVD, supple right side rales, chest tube in place Cardiovascular: no significant murmur, irregular tachy Gastrointestinal: soft, no distention, positive bowel sounds Musculoskeletal: pulses present, edema present left UE edema more than right Neurological: normal sensation Lymphatic: no nodes Skin: no rash, normal turgor Dx/Plan (1) Atrial flutter with rapid ventricular response Code(s): I48.92 - UNSPECIFIED ATRIAL FLUTTER Status: Acute Comment: s/p cardioversion today and now converted to sinus (2) Acidosis, metabolic, with respiratory acidosis Code(s): E87.4 - MIXED DISORDER OF ACID-BASE BALANCE Status: Acute (3) Acute kidney failure Status: Acute (4) Acute pneumothorax Code(s): J93.83 - OTHER PNEUMOTHORAX Status: Acute Comment: s/p chest tube placement (5) Acute respiratory failure with hypoxia Code(s): J96.01 - ACUTE RESPIRATORY FAILURE WITH HYPOXIA Status: Acute Comment: on ventilator (6) Demand ischemia of myocardium Code(s): I24.8 - OTHER FORMS OF ACUTE ISCHEMIC HEART DISEASE Status: Acute (7) Parapneumonic effusion Code(s): J18.9 - PNEUMONIA, UNSPECIFIED ORGANISM; J91.8 - PLEURAL EFFUSION IN OTHER CONDITIONS CLASSIFIED ELSEWHERE Status: Acute Comment: (8) Right lower lobe pneumonia Code(s): J18.1 - LOBAR PNEUMONIA, UNSPECIFIED ORGANISM Status: Acute Qualifiers: Pneumonia type: due to other aerobic Gram-negative bacteria Qualified Code( s): J15.6 - Pneumonia due to other Gram-negative bacteria (9) Sepsis with multi-organ dysfunction Code(s): A41.9 - SEPSIS, UNSPECIFIED ORGANISM; R65.20 - SEVERE SEPSIS WITHOUT SEPTIC SHOCK Status: Acute (10) Septic shock Code(s): A41.9 - SEPSIS, UNSPECIFIED ORGANISM; R65.21 - SEVERE SEPSIS WITH SEPTIC SHOCK Status: Acute (11) Shock liver Code(s): K72.00 - ACUTE AND SUBACUTE HEPATIC FAILURE WITHOUT COMA Status: Acute (12) Anemia, normocytic normochromic Code(s): D64.9 - ANEMIA, UNSPECIFIED Status: Chronic (13) CKD (chronic kidney disease) stage 3, GFR 30-59 ml/min Status: Chronic (14) HTN (hypertension) Code(s): I10 - ESSENTIAL (PRIMARY) HYPERTENSION Status: Chronic Qualifiers: Hypertension type: essential hypertension Qualified Code(s): I10 - Essential (primary) hypertension Comment: Resume home BP regimen and monitor clinically (15) Paroxysmal atrial fibrillation Code(s): I48.0 - PAROXYSMAL ATRIAL FIBRILLATION Status: Chronic (16) SCC (squamous cell carcinoma of lung) Code(s): C34.90 - MALIGNANT NEOPLASM OF UNSP PART OF UNSP BRONCHUS OR LUNG Status: Chronic (17) Subclinical hypothyroidism Code(s): E03.9 - HYPOTHYROIDISM, UNSPECIFIED Status: Chronic Comment: (18) Atrial fibrillation with RVR Code(s): I48.91 - UNSPECIFIED ATRIAL FIBRILLATION Status: Resolved Comment: (19) Protein-calorie malnutrition, moderate Code(s): E44.0 - MODERATE PROTEIN-CALORIE MALNUTRITION Status: Acute - Plan cont current plan of care, continue antibiotics, respiratory therapy * continue vent as per pulmonary * continue IVF with bicarb drip * transfuse 1 unit PRBC for low Hb * replace potassium IV * creatinine is going up, LFT tending down * continue empiric antibiotics * follow culture * monitor daily labs * medication reviewed as below * symptomatic treatment. Review of Systems - Review of Systems Other: unable to review as pt is intubated - Medications/Allergies Allergies/Adverse Reactions: Allergies Allergy/AdvReac Type Severity Reaction Status Date / Time sulfamethoxazole Allergy Verified 03/16/15 17:15 [From Bactrim] trimethoprim [From Bactrim] Allergy Verified 03/16/15 17:15 Medications: Current Medications Acetaminophen (Tylenol) 650 mg PO Q4H PRN PRN Reason: Headache/Fever or Pain Al Hydroxide/Mg Hydroxide (Maalox) 30 ml PO Q6H PRN PRN Reason: Heartburn or Indigestion Albuterol/Ipratropium (Duoneb) 3 ml NEB X2TD-RU COUNT INCLUDES THE [facility] Last Admin: 10/10/17 10:46 Dose: 3 ml Artificial Tears (Tears Naturale) 0 drop EA EYE PRN PRN PRN Reason: Dry Eyes Benzonatate (Tessalon) 100 mg PO Q4H PRN PRN Reason: Cough Famotidine (Pepcid) 20 mg SLOW IVP DAILY COUNT INCLUDES THE [facility] Last Admin: 10/10/17 09:37 Dose: 20 mg Guaifenesin (Robitussin Sf) 200 mg PO Q4H PRN PRN Reason: Cough Heparin Sodium (Porcine) (Heparin) 5,000 units SC BID COUNT INCLUDES THE [facility] Last Admin: 10/10/17 09:36 Dose: 5,000 units Hydralazine HCl (Apresoline) 10 mg SLOW IVP Q4H PRN PRN Reason: Systolic BP > 180 Norepinephrine Bitartrate (Levophed) 250 mls @ 0 mls/hr IVPB PRN PRN; Protocol ; Titrate PRN Reason: To maintain MAP > 65 Last Admin: 10/10/17 09:44 Dose: 250 mls Fentanyl (Fentanyl Cadd) 250 mls @ 0 mls/hr IVPB INF S[place]IMAN; Titrate PRN Reason: Protocol Stop: 11/07/17 13:21 Fentanyl Citrate (Fentanyl Bolus) 250 mls @ 0 mls/hr IVPB PRN PRN; As Directed PRN Reason: Breakthrough pain Stop: 11/07/17 13:21 Epinephrine 4 mg/ Dextrose/ (Water) 254 mls @ 0 mls/hr IVP INF SULAIMAN; Titrate PRN Reason: Protocol Last Admin: 10/09/17 02:17 Dose: 254 mls Piperacillin Sod/Tazobactam (Sod 3.375 gm/ Sodium Chloride) 100 mls @ 200 mls/ hr IVPB 0400,1000,1600,2200 COUNT INCLUDES THE [facility] Last Admin: 10/10/17 09:36 Dose: 100 mls Sodium Bicarbonate 75 meq/ (Dextrose/Water) 575 mls @ 150 mls/hr IV .Q3H50M COUNT INCLUDES THE [facility] Last Admin: 10/10/17 12:18 Dose: 575 mls Vancomycin HCl 750 mg/ Sodium (Chloride) 250 mls @ 250 mls/hr IVPB 0900 COUNT INCLUDES THE [facility] Last Admin: 10/10/17 10:24 Dose: 250 mls Loperamide HCl (Imodium) 2 mg PO PRN PRN PRN Reason: Diarrhea/Loose Stools Loratadine (Claritin) 10 mg PO DAILYPRN PRN PRN Reason: Sinus Symptoms Lorazepam (Ativan) 2 mg SLOW IVP Q2H PRN PRN Reason: Anxiety to achieve [place] 2-3 Stop: 11/07/17 13:21 Magnesium Hydroxide (Milk Of Magnesium) 30 ml PO DAILYPRN PRN PRN Reason: Constipation Methylprednisolone Sodium Succinate (Solu-Medrol) 40 mg IVP Q6HR COUNT INCLUDES THE [facility] Last Admin: 10/10/17 12:00 Dose: 40 mg Mineral Oil/White Petrolatum (Eucerin Cream) 0 gm TOP BIDPRN PRN PRN Reason: Dry Skin Miscellaneous Medication (Pharmacy To Dose) 0 each IVPB ASDIR PRN PRN Reason: Pharmacy to Dose VANCOMYCIN Morphine Sulfate (Morphine) 2 mg IVP Q2H PRN PRN Reason: Breakthrough pain Stop: 11/07/17 13:21 Ondansetron HCl (Zofran Odt) 4 mg PO Q6H PRN PRN Reason: Nausea/Vomiting Ondansetron HCl (Zofran) 4 mg IVP Q6H PRN PRN Reason: Nausea/Vomiting Phenol (Chloraseptic [place] 180 Ml Bot) 0 ml PO PRN PRN PRN Reason: Sore Throat Propofol (Diprivan) 1,000 mg IV INF PRN; Protocol PRN Reason: TO ACHIEVE [place] SCORE 2-3 Stop: 11/07/17 13:21 Last Admin: 10/10/17 05:19 Dose: 1,000 mg Saccharomyces Boulardii (Florastor) 250 mg PO DAILY [place] Last Admin: 10/10/17 09:38 Dose: 250 mg Senna (Senokot) 2 tab PO HSPRN PRN PRN Reason: Constipation Sodium Chloride ([place] Nasal [place] 0.65%) 0 ml EA NARE QIDPRN PRN PRN Reason: Nasal Congestion
--- NOTE | 2017-10-10 15:36 | RAD ---
SINGLE VIEW CHEST: Date: 10/10/17 Time: 0847 hours HISTORY: Chest tube placement. Right pneumothorax. FINDINGS: Single view of chest shows a normal sized cardiomediastinal silhouette. The lines and tubes are uncha nged in position. There is near complete opacification of the right thorax. Lucency is seen in the ri ght costophrenic angle which may represent a small pneumothorax. Opacity seen in the left lung base w hich likely represents an infiltrate. No change has occurred compared to the prior exam. IMPRESSION: Stable exam. POS: [facility]
--- NOTE | 2017-10-10 20:06 | CON ---
DATE OF CONSULTATION: 10/10/2017 REASON FOR CONSULTATION: History of squamous cell carcinoma of the lung. HISTORY OF PRESENT ILLNESS: Ms. Kirkpatrick is a 62-year-old female, who was recently hospitalized in 10/2016 for shortness of breath. She was found to be in atrial fibrillation. She had a right pleural effusion and some progression in subcarinal lymphadenopathy. She had a thoracentesis done for pleur al effusion, which did not show cancer cells in the pleural fluid. She followed up in our office on 10/01/2017 and was scheduled for a PET scan yesterday. Unfortunately, she became increasingly short of breath and presented to the emergency room. She was placed on BiPAP, but unfortunately went into cardiopulmonary arrest and was intubated, placed on pressors and admitted to the ICU. She had a bron choscopy yesterday performed by Dr. Dawn. Biopsies of the right middle lobe bronchus will perform a nd currently pending. Unfortunately, yesterday evening, she again went into cardiopulmonary arrest a nd had successful CPR. She remains on the ventilator with vasopressors and ventilator support. PAST MEDICAL HISTORY: 1. Stage III nonsmall cell lung cancer, squamous cell type, in remission since 2014. 2. New right pleural effusion on 09/14/2017. 3. Atrial fibrillation. 4. Recent esophageal dilation. 5. Hypertension. 6. COPD. 7. Anxiety. ALLERGIES: To BACTRIM. HOME MEDICATIONS: 1. Cartia 240 mg daily. 2. Chlorthalidone 25 mg daily. 3. Lisinopril 10 mg daily. 4. Nexium 40 mg daily. FAMILY HISTORY: She has a daughter with breast cancer. SOCIAL HISTORY: Single, has 4 children and lives alone. REVIEW OF SYSTEMS: Unable to obtain secondary to sedation and ventilation. PHYSICAL EXAMINATION: VITAL SIGNS: Temperature is 98.8, pulse is 108, respiratory rate is 39, BP is 127/65. She is 96% on O2 saturation. GENERAL: Critically ill patient, in no acute distress. HEENT: Normocephalic, atraumatic. She has an ET tube in place with an OG tube. LUNGS: Have scattered rhonchi throughout. CARDIOVASCULAR: Regular rate and rhythm. ABDOMEN: Soft, nontender, bowel sounds are positive. EXTREMITIES: 2+ edema. SKIN: No rash. HEMATOLOGIC: No petechia or purpura. NEUROLOGIC: Patient is chemically sedated. PERTINENT LABORATORY AND X-RAYS: Current WBCs are 16.6, hemoglobin 7.7, hematocrit 24.4, platelet co unt 306,000. Sodium is 145, potassium 3.1, chloride 106, CO2 is 26, BUN is 72, creatinine 3.7, calci um 6.3, total bilirubin is 1.2, AST is 975, ALT 537, alkaline phosphatase is 128, serum total protein 4.2, albumin 1.8, and globulin 2.4. ASSESSMENT AND PLAN: 1. Possibly recurrent lung cancer. 2. Respiratory failure. 3. Cardiopulmonary arrest. 4. Pneumothorax. DISCUSSION: The patient is being supported by Critical Care Medicine and other consultants. We will await pathology from the tissue biopsies from bronchoscopy and further recommendations will be based on those results. We will provide supportive care and follow the patient remotely.
[2017-10-11] MEDS: Sodium Bicarbonate 75 MEQ in Dextrose 5% in Water 500 ML IV SCH ×6 (02:29→10:49)
[2017-10-11] MEDS: Propofol 1,000 MG/100 ML VIAL IV PRN ×2 (02:31→13:45)
[2017-10-11] MEDS: Piperacillin/Tazobactam 3.375 GM in Sodium Chloride 0.9% 100 ML IVPB SCH ×2 (03:13→10:48)
[2017-10-11 04:33] LABS: Fibrinogen 526 mg/dL (253-463)
[2017-10-11 04:34] LABS: PTT 32.6 SEC (22.9-36.1); Prothrombin Time 18.4 SEC (12.0-14.7)
[2017-10-11 04:36] LABS: Band 19 % (5-11); Hematocrit 25.7 % (36.0-47.0); Mean Platelet Volume 7.8 fL (7.4-10.4); Neutrophil 78 % (42-75); Red Blood Cell (RBC) Count 2.97 mill/uL (4.20-5.40); White Blood Cell (WBC) Count 14.9 thou/uL (4.8-10.8)
[2017-10-11 04:40] LABS: ALT (SGPT) 474 U/L (8-55); AST (SGOT) 515 U/L (5-34); Alkaline Phosphatase 144 U/L (40-150); Anion Gap 19 mmol/L (10-20); BUN (Urea Nitrogen) 78 mg/dL (9.8-20.1); Bilirubin, Total 1.2 mg/dL (0.2-1.2); Calc. Creatinine Clearance 16 mL/min (70-130); Calcium 6.4 mg/dL (7.8-10.44); Carbon Dioxide 30 mmol/L (23-31); Chloride 98 mmol/L (98-107); Estimated GFR-MDRD 11; Globulin 2.6 g/dL (2.4-3.5); Protein, Total 4.4 g/dL (6.0-8.3)
[2017-10-11 04:49] LABS: Digoxin 2.82 ng/mL (0.8-2.0)
[2017-10-11 07:18] LABS: Oxyhemoglobin 97.3 % (94.0-97.0); Sodium 140 mmol/L (135-148)
[2017-10-11 07:19] LABS: Mechanical Tidal Volume 450 ml; Mode AC; Modified Allen's Test NOT DONE; Vent YES
[2017-10-11] MEDS: Famotidine/PF 20 mg/2ml Vial SLOW IVP SCH (09:25)
[2017-10-11] MEDS: Saccharomyces boulardii 250 MG CAP PO SCH (09:26)
[2017-10-11] MEDS: Heparin 5,000 UNITS/ML VIAL SC SCH ×2 (09:26→21:02)
[2017-10-11] MEDS: Vancomycin HCl 750 MG in Sodium Chloride 0.9% 250 ML 250 ML IVPB SCH (09:26)
[2017-10-11] MEDS ORDERED: Sodium Chloride 0.45% 1,000 ML IV SCH ×2 (09:45→10:32)
[2017-10-11] MEDS: Piperacillin/Tazobactam 2.25 GM in Sodium Chloride 0.9% 100 ML IVPB SCH ×3 (10:57→21:02)
--- NOTE | 2017-10-11 11:09 | PDOC.PN ---
- Subjective Encounter Start Date: 10/11/17 Encounter Start Time: 10:00 pt is intubated, on ventilatory, family bedside Patient seen and examined. No overnight events - Objective Resuscitation Status: Resuscitation Status FULL:Full Resuscitation MAR Reviewed: Yes Vital Signs & Weight: Vital Signs (12 hours) Temp Pulse Resp BP Pulse Ox 10/11/17 10:14 90 131/70 10/11/17 10:13 89 25 H 93 L 10/11/17 10:00 22 H 10/11/17 08:00 98.9 F 18 10/11/17 06:33 87 149/67 H 10/11/17 06:30 88 21 H 97 10/11/17 06:00 0 L 10/11/17 04:00 99 F 10/11/17 03:16 22 H 10/11/17 02:15 90 103/49 L 10/11/17 02:00 0 L 10/11/17 00:00 98.7 F 0 L Weight Admit Weight 153 lb Weight 181 lb 14.102 oz Most Recent Monitor Data Heart Rate from ECG 88 NIBP 122/50 NIBP BP-Mean 62 Respiration from ECG 19 SpO2 94 I&O: 10/10/17 10/11/17 10/12/17 06:59 06:59 06:59 Intake Total 4490 3981 850 Output Total 235 277 0 Balance 4255 3704 850 Result Diagrams: 10/11/17 04:04 10/11/17 04:04 Radiology Reviewed by me: Yes (chest xray) EKG Reviewed by me: Yes (afib) Phys Exam - Physical Examination Constitutional: NAD intubated HEENT: PERRLA, moist MMs, sclera anicteric Neck: no JVD, supple Respiratory: no wheezing, no rhonchi right side rales Cardiovascular: no significant murmur, irregular Gastrointestinal: soft, no distention, positive bowel sounds Musculoskeletal: pulses present, edema present Lymphatic: no nodes Skin: no rash, normal turgor Dx/Plan (1) Atrial flutter with rapid ventricular response Code(s): I48.92 - UNSPECIFIED ATRIAL FLUTTER Status: Acute Comment: s/p cardioversion today and now converted to sinus (2) Acidosis, metabolic, with respiratory acidosis Code(s): E87.4 - MIXED DISORDER OF ACID-BASE BALANCE Status: Acute (3) Acute kidney failure Status: Acute (4) Acute pneumothorax Code(s): J93.83 - OTHER PNEUMOTHORAX Status: Acute Comment: s/p chest tube placement (5) Acute respiratory failure with hypoxia Code(s): J96.01 - ACUTE RESPIRATORY FAILURE WITH HYPOXIA Status: Acute Comment: on ventilator (6) Demand ischemia of myocardium Code(s): I24.8 - OTHER FORMS OF ACUTE ISCHEMIC HEART DISEASE Status: Acute (7) Parapneumonic effusion Code(s): J18.9 - PNEUMONIA, UNSPECIFIED ORGANISM; J91.8 - PLEURAL EFFUSION IN OTHER CONDITIONS CLASSIFIED ELSEWHERE Status: Acute Comment: (8) Right lower lobe pneumonia Code(s): J18.1 - LOBAR PNEUMONIA, UNSPECIFIED ORGANISM Status: Acute Qualifiers: Pneumonia type: due to other aerobic Gram-negative bacteria Qualified Code( s): J15.6 - Pneumonia due to other Gram-negative bacteria (9) Sepsis with multi-organ dysfunction Code(s): A41.9 - SEPSIS, UNSPECIFIED ORGANISM; R65.20 - SEVERE SEPSIS WITHOUT SEPTIC SHOCK Status: Acute (10) Septic shock Code(s): A41.9 - SEPSIS, UNSPECIFIED ORGANISM; R65.21 - SEVERE SEPSIS WITH SEPTIC SHOCK Status: Acute (11) Shock liver Code(s): K72.00 - ACUTE AND SUBACUTE HEPATIC FAILURE WITHOUT COMA Status: Acute (12) Anemia, normocytic normochromic Code(s): D64.9 - ANEMIA, UNSPECIFIED Status: Chronic (13) CKD (chronic kidney disease) stage 3, GFR 30-59 ml/min Status: Chronic (14) HTN (hypertension) Code(s): I10 - ESSENTIAL (PRIMARY) HYPERTENSION Status: Chronic Qualifiers: Hypertension type: essential hypertension Qualified Code(s): I10 - Essential (primary) hypertension Comment: Resume home BP regimen and monitor clinically (15) Paroxysmal atrial fibrillation Code(s): I48.0 - PAROXYSMAL ATRIAL FIBRILLATION Status: Chronic (16) SCC (squamous cell carcinoma of lung) Code(s): C34.90 - MALIGNANT NEOPLASM OF UNSP PART OF UNSP BRONCHUS OR LUNG Status: Chronic Qualifiers: Laterality: right Qualified Code(s): C34.91 - Malignant neoplasm of unspecified part of right bronchus or lung (17) Subclinical hypothyroidism Code(s): E03.9 - HYPOTHYROIDISM, UNSPECIFIED Status: Chronic Comment: (18) Atrial fibrillation with RVR Code(s): I48.91 - UNSPECIFIED ATRIAL FIBRILLATION Status: Resolved Comment: (19) Protein-calorie malnutrition, moderate Code(s): E44.0 - MODERATE PROTEIN-CALORIE MALNUTRITION Status: Acute - Plan cont current plan of care, plan discussed w/ family, continue antibiotics * pathology report c/w SCC of lung * oncology consulted * continue empiric antibiotics, will adjust dose as per renal dose today * renal function is going up and LFT is tending down * now bicarb drip can be reduced or stopped * vent as per pulmonary * prognosis is poor * condition still critical * will monitor in ccu. Review of Systems - Review of Systems Other: unable to review as pt is intubated - Medications/Allergies Allergies/Adverse Reactions: Allergies Allergy/AdvReac Type Severity Reaction Status Date / Time sulfamethoxazole Allergy Verified 03/16/15 17:15 [From Bactrim] trimethoprim [From Bactrim] Allergy Verified 03/16/15 17:15 Medications: Current Medications Acetaminophen (Tylenol) 650 mg PO Q4H PRN PRN Reason: Headache/Fever or Pain Al Hydroxide/Mg Hydroxide (Maalox) 30 ml PO Q6H PRN PRN Reason: Heartburn or Indigestion Albuterol/Ipratropium (Duoneb) 3 ml NEB [id number] [facility] Last Admin: 10/11/17 10:13 Dose: 3 ml Artificial Tears (Tears Naturale) 0 drop EA EYE PRN PRN PRN Reason: Dry Eyes Famotidine (Pepcid) 20 mg SLOW IVP DAILY [facility] Last Admin: 10/11/17 09:25 Dose: 20 mg Guaifenesin (Robitussin Sf) 200 mg PO Q4H PRN PRN Reason: Cough Heparin Sodium (Porcine) (Heparin) 5,000 units SC BID [facility] Last Admin: 10/11/17 09:26 Dose: 5,000 units Hydralazine HCl (Apresoline) 10 mg SLOW IVP Q4H PRN PRN Reason: Systolic BP > 180 Norepinephrine Bitartrate (Levophed) 250 mls @ 0 mls/hr IVPB PRN PRN; Protocol ; Titrate PRN Reason: To maintain MAP > 65 Last Admin: 10/10/17 09:44 Dose: 250 mls Fentanyl (Fentanyl Cadd) 250 mls @ 0 mls/hr IVPB INF S[place]AIMAN; Titrate PRN Reason: Protocol Stop: 11/07/17 13:21 Fentanyl Citrate (Fentanyl Bolus) 250 mls @ 0 mls/hr IVPB PRN PRN; As Directed PRN Reason: Breakthrough pain Stop: 11/07/17 13:21 Vancomycin HCl 750 mg/ Sodium (Chloride) 250 mls @ 250 mls/hr IVPB 0900 [facility] Last Admin: 10/11/17 09:26 Dose: 250 mls Sodium Chloride (1/2 Normal Saline) 1,000 mls @ 0 mls/hr IV .Q0M SULAIMAN PRN Reason: KVO Piperacillin Sod/Tazobactam (Sod 2.25 gm/ Sodium Chloride) 100 mls @ 200 mls/ hr IVPB 0400,1000,1600,2200 [facility] Last Admin: 10/11/17 10:57 Dose: 100 mls Loperamide HCl (Imodium) 2 mg PO PRN PRN PRN Reason: Diarrhea/Loose Stools Loratadine (Claritin) 10 mg PO DAILYPRN PRN PRN Reason: Sinus Symptoms Magnesium Hydroxide (Milk Of Magnesium) 30 ml PO DAILYPRN PRN PRN Reason: Constipation Methylprednisolone Sodium Succinate (Solu-Medrol) 40 mg IVP DAILY [facility] Mineral Oil/White Petrolatum (Eucerin Cream) 0 gm TOP BIDPRN PRN PRN Reason: Dry Skin Miscellaneous Medication (Pharmacy To Dose) 0 each IVPB ASDIR PRN PRN Reason: Pharmacy to Dose VANCOMYCIN Ondansetron HCl (Zofran Odt) 4 mg PO Q6H PRN PRN Reason: Nausea/Vomiting Ondansetron HCl (Zofran) 4 mg IVP Q6H PRN PRN Reason: Nausea/Vomiting Phenol (Chloraseptic [place] 180 Ml Bot) 0 ml PO PRN PRN PRN Reason: Sore Throat Propofol (Diprivan) 1,000 mg IV INF PRN; Protocol PRN Reason: TO ACHIEVE [place] SCORE 2-3 Stop: 11/07/17 13:21 Last Admin: 10/11/17 02:31 Dose: 1,000 mg Saccharomyces Boulardii (Florastor) 250 mg PO DAILY [facility] Last Admin: 10/11/17 09:26 Dose: 250 mg Senna (Senokot) 2 tab PO HSPRN PRN PRN Reason: Constipation Sodium Chloride ([place] Nasal [place] 0.65%) 0 ml EA NARE QIDPRN PRN PRN Reason: Nasal Congestion
--- NOTE | 2017-10-11 11:09 | PRG ---
DATE OF SERVICE: 10/11/2017 SERVICE: Pulmonary Medicine. INTERVAL HISTORY: The patient is doing okay from a respiratory standpoint. She is awake and alert. She is on mechanical ventilation, but not requiring much in the form of sedation. She is cooperative and has no complaints of anxiety or pain. Otherwise, there has been no interval change to her condition. Her urine output is inadequate. Liver function studies remain elevated. She has been titrated off of all pressors. There were no overnight events. PHYSICAL EXAMINATION: VITAL SIGNS: Afebrile with a T-max of 102.2 yesterday. Pulse 89, blood pressure 122/50, respirations 25, saturation 93% on 30% FIO2 and a PEEP of 5. GENERAL: The patient is awake and alert. She is cooperative. CAM negative. HEENT: Normocephalic, atraumatic. Sclerae are white, conjunctivae pink. Oral and nasal mucosa is moist without lesions. LUNGS: Decent air entry. There is a slightly prolonged expiratory phase. Crackles are present. HEART: Normal rate, regular. ABDOMEN: Soft, nontender, nondistended. Bowel sounds are positive. MUSCULOSKELETAL: No cyanosis or clubbing. Diffuse pitting is present throughout. GENITOURINARY: Pickering catheter in place. NEUROLOGIC: Grossly nonfocal. LABORATORY DATA: WBC 14.9, hemoglobin 8.4, platelets 197,000. Band count is settling down at 19% and her neutrophil count is 78%. INR 1.5. PH 7.51, pCO2 of 37, pO2 of 123. This is on 45% FIO2 and a PEEP of 8. Creatinine 4.23. Basic metabolic profile is otherwise unremarkable. Potassium 3.6, sodium 143. AST and ALT are down trending. Digoxin 2.82. Yeast species are growing in the respiratory assay. There is also multiple other organisms that are growing normal respiratory alfredo. IMAGING DATA: Chest x-ray demonstrates stable view of the chest without significant change. There is complete opacification of the entirety of the right lung. Thoracostomy drain is traversing the chest wall. The side port is barely inside the ribcage. ASSESSMENT: 1. Acute hypoxic respiratory failure. 2. Postobstructive health care associated pneumonia. 3. Nonsmall cell lung cancer with likely recurrent disease. 4. Atelectasis of the right lung. 5. Pneumothorax with persistent air leak. 6. Chronic obstructive pulmonary disease with acute exacerbation. PLAN: We will continue supportive care. At this point, we do not have to control the patient's volume status. I will minimize our fluids that we give the patient. Hopefully, in 24-48 hours, she will to start to make urine. At that point, weaning can be considered. In the meantime, supportive care with antibiotics, nebulize medications, and steroids will be continued. Pulmonary Critical Care will continue to follow while the patient remains in house. Critical care time: 30 minutes. [place]
--- NOTE | 2017-10-11 12:13 | PDOC.CTH ---
<Katherine Hong - Last Filed: 10/11/17 12:07> Cardiology Progress Note - Subjective The pt seen and examined. No significant overnight events. She opened her eyes and answered question with nodding and shaking her head. She denied any cardiac complaints at this time. However, she is on Vent sedation at this time. Still on Vent with vent sedation. Tele record showed she converted back to SR at 2024@10/10/17 - Objective Vital Signs Temp Pulse Resp BP Pulse Ox 10/11/17 10:14 90 131/70 10/11/17 10:13 89 25 H 93 L 10/11/17 10:00 22 H 10/11/17 08:00 98.9 F 18 10/11/17 06:33 87 149/67 H 10/11/17 06:30 88 21 H 97 10/11/17 06:00 0 L 10/11/17 04:00 99 F 10/11/17 03:16 22 H 10/11/17 02:15 90 103/49 L 10/11/17 02:00 0 L Admit Weight 153 lb Weight 181 lb 14.102 oz 10/10/17 10/11/17 10/12/17 06:59 06:59 06:59 Intake Total 4490 3981 850 Output Total 235 277 0 Balance 4255 3704 850 - Physical Examination Neck: no JVD present Lungs: other: (diminished at bases ) Heart: RRR Abdomen: soft Extremities: other: (No edema) - Telemetry Telemetry Rhythm: SR 90 - Labs Result Diagrams: 10/11/17 04:04 10/11/17 04:04 Troponin/CKMB CK-MB (CK-2) 3.8 ng/mL (0-6.6) 10/08/17 19:47 Troponin I 0.201 ng/mL (< 0.028) H 10/08/17 19:47 - Assessment/Plan 1. Afib/Aflutter with RVR - Cardioversion for atrial flutter, she converted to NSR on 10/09/17, but returned to A-fib on 10/10/17. Then SR since 10/10/17 @ 2024. The HR is 80-90's. The BP is stable and off Levophed now. It is difficult to give anti arrhythmics due to her renal failure and hepatic failure. The hepatic function seems better based on lab values but the renal function is worsening. If she recovers from the pulmonary issues we can likely deal with the Afib. better. Cont. monitor 2. Acute Resp. failure 2ndary to Rt lobe PNA - on Mechanical Vent; managed by flame hardening machine setter 3. Rt pneumothrax 2ndary to post codes x3 - on CT with suctioning 4. 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 AKD - is worsening; cont. IV fluid 6. Sepsis/ Hypotension - stable with sedation and off Livaphed and Epi at this time; cont. monitor. 7. anemia- PRBC's x1 on 10/10/17. 8. Hepatic injury - likely secondary to sepsis. Labs somewhat improved today. MAR reviewed Review of Systems - Review of Systems Constitutional: reports: see HPI EENTM: reports: see HPI Respiratory: reports: see HPI Cardiac (ROS): reports: see HPI ABD/GI: reports: see HPI : reports: see HPI Musculoskeletal: reports: see HPI <Janine Baker - Last Filed: 10/11/17 17:36> Cardiology Progress Note - Objective Vital Signs Temp Pulse Resp BP Pulse Ox 10/11/17 16:00 99 F 28 H 10/11/17 14:19 85 115/53 L 10/11/17 14:18 84 20 95 10/11/17 14:00 32 H 10/11/17 12:00 98.9 F 20 10/11/17 10:14 90 131/70 10/11/17 10:13 89 25 H 93 L 10/11/17 10:00 22 H 10/11/17 08:00 98.9 F 85 23 H 95 10/11/17 06:33 87 149/67 H 10/11/17 06:30 88 21 H 97 10/11/17 06:00 0 L Admit Weight 153 lb Weight 181 lb 14.102 oz 10/10/17 10/11/17 10/12/17 06:59 06:59 06:59 Intake Total 4490 3981 850 Output Total 235 277 0 Balance 4255 3704 850 - Labs Result Diagrams: 10/11/17 04:04 10/11/17 04:04 Troponin/CKMB CK-MB (CK-2) 3.8 ng/mL (0-6.6) 10/08/17 19:47 Troponin I 0.201 ng/mL (< 0.028) H 10/08/17 19:47 - Assessment/Plan Pt. seen and eval. she continues to maintain NSR. I agree with the A/P by the WET CHEMISTRY ANALYST. She remains intubated and is awake.
[2017-10-12] MEDS: Diltiazem HCl 125 MG, Admixture Fee 1 EACH in Sodium Chloride 0.9% 100 ML IVPB SCH ×2 (00:32→22:33)
[2017-10-12] MEDS: Piperacillin/Tazobactam 2.25 GM in Sodium Chloride 0.9% 100 ML IVPB SCH ×4 (04:08→21:42)
[2017-10-12 05:49] LABS: ALT (SGPT) 362 U/L (8-55); AST (SGOT) 188 U/L (5-34); Alkaline Phosphatase 344 U/L (40-150); Anion Gap 20 mmol/L (10-20); BUN (Urea Nitrogen) 100 mg/dL (9.8-20.1); Bilirubin, Total 1.1 mg/dL (0.2-1.2); Calc. Creatinine Clearance 15 mL/min (70-130); Calcium 6.9 mg/dL (7.8-10.44); Carbon Dioxide 30 mmol/L (23-31); Chloride 97 mmol/L (98-107); Estimated GFR-MDRD 9; Globulin 3.1 g/dL (2.4-3.5); Protein, Total 5.1 g/dL (6.0-8.3)
[2017-10-12 06:43] LABS: Band 4 % (5-11); Mean Platelet Volume 9.5 fL (7.4-10.4); Metamyelocyte 1 % (0-0); Neutrophil 86 % (42-75); Reactive Lymphocytes 1 % (0-10); Red Blood Cell (RBC) Count 3.48 mill/uL (4.20-5.40); White Blood Cell (WBC) Count 10.1 thou/uL (4.8-10.8)
[2017-10-12] MEDS ORDERED: Sterile Water 10 ML ONE (07:26)
[2017-10-12] MEDS: Propofol 1,000 MG/100 ML VIAL IV PRN ×3 (07:37→20:30)
[2017-10-12 08:43] LABS: Vancomycin, Trough 36.1 ug/mL
--- NOTE | 2017-10-12 08:47 | RAD ---
FRONTAL VIEW CHEST: COMPARISON: 10/10/17. INDICATION: Prior pneumothorax, followup. FINDINGS: There remains a chest tube located within the lateral right chest. A small focal lucency of the righ t lateral lung base remains which may relate to persistent mild pneumothorax. Interval improvement w ith regard to diffuse opacity of the right hemithorax. There is bilateral alveolar edema, predominan tly perihilar in distribution with dense areas of consolidation at each lung base. Endotracheal tube and enteric catheter remain. IMPRESSION: 1. Small right pneumothorax is stable. 2. Improving opacification of the right chest. 3. Evidence to indicate diffuse edema. Superimposed pneumonia not excluded bilaterally. 4. Continued followup is recommended. POS: [facility]
[2017-10-12] MEDS: Famotidine/PF 20 mg/2ml Vial SLOW IVP SCH (09:18)
[2017-10-12] MEDS: Heparin 5,000 UNITS/ML VIAL SC SCH ×2 (09:19→20:27)
[2017-10-12] MEDS: Saccharomyces boulardii 250 MG CAP PO SCH (09:20)
--- NOTE | 2017-10-12 10:44 | PDOC.PN ---
- Subjective Encounter Start Date: 10/12/17 Encounter Start Time: 10:00 Patient seen and examined. pt is awake on vent, nodding to questions, No overnight events - Objective Resuscitation Status: Resuscitation Status FULL:Full Resuscitation MAR Reviewed: Yes Vital Signs & Weight: Vital Signs (12 hours) Temp Pulse Resp BP Pulse Ox 10/12/17 10:37 83 25 H 100 10/12/17 10:00 28 H 10/12/17 08:00 98.8 F 106 H 34 H 100 10/12/17 06:24 101 H 109/64 100 10/12/17 06:21 124 H 31 H 100 10/12/17 06:00 24 H 10/12/17 04:00 97.9 F 43 H 10/12/17 03:11 99 125/66 10/12/17 02:00 26 H 10/12/17 00:00 97.8 F 34 H Weight Admit Weight 153 lb Weight 177 lb 7.554 oz Most Recent Monitor Data Heart Rate from ECG 106 NIBP 102/57 NIBP BP-Mean 73 Respiration from ECG 28 SpO2 100 I&O: 10/11/17 10/12/17 10/13/17 06:59 06:59 06:59 Intake Total 3981 2342.1 180 Output Total 277 85 0 Balance 3704 2257.1 180 Result Diagrams: 10/12/17 05:00 10/12/17 05:00 Radiology Reviewed by me: Yes (chest xray) EKG Reviewed by me: Yes (aflutter) Phys Exam - Physical Examination Constitutional: NAD on vent HEENT: PERRLA, moist MMs, sclera anicteric Neck: no JVD, supple Respiratory: no wheezing, no rhonchi right side rales Cardiovascular: RRR, no significant murmur tachycardia Gastrointestinal: soft, non-tender, no distention, positive bowel sounds Musculoskeletal: pulses present, edema present Neurological: moves all 4 limbs Lymphatic: no nodes Skin: no rash, normal turgor Dx/Plan (1) Atrial flutter with rapid ventricular response Code(s): I48.92 - UNSPECIFIED ATRIAL FLUTTER Status: Acute Comment: (2) Acidosis, metabolic, with respiratory acidosis Code(s): E87.4 - MIXED DISORDER OF ACID-BASE BALANCE Status: Acute (3) Acute kidney failure Status: Acute (4) Acute pneumothorax Code(s): J93.83 - OTHER PNEUMOTHORAX Status: Acute Comment: s/p chest tube placement (5) Acute respiratory failure with hypoxia Code(s): J96.01 - ACUTE RESPIRATORY FAILURE WITH HYPOXIA Status: Acute Comment: on ventilator (6) Demand ischemia of myocardium Code(s): I24.8 - OTHER FORMS OF ACUTE ISCHEMIC HEART DISEASE Status: Acute (7) Parapneumonic effusion Code(s): J18.9 - PNEUMONIA, UNSPECIFIED ORGANISM; J91.8 - PLEURAL EFFUSION IN OTHER CONDITIONS CLASSIFIED ELSEWHERE Status: Acute Comment: (8) Right lower lobe pneumonia Code(s): J18.1 - LOBAR PNEUMONIA, UNSPECIFIED ORGANISM Status: Acute Qualifiers: Pneumonia type: due to other aerobic Gram-negative bacteria Qualified Code( s): J15.6 - Pneumonia due to other Gram-negative bacteria (9) Sepsis with multi-organ dysfunction Code(s): A41.9 - SEPSIS, UNSPECIFIED ORGANISM; R65.20 - SEVERE SEPSIS WITHOUT SEPTIC SHOCK Status: Acute (10) Septic shock Code(s): A41.9 - SEPSIS, UNSPECIFIED ORGANISM; R65.21 - SEVERE SEPSIS WITH SEPTIC SHOCK Status: Acute (11) Shock liver Code(s): K72.00 - ACUTE AND SUBACUTE HEPATIC FAILURE WITHOUT COMA Status: Acute (12) Anemia, normocytic normochromic Code(s): D64.9 - ANEMIA, UNSPECIFIED Status: Chronic (13) CKD (chronic kidney disease) stage 3, GFR 30-59 ml/min Status: Chronic (14) HTN (hypertension) Code(s): I10 - ESSENTIAL (PRIMARY) HYPERTENSION Status: Chronic Qualifiers: Hypertension type: essential hypertension Qualified Code(s): I10 - Essential (primary) hypertension Comment: (15) Paroxysmal atrial fibrillation Code(s): I48.0 - PAROXYSMAL ATRIAL FIBRILLATION Status: Chronic (16) SCC (squamous cell carcinoma of lung) Code(s): C34.90 - MALIGNANT NEOPLASM OF UNSP PART OF UNSP BRONCHUS OR LUNG Status: Chronic Qualifiers: Laterality: right Qualified Code(s): C34.91 - Malignant neoplasm of unspecified part of right bronchus or lung (17) Subclinical hypothyroidism Code(s): E03.9 - HYPOTHYROIDISM, UNSPECIFIED Status: Chronic Comment: (18) Atrial fibrillation with RVR Code(s): I48.91 - UNSPECIFIED ATRIAL FIBRILLATION Status: Resolved Comment: (19) Protein-calorie malnutrition, moderate Code(s): E44.0 - MODERATE PROTEIN-CALORIE MALNUTRITION Status: Acute - Plan cont current plan of care, continue antibiotics * continue vent as per pulmonary * renal function still getting worse and LFT improving * continue cardizem drip * now off levophed * continue empiric antibiotics. * medication reviewed as below * symptomatic treatment Review of Systems - Review of Systems Other: unable to review as pt is intubated but mostly negative as pt nodds to no on questions - Medications/Allergies Allergies/Adverse Reactions: Allergies Allergy/AdvReac Type Severity Reaction Status Date / Time sulfamethoxazole Allergy Verified 03/16/15 17:15 [From Bactrim] trimethoprim [From Bactrim] Allergy Verified 03/16/15 17:15 Medications: Current Medications Acetaminophen (Tylenol) 650 mg PO Q4H PRN PRN Reason: Headache/Fever or Pain Al Hydroxide/Mg Hydroxide (Maalox) 30 ml PO Q6H PRN PRN Reason: Heartburn or Indigestion Albuterol/Ipratropium (Duoneb) 3 ml NEB [id number] [facility] [place] Last Admin: 10/12/17 10:37 Dose: 3 ml Artificial Tears (Tears Naturale) 0 drop EA EYE PRN PRN PRN Reason: Dry Eyes Famotidine (Pepcid) 20 mg SLOW IVP DAILY [facility] [place] Last Admin: 10/12/17 09:18 Dose: 20 mg Guaifenesin (Robitussin Sf) 200 mg PO Q4H PRN PRN Reason: Cough Heparin Sodium (Porcine) (Heparin) 5,000 units SC BID [facility] [place] Last Admin: 10/12/17 09:19 Dose: Not Given Hydralazine HCl (Apresoline) 10 mg SLOW IVP Q4H PRN PRN Reason: Systolic BP > 180 Norepinephrine Bitartrate (Levophed) 250 mls @ 0 mls/hr IVPB PRN PRN; Protocol ; Titrate PRN Reason: To maintain MAP > 65 Last Admin: 10/10/17 09:44 Dose: 250 mls Fentanyl (Fentanyl Cadd) 250 mls @ 0 mls/hr IVPB INF [place]; Titrate PRN Reason: Protocol Stop: 11/07/17 13:21 Fentanyl Citrate (Fentanyl Bolus) 250 mls @ 0 mls/hr IVPB PRN PRN; As Directed PRN Reason: Breakthrough pain Stop: 11/07/17 13:21 Sodium Chloride (1/2 Normal Saline) 1,000 mls @ 0 mls/hr IV .Q0M [place] PRN Reason: KVO Piperacillin Sod/Tazobactam (Sod 2.25 gm/ Sodium Chloride) 100 mls @ 200 mls/ hr IVPB 0400,1000,1600,2200 [facility] [place] Last Admin: 10/12/17 10:42 Dose: 100 mls Diltiazem HCl 125 mg/Miscellaneous Medication 1 each/ Sodium Chloride 125 mls @ 5 mls/hr IVPB INF [place]; As Directed PRN Reason: Protocol Last Admin: 10/12/17 00:32 Dose: 125 mls Loperamide HCl (Imodium) 2 mg PO PRN PRN PRN Reason: Diarrhea/Loose Stools Loratadine (Claritin) 10 mg PO DAILYPRN PRN PRN Reason: Sinus Symptoms Magnesium Hydroxide (Milk Of Magnesium) 30 ml PO DAILYPRN PRN PRN Reason: Constipation Methylprednisolone Sodium Succinate (Solu-Medrol) 40 mg IVP DAILY [facility] [place] Last Admin: 10/12/17 09:18 Dose: 40 mg Mineral Oil/White Petrolatum (Eucerin Cream) 0 gm TOP BIDPRN PRN PRN Reason: Dry Skin Ondansetron HCl (Zofran Odt) 4 mg PO Q6H PRN PRN Reason: Nausea/Vomiting Ondansetron HCl (Zofran) 4 mg IVP Q6H PRN PRN Reason: Nausea/Vomiting Phenol (Chloraseptic [place] 180 Ml Bot) 0 ml PO PRN PRN PRN Reason: Sore Throat Propofol (Diprivan) 1,000 mg IV INF PRN; Protocol PRN Reason: TO ACHIEVE H[place]IL[place] SCORE 2-3 Stop: 11/07/17 13:21 Last Admin: 10/12/17 07:37 Dose: 1,000 mg Saccharomyces Boulardii (Florastor) 250 mg PO DAILY [facility] [place] Last Admin: 10/12/17 09:20 Dose: 250 mg Senna (Senokot) 2 tab PO HSPRN PRN PRN Reason: Constipation Sodium Chloride ([place] Nasal [place] 0.65%) 0 ml EA NARE QIDPRN PRN PRN Reason: Nasal Congestion Sodium Chloride (Flush - Normal Saline) 10 ml IVF PRN PRN PRN Reason: Saline Flush
--- NOTE | 2017-10-12 12:13 | PRG ---
DATE OF SERVICE: 10/12/2017 SUBJECTIVE: Jeniffer Kirkpatrick is a 62-year-old female, intubated on the vent. X-ray shows bilateral inf iltrates. Chest tube in place. I's and O's in the last 24 hours have been 3981 in and 277 out. OBJECTIVE: CHEST: Extensive rhonchi and crackles. CARDIAC: Sinus tachycardia. ABDOMEN: Soft. LABORATORY DATA: White count 10,000, hemoglobin and hematocrit 9 and 30, and platelet count 74. BUN and creatinine 100 and 4.8. Liver function is elevated, AST and ALT. Respiratory culture has yeast. Biopsy shows squamous cell carcinoma. IMPRESSION: 1. Respiratory failure, squamous cell carcinoma of right lung. 2. Obstruction of the mainstem bronchus. 3. Spontaneous pneumothorax. 4. Severe deconditioning with increasing renal failure. All cultures are negative so far. Consider deescalating the antibiotics. Discussed with family about ongoing care. Prognosis is obviously grave. At this stage, she is not weanable too. One-half hour critical care time. We will follow.
--- NOTE | 2017-10-12 15:01 | PDOC.CTH ---
Cardiology Progress Note - Subjective She was seen and evaluated. She remains on the ventilator. Biopsy results indicated recurrent long cancer. Likely post obstructive PNA. Difficult situation for the pt. Renal function also has not recovered. She remains in NSR. - ROS not able to obtain ROS - Objective Vital Signs Temp Pulse Resp BP Pulse Ox 10/12/17 14:41 84 118/54 L 10/12/17 14:40 81 25 H 100 10/12/17 14:00 31 H 10/12/17 12:00 98.5 F 30 H 10/12/17 10:38 77 102/57 L 10/12/17 10:37 83 25 H 100 10/12/17 10:00 28 H 10/12/17 08:00 98.8 F 106 H 34 H 100 10/12/17 06:24 101 H 109/64 100 10/12/17 06:21 124 H 31 H 100 10/12/17 06:00 24 H 10/12/17 04:00 97.9 F 43 H 10/12/17 03:11 99 125/66 Admit Weight 153 lb Weight 177 lb 7.554 oz 10/11/17 10/12/17 10/13/17 06:59 06:59 06:59 Intake Total 3981 2342.1 210 Output Total 277 85 35 Balance 3704 2257.1 175 - Physical Examination General/Neuro: other: (some sedation on the ventilator.) Neck: no JVD present Lungs: other: (bilat. rhonchi.) Heart: RRR Abdomen: soft Extremities: other: (upper extremity edema.) - Labs Result Diagrams: 10/12/17 05:00 10/12/17 05:00 Troponin/CKMB CK-MB (CK-2) 3.8 ng/mL (0-6.6) 10/08/17 19:47 Troponin I 0.201 ng/mL (< 0.028) H 10/08/17 19:47 - Assessment/Plan Afib: remains in NSR. Continue present meds. Lung cancer- recurrent. Resp. failure due to post-obstuctive PNA. Renal failure_ acute, likely due to earlier sepsis. Poor prognosis.
[2017-10-13] MEDS: Propofol 1,000 MG/100 ML VIAL IV PRN ×3 (01:39→19:54)
[2017-10-13] MEDS: Piperacillin/Tazobactam 2.25 GM in Sodium Chloride 0.9% 100 ML IVPB SCH ×4 (02:59→21:01)
[2017-10-13 04:33] LABS: Band 6 % (5-11); Hematocrit 26.4 % (36.0-47.0); Mean Platelet Volume 10.1 fL (7.4-10.4); Neutrophil 91 % (42-75); Red Blood Cell (RBC) Count 3.05 mill/uL (4.20-5.40); White Blood Cell (WBC) Count 10.4 thou/uL (4.8-10.8)
[2017-10-13 04:44] LABS: ALT (SGPT) 234 U/L (8-55); AST (SGOT) 74 U/L (5-34); Alkaline Phosphatase 260 U/L (40-150); Anion Gap 23 mmol/L (10-20); Bilirubin, Total 0.8 mg/dL (0.2-1.2); Calc. Creatinine Clearance 14 mL/min (70-130); Calcium 6.7 mg/dL (7.8-10.44); Carbon Dioxide 27 mmol/L (23-31); Chloride 97 mmol/L (98-107); Estimated GFR-MDRD 8; Protein, Total 4.9 g/dL (6.0-8.3)
[2017-10-13 04:55] LABS: BUN (Urea Nitrogen) 119 mg/dL (9.8-20.1)
[2017-10-13 08:02] LABS: Oxyhemoglobin 92.8 % (94.0-97.0); Sodium 140 mmol/L (135-148)
[2017-10-13 08:07] LABS: Mechanical Tidal Volume 410 ml; Mode SIMV/PSV; Modified Allen's Test NOT DONE; Pressure Support 23 cmH2O; Vent YES
[2017-10-13] MEDS: Famotidine/PF 20 mg/2ml Vial SLOW IVP SCH (09:27)
[2017-10-13] MEDS: Saccharomyces boulardii 250 MG CAP PO SCH (09:28)
[2017-10-13] MEDS ORDERED: Sodium Chloride 0.45% 1,000 ML IV SCH (09:45)
[2017-10-13] MEDS: Fentanyl 20 MCG/ML 250 ML IVPB SCH (10:15)
[2017-10-13] MEDS: Albumin 25% 25 GM/100 ML BOT IVPB SCH ×3 (11:21→23:24)
[2017-10-13] MEDS: Dextrose 5 %-0.45 % NaCl 1,000 ML IV SCH (11:22)
--- NOTE | 2017-10-13 11:34 | PDOC.PN ---
- Subjective Encounter Start Date: 10/13/17 Encounter Start Time: 09:45 pt is intubated, sedated, Patient seen and examined. No overnight events - Objective Resuscitation Status: Resuscitation Status FULL:Full Resuscitation MAR Reviewed: Yes Vital Signs & Weight: Vital Signs (12 hours) Temp Pulse Resp BP Pulse Ox 10/13/17 10:00 34 H 10/13/17 08:00 98.6 F 33 H 10/13/17 07:48 86 128/57 L 96 10/13/17 07:46 86 27 H 97 10/13/17 06:00 30 H 10/13/17 04:00 98.1 F 31 H 10/13/17 02:49 82 101/56 L 10/13/17 02:00 27 H 10/13/17 00:00 98.4 F Weight Admit Weight 153 lb Weight 184 lb 4.903 oz Most Recent Monitor Data Heart Rate from ECG 90 NIBP 151/70 NIBP BP-Mean 80 Respiration from ECG 30 SpO2 92 I&O: 10/12/17 10/13/17 10/14/17 06:59 06:59 06:59 Intake Total 2342.1 2493.7 120 Output Total 85 1345 0 Balance 2257.1 1148.7 120 Result Diagrams: 10/13/17 03:48 10/13/17 03:48 Radiology Reviewed by me: Yes (chest xray) EKG Reviewed by me: Yes (afib) Phys Exam - Physical Examination Constitutional: NAD HEENT: PERRLA, moist MMs, sclera anicteric Neck: no JVD, supple central line+ Respiratory: no wheezing, no rhonchi bilateral coarse sound chest tube+ Cardiovascular: no significant murmur, irregular Gastrointestinal: soft, no distention, positive bowel sounds faustin+, rectal tube+ Musculoskeletal: pulses present, edema present Lymphatic: no nodes Skin: no rash, normal turgor Dx/Plan (1) Atrial flutter with rapid ventricular response Code(s): I48.92 - UNSPECIFIED ATRIAL FLUTTER Status: Acute Comment: (2) Acidosis, metabolic, with respiratory acidosis Code(s): E87.4 - MIXED DISORDER OF ACID-BASE BALANCE Status: Acute (3) Acute kidney failure Status: Acute (4) Acute pneumothorax Code(s): J93.83 - OTHER PNEUMOTHORAX Status: Acute Comment: s/p chest tube placement (5) Acute respiratory failure with hypoxia Code(s): J96.01 - ACUTE RESPIRATORY FAILURE WITH HYPOXIA Status: Acute Comment: on ventilator (6) Demand ischemia of myocardium Code(s): I24.8 - OTHER FORMS OF ACUTE ISCHEMIC HEART DISEASE Status: Acute (7) Parapneumonic effusion Code(s): J18.9 - PNEUMONIA, UNSPECIFIED ORGANISM; J91.8 - PLEURAL EFFUSION IN OTHER CONDITIONS CLASSIFIED ELSEWHERE Status: Acute Comment: (8) Right lower lobe pneumonia Code(s): J18.1 - LOBAR PNEUMONIA, UNSPECIFIED ORGANISM Status: Acute Qualifiers: Pneumonia type: due to other aerobic Gram-negative bacteria Qualified Code( s): J15.6 - Pneumonia due to other Gram-negative bacteria (9) Sepsis with multi-organ dysfunction Code(s): A41.9 - SEPSIS, UNSPECIFIED ORGANISM; R65.20 - SEVERE SEPSIS WITHOUT SEPTIC SHOCK Status: Acute (10) Septic shock Code(s): A41.9 - SEPSIS, UNSPECIFIED ORGANISM; R65.21 - SEVERE SEPSIS WITH SEPTIC SHOCK Status: Acute (11) Shock liver Code(s): K72.00 - ACUTE AND SUBACUTE HEPATIC FAILURE WITHOUT COMA Status: Acute (12) Anemia, normocytic normochromic Code(s): D64.9 - ANEMIA, UNSPECIFIED Status: Chronic (13) CKD (chronic kidney disease) stage 3, GFR 30-59 ml/min Status: Chronic (14) HTN (hypertension) Code(s): I10 - ESSENTIAL (PRIMARY) HYPERTENSION Status: Chronic Qualifiers: Hypertension type: essential hypertension Qualified Code(s): I10 - Essential (primary) hypertension Comment: (15) Paroxysmal atrial fibrillation Code(s): I48.0 - PAROXYSMAL ATRIAL FIBRILLATION Status: Chronic (16) SCC (squamous cell carcinoma of lung) Code(s): C34.90 - MALIGNANT NEOPLASM OF UNSP PART OF UNSP BRONCHUS OR LUNG Status: Chronic Qualifiers: Laterality: right Qualified Code(s): C34.91 - Malignant neoplasm of unspecified part of right bronchus or lung (17) Subclinical hypothyroidism Code(s): E03.9 - HYPOTHYROIDISM, UNSPECIFIED Status: Chronic Comment: (18) Atrial fibrillation with RVR Code(s): I48.91 - UNSPECIFIED ATRIAL FIBRILLATION Status: Resolved Comment: (19) Protein-calorie malnutrition, moderate Code(s): E44.0 - MODERATE PROTEIN-CALORIE MALNUTRITION Status: Acute (20) Thrombocytopenia Code(s): D69.6 - THROMBOCYTOPENIA, UNSPECIFIED Status: Acute (21) DIC (disseminated intravascular coagulation) Code(s): D65 - DISSEMINATED INTRAVASCULAR COAGULATION Status: Acute - Plan cont current plan of care, continue antibiotics, respiratory therapy * DC heparin for thormbocytopenia * consult nephrology for worsening renal function * continue empiric antibiotic as per renal dose. * vent as per pulmonary * prognosis is poor * medication reviewed as below * symptomatic treatment * supportive care Review of Systems - Review of Systems Other: unable to review as pt is intubated, sedated - Medications/Allergies Allergies/Adverse Reactions: Allergies Allergy/AdvReac Type Severity Reaction Status Date / Time sulfamethoxazole Allergy Verified 03/16/15 17:15 [From Bactrim] trimethoprim [From Bactrim] Allergy Verified 03/16/15 17:15 Medications: Current Medications Acetaminophen (Tylenol) 650 mg PO Q4H PRN PRN Reason: Headache/Fever or Pain Al Hydroxide/Mg Hydroxide (Maalox) 30 ml PO Q6H PRN PRN Reason: Heartburn or Indigestion Albumin Human (Albumin 25%) 25 gm IVPB Q6HR [facility] Stop: 10/16/17 06:01 Last Admin: 10/13/17 11:21 Dose: 25 gm Albuterol/Ipratropium (Duoneb) 3 ml NEB [id number] [facility] Last Admin: 10/13/17 07:46 Dose: 3 ml Artificial Tears (Tears Naturale) 0 drop EA EYE PRN PRN PRN Reason: Dry Eyes Famotidine (Pepcid) 20 mg SLOW IVP DAILY [facility] Last Admin: 10/13/17 09:27 Dose: 20 mg Guaifenesin (Robitussin Sf) 200 mg PO Q4H PRN PRN Reason: Cough Hydralazine HCl (Apresoline) 10 mg SLOW IVP Q4H PRN PRN Reason: Systolic BP > 180 Norepinephrine Bitartrate (Levophed) 250 mls @ 0 mls/hr IVPB PRN PRN; Protocol ; Titrate PRN Reason: To maintain MAP > 65 Last Admin: 10/10/17 09:44 Dose: 250 mls Fentanyl (Fentanyl Cadd) 250 mls @ 0 mls/hr IVPB INF [facility]; Titrate PRN Reason: Protocol Stop: 11/07/17 13:21 Last Admin: 10/13/17 10:15 Dose: 250 mls Fentanyl Citrate (Fentanyl Bolus) 250 mls @ 0 mls/hr IVPB PRN PRN; As Directed PRN Reason: Breakthrough pain Stop: 11/07/17 13:21 Piperacillin Sod/Tazobactam (Sod 2.25 gm/ Sodium Chloride) 100 mls @ 200 mls/ hr IVPB 0400,1000,1600,2200 [facility] Last Admin: 10/13/17 09:28 Dose: 100 mls Diltiazem HCl 125 mg/Miscellaneous Medication 1 each/ Sodium Chloride 125 mls @ 5 mls/hr IVPB INF [facility]; As Directed PRN Reason: Protocol Last Admin: 10/12/17 22:33 Dose: 125 mls Dextrose/Sodium Chloride (D5 1/2 Ns) 1,000 mls @ 50 mls/hr IV .Q20H [facility] Last Admin: 10/13/17 11:22 Dose: 1,000 mls Loperamide HCl (Imodium) 2 mg PO PRN PRN PRN Reason: Diarrhea/Loose Stools Loratadine (Claritin) 10 mg PO DAILYPRN PRN PRN Reason: Sinus Symptoms Magnesium Hydroxide (Milk Of Magnesium) 30 ml PO DAILYPRN PRN PRN Reason: Constipation Methylprednisolone Sodium Succinate (Solu-Medrol) 40 mg IVP DAILY [facility] Last Admin: 10/13/17 09:27 Dose: 40 mg Mineral Oil/White Petrolatum (Eucerin Cream) 0 gm TOP BIDPRN PRN PRN Reason: Dry Skin Ondansetron HCl (Zofran Odt) 4 mg PO Q6H PRN PRN Reason: Nausea/Vomiting Ondansetron HCl (Zofran) 4 mg IVP Q6H PRN PRN Reason: Nausea/Vomiting Phenol (Chloraseptic [place] 180 Ml Bot) 0 ml PO PRN PRN PRN Reason: Sore Throat Propofol (Diprivan) 1,000 mg IV INF PRN; Protocol PRN Reason: TO ACHIEVE [place]IL[place] SCORE 2-3 Stop: 11/07/17 13:21 Last Admin: 10/13/17 06:47 Dose: 1,000 mg Saccharomyces Boulardii (Florastor) 250 mg PO DAILY [facility] Last Admin: 10/13/17 09:28 Dose: 250 mg Senna (Senokot) 2 tab PO HSPRN PRN PRN Reason: Constipation Sodium Chloride ([place] Nasal [place] 0.65%) 0 ml EA NARE QIDPRN PRN PRN Reason: Nasal Congestion Sodium Chloride (Flush - Normal Saline) 10 ml IVF PRN PRN PRN Reason: Saline Flush
--- NOTE | 2017-10-13 12:28 | CON ---
DATE OF CONSULTATION: 10/13/2017 HISTORY OF PRESENT ILLNESS: Ms. Kirkpatrick is a 62-year-old white female with known history of lung ca ncer, status post chemotherapy, and was admitted due to shortness of breath with productive cough. D uring this hospitalization, her clinical status has worsened. She has gone to cardiac arrest x3 and she had to be resuscitated. We are now being consulted due to her worsening renal dysfunction as wel l as decreased urine output. REVIEW OF SYSTEMS: Not obtainable since the patient is currently intubated and on ventilator support . PAST MEDICAL HISTORY: Includes the history of lung cancer, status post chemotherapy; atrial fibrilla tion; status post pneumonia; ? of COPD; hypertension; chronic renal disease - stage 2. PAST SURGICAL HISTORY: 1. Recently status post hysterectomy. 2. Status post MediPort placement. 3. Status post upper GI endoscopy. 4. Recently status post intubation. SOCIAL HISTORY: The patient is . Remote history of smoking; quit in 2014. No IV drug abuse . No alcohol use. 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 ALLERGIES: Unknown. TRAUMA: None. IMMUNIZATIONS: Up-to-date. HOSPITALIZATIONS: Please see past medical history. PHYSICAL EXAMINATION: VITAL SIGNS: Blood pressure 134/55 with a heart rate of 86, respiratory rate 33, pulse ox 96%. GENERAL: The patient is arousable, intubated on ventilator with support. SKIN: Adequate turgor. HEENT: Slightly pale conjunctivae, anicteric sclerae. NECK: No neck mass, no carotid bruits, no JVD. CHEST: No deformities. LUNGS: Decreased breath sounds. HEART: Normal sinus rhythm. No murmur, no gallops, no rubs. ABDOMEN: Globular, soft, nontender, no masses. EXTREMITIES: No edema, no deformities. NEUROLOGICAL EXAM: Awake. MEDICATIONS: Medications of 10/13/2017 were reviewed. LABORATORY DATA: Laboratories of 10/13/2017, sodium 143, potassium 3.7, chloride 97, carbon dioxide 27, BUN 119, creatinine of 5.41. Further review of her creatinine shows the followin10/12/2017, 4.89; 10/11/2017, 4.23; 10/08/2017, 2.81; 09/13/2017, creatinine was 0.77. White count is noted at 1 0.4, hemoglobin 8.6, hematocrit 26.4. Renal ultrasound of 10/08/2017 showed small right renal cortical cyst. ASSESSMENT AND PLAN: 1. Acute kidney injury - I suspect from the clinical history and presentation that this most likely is secondary to some degree of ischemic acute tubular necrosis. We will be reviewing a urinalysis. We will time when we will start dialyzing her. I feel that at this moment there is no indication for any dialytic intervention. I agree with gentle volume repletion. In addition, I would start salt p oor albumin 25 grams IV q.6 hours x3 days. If renal function further worsens, we may need to conside r dialytic intervention with this patient. 2. Sepsis, on empiric IV antibiotics. 3. Lung cancer. Continue supportive care. We will recheck a urinalysis today.
--- NOTE | 2017-10-13 14:47 | PRG ---
DATE OF SERVICE: 10/13/2017 SUBJECTIVE: Ms. Kirkpatrick remains intubated on the vent on Diprivan. OBJECTIVE: VITAL SIGNS: Pulse of 90, blood pressure 130/54, saturation 98%, respirations 30. I's and O's in th e last 24 hours have been 2493 in and 134 out. CHEST: Extensive rhonchi and crackles. CARDIAC: Sinus tachycardia. ABDOMEN: Soft. NEUROLOGICAL: Encephalopathic. LABORATORY DATA: White count 10,000, H&H is 8 and 26, platelet count is 66, pO2 67, PCO2 40, pH 7.42 , rate of 17, 30% FIO2, 410 tidal volume. BUN and creatinine are 190 and 5.4. AST and ALT are eleva olga, 234 and 260. X-RAY FINDINGS: No recent chest x-ray was taken, but x-ray as of yesterday shows bilateral infiltrat es. IMPRESSION: 1. Respiratory failure. 2. Chronic obstructive pulmonary disease. 3. Squamous cell carcinoma. 4. Azotemia. 5. Left pneumothorax. PLAN: Patient is clearly not weanable at this stage. I have added half normal saline at 50 an hour to control her azotemia and appears to be prerenal, input from Nephrology pending. Continue antibiot ics, steroids. Vent is being adjusted. Not weanable. One-half hour critical care time.
[2017-10-13] MEDS: Diltiazem HCl 125 MG, Admixture Fee 1 EACH in Sodium Chloride 0.9% 100 ML IVPB SCH (23:24)
[2017-10-14] MEDS: Propofol 1,000 MG/100 ML VIAL IV PRN ×2 (01:48→12:02)
[2017-10-14] MEDS: Piperacillin/Tazobactam 2.25 GM in Sodium Chloride 0.9% 100 ML IVPB SCH ×4 (03:08→21:49)
[2017-10-14 04:19] LABS: ALT (SGPT) 138 U/L (8-55); AST (SGOT) 36 U/L (5-34); Alkaline Phosphatase 184 U/L (40-150); Anion Gap 24 mmol/L (10-20); Calc. Creatinine Clearance 13 mL/min (70-130); Carbon Dioxide 25 mmol/L (23-31); Chloride 95 mmol/L (98-107); Estimated GFR-MDRD 7; Globulin 2.5 g/dL (2.4-3.5); Protein, Total 5.4 g/dL (6.0-8.3)
[2017-10-14 04:30] LABS: BUN (Urea Nitrogen) 137 mg/dL (9.8-20.1)
[2017-10-14] MEDS: Albumin 25% 25 GM/100 ML BOT IVPB SCH ×4 (05:26→23:50)
[2017-10-14 05:55] LABS: Band 1 % (5-11); Mean Platelet Volume 10.4 fL (7.4-10.4); Neutrophil 84 % (42-75); Red Blood Cell (RBC) Count 2.67 mill/uL (4.20-5.40); White Blood Cell (WBC) Count 7.4 thou/uL (4.8-10.8)
[2017-10-14 08:11] LABS: Mechanical Tidal Volume 410 ml; Oxyhemoglobin 86.2 % (94.0-97.0); Pressure Support 23 cmH2O; Sodium 138 mmol/L (135-148); Vent YES
[2017-10-14 08:12] LABS: Mode SIMV/PSV
--- NOTE | 2017-10-14 09:14 | RAD ---
PORTABLE CHEST: HISTORY: CCU and ventilator followup with dyspnea. COMPARISON: 10/12/17. FINDINGS: ET tube and NG tube remain in place. Bilateral infiltrates are again seen. Right chest tube is unch anged. Right apical opacity is unchanged. Vascular engorgement. IMPRESSION: Chest findings appear stable from 10/12/17. POS: [facility]
[2017-10-14] MEDS ORDERED: Clopidogrel Bisulfate 75 MG TAB ONE (09:24)
[2017-10-14] MEDS: Famotidine/PF 20 mg/2ml Vial SLOW IVP SCH (09:28)
[2017-10-14] MEDS: Saccharomyces boulardii 250 MG CAP PO SCH (09:29)
[2017-10-14] MEDS ORDERED: Furosemide 100 MG/10 ML VIAL SLOW IVP SCH (10:30)
[2017-10-14] MEDS: Dextrose 5 %-0.45 % NaCl 1,000 ML IV SCH (10:39)
--- NOTE | 2017-10-14 10:56 | PDOC.PN ---
- Subjective Encounter Start Date: 10/14/17 Encounter Start Time: 09:40 pt is intubated, Patient seen and examined. No overnight events - Objective Resuscitation Status: Resuscitation Status FULL:Full Resuscitation MAR Reviewed: Yes Vital Signs & Weight: Vital Signs (12 hours) Temp Pulse Resp BP Pulse Ox 10/14/17 10:43 79 152/63 H 10/14/17 10:00 21 H 10/14/17 08:00 23 H 10/14/17 07:46 97.6 F 81 23 H 93 L 10/14/17 07:12 81 139/54 L 10/14/17 07:00 97.6 F 10/14/17 06:00 24 H 10/14/17 04:00 98.1 F 24 H 10/14/17 02:41 78 24 H 96 10/14/17 02:00 23 H 10/14/17 00:00 27 H 10/13/17 23:56 98.5 F Weight Admit Weight 153 lb Weight 189 lb 9.561 oz Most Recent Monitor Data Heart Rate from ECG 85 NIBP 152/63 NIBP BP-Mean 112 Respiration from ECG 24 SpO2 97 I&O: 10/13/17 10/14/17 10/15/17 06:59 06:59 06:59 Intake Total 2493.7 3700.6 Output Total 1345 814 20 Balance 1148.7 2886.6 -20 Result Diagrams: 10/14/17 03:40 10/14/17 03:40 Radiology Reviewed by me: Yes (chest xray) EKG Reviewed by me: Yes (nsr) Phys Exam - Physical Examination Constitutional: NAD intubated HEENT: PERRLA, sclera anicteric Neck: no JVD, supple Respiratory: no wheezing, no rales, no rhonchi chest tube Cardiovascular: RRR, no significant murmur, no rub Gastrointestinal: soft, no distention, positive bowel sounds right groin central line, faustin, rectal tube Musculoskeletal: pulses present, edema present edema left UE more than on right Lymphatic: no nodes Skin: no rash, normal turgor Dx/Plan (1) Atrial flutter with rapid ventricular response Code(s): I48.92 - UNSPECIFIED ATRIAL FLUTTER Status: Acute Comment: (2) Acidosis, metabolic, with respiratory acidosis Code(s): E87.4 - MIXED DISORDER OF ACID-BASE BALANCE Status: Acute (3) Acute kidney failure Status: Acute (4) Acute pneumothorax Code(s): J93.83 - OTHER PNEUMOTHORAX Status: Acute Comment: s/p chest tube placement (5) Acute respiratory failure with hypoxia Code(s): J96.01 - ACUTE RESPIRATORY FAILURE WITH HYPOXIA Status: Acute Comment: on ventilator (6) Demand ischemia of myocardium Code(s): I24.8 - OTHER FORMS OF ACUTE ISCHEMIC HEART DISEASE Status: Acute (7) Parapneumonic effusion Code(s): J18.9 - PNEUMONIA, UNSPECIFIED ORGANISM; J91.8 - PLEURAL EFFUSION IN OTHER CONDITIONS CLASSIFIED ELSEWHERE Status: Acute Comment: (8) Right lower lobe pneumonia Code(s): J18.1 - LOBAR PNEUMONIA, UNSPECIFIED ORGANISM Status: Acute Qualifiers: Pneumonia type: due to other aerobic Gram-negative bacteria Qualified Code( s): J15.6 - Pneumonia due to other Gram-negative bacteria (9) Sepsis with multi-organ dysfunction Code(s): A41.9 - SEPSIS, UNSPECIFIED ORGANISM; R65.20 - SEVERE SEPSIS WITHOUT SEPTIC SHOCK Status: Acute (10) Septic shock Code(s): A41.9 - SEPSIS, UNSPECIFIED ORGANISM; R65.21 - SEVERE SEPSIS WITH SEPTIC SHOCK Status: Acute (11) Shock liver Code(s): K72.00 - ACUTE AND SUBACUTE HEPATIC FAILURE WITHOUT COMA Status: Acute (12) Anemia, normocytic normochromic Code(s): D64.9 - ANEMIA, UNSPECIFIED Status: Chronic (13) CKD (chronic kidney disease) stage 3, GFR 30-59 ml/min Status: Chronic (14) HTN (hypertension) Code(s): I10 - ESSENTIAL (PRIMARY) HYPERTENSION Status: Chronic Qualifiers: Hypertension type: essential hypertension Qualified Code(s): I10 - Essential (primary) hypertension Comment: (15) Paroxysmal atrial fibrillation Code(s): I48.0 - PAROXYSMAL ATRIAL FIBRILLATION Status: Chronic (16) SCC (squamous cell carcinoma of lung) Code(s): C34.90 - MALIGNANT NEOPLASM OF UNSP PART OF UNSP BRONCHUS OR LUNG Status: Chronic Qualifiers: Laterality: right Qualified Code(s): C34.91 - Malignant neoplasm of unspecified part of right bronchus or lung (17) Subclinical hypothyroidism Code(s): E03.9 - HYPOTHYROIDISM, UNSPECIFIED Status: Chronic Comment: (18) Atrial fibrillation with RVR Code(s): I48.91 - UNSPECIFIED ATRIAL FIBRILLATION Status: Resolved Comment: (19) Protein-calorie malnutrition, moderate Code(s): E44.0 - MODERATE PROTEIN-CALORIE MALNUTRITION Status: Acute - Plan cont current plan of care, continue antibiotics, respiratory therapy * renal function is getting worse * nephrology following * medication reviewed as below * symptomatic treatment * vent per pulmonary * may need dialysis * continue renal adjusted dose of antibiotics as per below. Review of Systems - Review of Systems Other: unable to review as pt is intubated - Medications/Allergies Allergies/Adverse Reactions: Allergies Allergy/AdvReac Type Severity Reaction Status Date / Time sulfamethoxazole Allergy Verified 03/16/15 17:15 [From Bactrim] trimethoprim [From Bactrim] Allergy Verified 03/16/15 17:15 Medications: Current Medications Acetaminophen (Tylenol) 650 mg PO Q4H PRN PRN Reason: Headache/Fever or Pain Al Hydroxide/Mg Hydroxide (Maalox) 30 ml PO Q6H PRN PRN Reason: Heartburn or Indigestion Albumin Human (Albumin 25%) 25 gm IVPB Q6HR [facility] Stop: 10/16/17 06:01 Last Admin: 10/14/17 05:26 Dose: 25 gm Albuterol/Ipratropium (Duoneb) 3 ml NEB [id number] [facility] Last Admin: 10/14/17 10:42 Dose: 3 ml Artificial Tears (Tears Naturale) 0 drop EA EYE PRN PRN PRN Reason: Dry Eyes Famotidine (Pepcid) 20 mg SLOW IVP DAILY [facility] Last Admin: 10/14/17 09:28 Dose: 20 mg Furosemide (Lasix) 80 mg SLOW IVP 1030 [facility] Stop: 10/14/17 13:00 Last Admin: 10/14/17 10:40 Dose: 80 mg Guaifenesin (Robitussin Sf) 200 mg PO Q4H PRN PRN Reason: Cough Hydralazine HCl (Apresoline) 10 mg SLOW IVP Q4H PRN PRN Reason: Systolic BP > 180 Norepinephrine Bitartrate (Levophed) 250 mls @ 0 mls/hr IVPB PRN PRN; Protocol ; Titrate PRN Reason: To maintain MAP > 65 Last Admin: 10/10/17 09:44 Dose: 250 mls Fentanyl (Fentanyl Cadd) 250 mls @ 0 mls/hr IVPB INF [facility]; Titrate PRN Reason: Protocol Stop: 11/07/17 13:21 Last Admin: 10/13/17 10:15 Dose: 250 mls Fentanyl Citrate (Fentanyl Bolus) 250 mls @ 0 mls/hr IVPB PRN PRN; As Directed PRN Reason: Breakthrough pain Stop: 11/07/17 13:21 Piperacillin Sod/Tazobactam (Sod 2.25 gm/ Sodium Chloride) 100 mls @ 200 mls/ hr IVPB 0400,1000,1600,2200 [facility] Last Admin: 10/14/17 09:28 Dose: 100 mls Diltiazem HCl 125 mg/Miscellaneous Medication 1 each/ Sodium Chloride 125 mls @ 5 mls/hr IVPB INF [facility]; As Directed PRN Reason: Protocol Last Admin: 10/13/17 23:24 Dose: 125 mls Dextrose/Sodium Chloride (D5 1/2 Ns) 1,000 mls @ 50 mls/hr IV .Q20H [facility] Last Admin: 10/14/17 10:39 Dose: 1,000 mls Cefepime HCl 0.5 gm/ Sterile (Water) 10 mls @ 0 mls/hr IVPB 1100,2300 [facility] Loperamide HCl (Imodium) 2 mg PO PRN PRN PRN Reason: Diarrhea/Loose Stools Loratadine (Claritin) 10 mg PO DAILYPRN PRN PRN Reason: Sinus Symptoms Magnesium Hydroxide (Milk Of Magnesium) 30 ml PO DAILYPRN PRN PRN Reason: Constipation Methylprednisolone Sodium Succinate (Solu-Medrol) 40 mg IVP DAILY [facility] Last Admin: 10/14/17 09:29 Dose: 40 mg Mineral Oil/White Petrolatum (Eucerin Cream) 0 gm TOP BIDPRN PRN PRN Reason: Dry Skin Ondansetron HCl (Zofran Odt) 4 mg PO Q6H PRN PRN Reason: Nausea/Vomiting Ondansetron HCl (Zofran) 4 mg IVP Q6H PRN PRN Reason: Nausea/Vomiting Phenol (Chloraseptic [place] 180 Ml Bot) 0 ml PO PRN PRN PRN Reason: Sore Throat Propofol (Diprivan) 1,000 mg IV INF PRN; Protocol PRN Reason: TO ACHIEVE [place] SCORE 2-3 Stop: 11/07/17 13:21 Last Admin: 10/14/17 01:48 Dose: 1,000 mg Saccharomyces Boulardii (Florastor) 250 mg PO DAILY [facility] Last Admin: 10/14/17 09:29 Dose: 250 mg Senna (Senokot) 2 tab PO HSPRN PRN PRN Reason: Constipation Sodium Chloride ([place] Nasal [place] 0.65%) 0 ml EA NARE QIDPRN PRN PRN Reason: Nasal Congestion Sodium Chloride (Flush - Normal Saline) 10 ml IVF PRN PRN PRN Reason: Saline Flush
[2017-10-14] MEDS: CEFEPIME IVPB SCH ×2 (11:23→23:09)
[2017-10-14] MEDS: STERILE WATER IVPB SCH ×2 (11:23→23:09)
[2017-10-14 14:51] LABS: Bilirubin Negative (Negative); Blood, Urine Large (Negative); Glucose, Urine (Dipstick) Negative (Negative); Ketone, Urine Negative (Negative); Nitrite Negative (Negative); Protein, Urine (Dipstick) 100 mg/dL (Neg-Trace); Urobilinogen 0.2 mg/dL (0.2-1.0)
[2017-10-14 14:55] LABS: Bacteria/HPF None Seen HPF (None Seen); Squamous Epithelial 0-3 HPF (0-3)
[2017-10-14 15:06] LABS: Yeast-All Forms 4+ HPF (None Seen)
[2017-10-14 15:07] LABS: Hyaline Casts/LPF 0-3 HYALINE CAST LPF (0-3 Hyaline)
--- NOTE | 2017-10-14 16:25 | PRG ---
DATE OF SERVICE: 10/14/2017 SUBJECTIVE: Ms. Kirkpatrick is on low dose Diprivan. OBJECTIVE: GENERAL: She is awake and responsive. VITAL SIGNS: Pulse 86, blood pressure 140/65, respirations 24, I's and O's 2493 in and 1345 out. CHEST: Reveals extensive rhonchi and crackles. CARDIAC: Normal sinus rhythm. ABDOMEN: Soft. NEUROLOGIC: She moves all 4 extremities. LABORATORY AND IMAGING DATA: White count 10,000, hemoglobin and hematocrit 7 and 23, platelet count is low at 55, 84 segs and 1 band. A pO2 is 65, pCO2 is 52, pH 7.29, on a rate of 12, 30% FiO2, PEEP of 5. BUN and creatinine are 135 and 5.9. X-ray shows worsening left-sided infiltrate. IMPRESSION: 1. Left-sided pneumonia. 2. squamous cell carcinoma. 3. Severe deconditioning. 4. Renal failure. PLAN: She is clearly not weanable at this stage. She is still getting albumin scheduled per Dr. Roman . Continue slow hydration. I will add another gram-negative antibiotic to her present regime even t yifan all cultures were negative. One-half hour critical care time.
--- NOTE | 2017-10-14 16:46 | PRG ---
DATE OF SERVICE: 10/14/2017 RENAL MEDICINE SUBJECTIVE: Ms. Kirkpatrick is a 62-year-old white female being followed by the Renal Service for acute kidney injury - our feeling is that she may have a superimposed acute tubular necrosis. She has und ergone a cardiac arrest and had undergone CPR. She has also episodes of hypotension. Currently, the renal function is relatively unchanged. There is no significant improvement. Her creatinine in the last 24 hours has gone up from 5.41 to her most recent value of 5.99. I had a discussion with the n iece about considering dialysis in the next 24-48 hours. She states that the daughter will decide on this. I left my cell phone with the nurse for the daughter to call me. OBJECTIVE: VITAL SIGNS: Blood pressure is 144/65, heart rate 85, respiratory rate 23, pulse ox 91%. GENERAL: The patient is sedated, intubated and on ventilator support. SKIN: Adequate turgor. HEENT: She has pale conjunctivae. Anicteric sclerae. NECK: No neck mass, no carotid bruits, no JVD. CHEST: No deformities. LUNGS: Decreased breath sounds. HEART: Normal sinus rhythm. No murmur, no gallops, no rubs. ABDOMEN: Globular, soft, nontender, no masses. EXTREMITIES: No edema, no deformities. MEDICATIONS: Medications of 10/14/2017 reviewed. LABORATORY DATA: Laboratories of 10/14/2017, white count 7.4, hemoglobin 7.5. Sodium 140, potassium 4.2, chloride 95, carbon dioxide 25, BUN 137, creatinine 5.99, glucose 159, calcium 7.0, AST 36, ALT 138, alkaline phosphatase 134. ASSESSMENT AND PLAN: 1. Acute kidney injury -- I suspect an underlying acute tubular necrosis. We will review again repe at urinalysis today. Continue supportive care. The family at the present are undecided whether to p roceed with dialysis. I will await the call of the daughter to proceed with dialysis if needed. I m ost likely will proceed with her dialysis in the next 24-48 hours. Overall, prognosis remains guarde d with this patient. 2. Sepsis -- on empiric IV antibiotics. 3. Anemia, p.r.n. blood transfusion. Currently receiving IV albumin in hope that we can help perfus e the kidneys . Overall, agree with current management.
[2017-10-14] MEDS: Diltiazem HCl 125 MG, Admixture Fee 1 EACH in Sodium Chloride 0.9% 100 ML IVPB SCH (20:16)
[2017-10-15] MEDS: Piperacillin/Tazobactam 2.25 GM in Sodium Chloride 0.9% 100 ML IVPB SCH ×4 (04:22→21:04)
[2017-10-15] MEDS: Dextrose 5 %-0.45 % NaCl 1,000 ML IV SCH (04:22)
[2017-10-15 04:40] LABS: ALT (SGPT) 80 U/L (8-55); AST (SGOT) 17 U/L (5-34); Alkaline Phosphatase 102 U/L (40-150); Anion Gap 26 mmol/L (10-20); Calc. Creatinine Clearance 12 mL/min (70-130); Carbon Dioxide 24 mmol/L (23-31); Chloride 95 mmol/L (98-107); Estimated GFR-MDRD 7; Globulin 2.1 g/dL (2.4-3.5); Protein, Total 5.7 g/dL (6.0-8.3)
[2017-10-15 04:42] LABS: Band 3 % (5-11); Hematocrit 26.7 % (36.0-47.0); Mean Platelet Volume 9.8 fL (7.4-10.4); Neutrophil 94 % (42-75); Red Blood Cell (RBC) Count 3.01 mill/uL (4.20-5.40); White Blood Cell (WBC) Count 8.7 thou/uL (4.8-10.8)
[2017-10-15 04:51] LABS: BUN (Urea Nitrogen) 154 mg/dL (9.8-20.1)
[2017-10-15] MEDS: Albumin 25% 25 GM/100 ML BOT IVPB SCH ×2 (06:03→12:00)
[2017-10-15 06:33] VITALS: BMI 32.8
[2017-10-15 07:42] VITALS: TEMP 97.4
--- NOTE | 2017-10-15 07:47 | RAD ---
ONE VIEW CHEST: HISTORY: Respiratory distress. Ventilated patient. COMPARISON: 10/14/17. FINDINGS: Portable semiupright chest radiograph demonstrates an endotracheal tube at the level of the clavicles . Nasogastric tube extends beyond the diaphragm. Distal tip is not seen. Right-sided chest tube is identified. There is left-sided subcutaneous emphysema. No obvious left-sided pneumothorax. Trace right-sided pneumothorax at the lung bases noted. There are stable opacities in the lung parenchyma . IMPRESSION: No significant interval change. POS: [facility]
[2017-10-15] MEDS: Famotidine/PF 20 mg/2ml Vial SLOW IVP SCH (07:57)
[2017-10-15] MEDS: Saccharomyces boulardii 250 MG CAP PO SCH (07:57)
--- NOTE | 2017-10-15 09:45 | PRG ---
DATE OF SERVICE: 10/15/2017 SUBJECTIVE: Ms. Kirkpatrick is a 62-year-old white female who was seen by the Renal Service for acute k idney injury secondary to a presumed ischemic ATN. Renal function has been worsening. Discussion ab out dialysis has been made. However, due to the multiple medical problems with this patient, recurre nt cancer, the family is hesitant to initiate to any dialysis. They will have a family meeting. I d o agree with her plans about the conservative management. They will also discuss it with her pulmono logist. The patient remains unimproved. OBJECTIVE: VITAL SIGNS: Blood pressure is 102/48, heart rate 66, respiratory rate 14, pulse ox 99%. GENERAL: Unresponsive, intubated on ventilator support. SKIN: Adequate turgor. HEENT: Pinkish conjunctivae, anicteric sclerae. NECK: No neck mass, no carotid bruits, no JVD. CHEST: No deformities. LUNGS: Decreased breath sounds. HEART: Normal sinus rhythm. No murmur, no gallops, no rubs. ABDOMEN: Globular, soft, nontender. EXTREMITIES: Trace edema. MEDICATIONS: Of 10/15/2017 reviewed. LABORATORY DATA: Of 10/15/2017, white count 8.7, hemoglobin 8.4. Sodium 140, potassium 5.2, chlorid e 95, carbon dioxide 24, BUN 154, creatinine 6.42, calcium 7, AST 17, ALT 80, albumin 3.6. ASSESSMENT AND PLAN: Acute kidney injury - secondary to a presumed ischemic acute tubular necrosis s econdary to a cardiac arrest with this patient. Please note her urine sodium done yesterday showed v alue of 77. We are still trying to optimize hemodynamics with this patient. She has received salt p oor albumin and continues to be in some fluid replacement. Renal function has worsened. Awaiting fo r final decision with the family whether to proceed dialysis or not. Overall, agree with supportive management.
--- NOTE | 2017-10-15 10:12 | PDOC.PN ---
- Subjective Encounter Start Date: 10/15/17 Encounter Start Time: 09:50 pt's intubated, on ventilator, renal function getting worse - Objective Resuscitation Status: Resuscitation Status FULL:Full Resuscitation MAR Reviewed: Yes Vital Signs & Weight: Vital Signs (12 hours) Temp Pulse Resp BP Pulse Ox 10/15/17 08:00 12 10/15/17 07:00 97.4 F L 10/15/17 06:43 65 98/45 L 10/15/17 06:00 12 10/15/17 04:00 97.8 F 12 10/15/17 02:29 69 15 96 10/15/17 02:00 12 10/15/17 00:00 97.7 F 14 10/14/17 22:20 71 10/14/17 22:19 71 12 92 L Weight Admit Weight 153 lb Weight 191 lb 2.252 oz Most Recent Monitor Data Heart Rate from ECG 65 NIBP 114/47 NIBP BP-Mean 80 Respiration from ECG 13 SpO2 98 I&O: 10/14/17 10/15/17 10/16/17 06:59 06:59 06:59 Intake Total 3700.6 4028.2 Output Total 814 305 0 Balance 2886.6 3723.2 0 Result Diagrams: 10/15/17 03:45 10/15/17 03:45 Radiology Reviewed by me: Yes (chest xray) EKG Reviewed by me: Yes (nsr) Phys Exam - Physical Examination Constitutional: NAD intubated, on vent HEENT: PERRLA, sclera anicteric Neck: no JVD, supple Respiratory: no wheezing, no rales, no rhonchi coarse sound on right side, chest tube+ Cardiovascular: RRR, no significant murmur, no rub Gastrointestinal: soft, no distention, positive bowel sounds rectal tube, faustin+, right groin central line Musculoskeletal: pulses present, edema present Lymphatic: no nodes Skin: no rash, normal turgor Dx/Plan (1) Atrial flutter with rapid ventricular response Code(s): I48.92 - UNSPECIFIED ATRIAL FLUTTER Status: Acute Comment: (2) Acidosis, metabolic, with respiratory acidosis Code(s): E87.4 - MIXED DISORDER OF ACID-BASE BALANCE Status: Acute (3) Acute kidney failure Status: Acute (4) Acute pneumothorax Code(s): J93.83 - OTHER PNEUMOTHORAX Status: Acute Comment: s/p chest tube placement (5) Acute respiratory failure with hypoxia Code(s): J96.01 - ACUTE RESPIRATORY FAILURE WITH HYPOXIA Status: Acute Comment: on ventilator (6) Demand ischemia of myocardium Code(s): I24.8 - OTHER FORMS OF ACUTE ISCHEMIC HEART DISEASE Status: Acute (7) Parapneumonic effusion Code(s): J18.9 - PNEUMONIA, UNSPECIFIED ORGANISM; J91.8 - PLEURAL EFFUSION IN OTHER CONDITIONS CLASSIFIED ELSEWHERE Status: Acute Comment: (8) Right lower lobe pneumonia Code(s): J18.1 - LOBAR PNEUMONIA, UNSPECIFIED ORGANISM Status: Acute Qualifiers: Pneumonia type: due to other aerobic Gram-negative bacteria Qualified Code( s): J15.6 - Pneumonia due to other Gram-negative bacteria (9) Sepsis with multi-organ dysfunction Code(s): A41.9 - SEPSIS, UNSPECIFIED ORGANISM; R65.20 - SEVERE SEPSIS WITHOUT SEPTIC SHOCK Status: Acute (10) Septic shock Code(s): A41.9 - SEPSIS, UNSPECIFIED ORGANISM; R65.21 - SEVERE SEPSIS WITH SEPTIC SHOCK Status: Acute (11) Shock liver Code(s): K72.00 - ACUTE AND SUBACUTE HEPATIC FAILURE WITHOUT COMA Status: Acute (12) Anemia, normocytic normochromic Code(s): D64.9 - ANEMIA, UNSPECIFIED Status: Chronic (13) CKD (chronic kidney disease) stage 3, GFR 30-59 ml/min Status: Chronic (14) HTN (hypertension) Code(s): I10 - ESSENTIAL (PRIMARY) HYPERTENSION Status: Chronic Qualifiers: Hypertension type: essential hypertension Qualified Code(s): I10 - Essential (primary) hypertension Comment: (15) Paroxysmal atrial fibrillation Code(s): I48.0 - PAROXYSMAL ATRIAL FIBRILLATION Status: Chronic (16) SCC (squamous cell carcinoma of lung) Code(s): C34.90 - MALIGNANT NEOPLASM OF UNSP PART OF UNSP BRONCHUS OR LUNG Status: Chronic Qualifiers: Laterality: right Qualified Code(s): C34.91 - Malignant neoplasm of unspecified part of right bronchus or lung (17) Subclinical hypothyroidism Code(s): E03.9 - HYPOTHYROIDISM, UNSPECIFIED Status: Chronic Comment: (18) Atrial fibrillation with RVR Code(s): I48.91 - UNSPECIFIED ATRIAL FIBRILLATION Status: Resolved Comment: (19) Protein-calorie malnutrition, moderate Code(s): E44.0 - MODERATE PROTEIN-CALORIE MALNUTRITION Status: Acute (20) DIC (disseminated intravascular coagulation) Code(s): D65 - DISSEMINATED INTRAVASCULAR COAGULATION Status: Acute (21) Thrombocytopenia Code(s): D69.6 - THROMBOCYTOPENIA, UNSPECIFIED Status: Acute - Plan cont current plan of care, continue antibiotics, respiratory therapy * pt now will need HD if family decides * overall prognosis is quite poor * continue current vancomycin and zosyn as per renal dose * continue chest tube and vent as per pulmonary * nephrology following * medication reviewed as below * symptomatic treatment. Review of Systems - Review of Systems Other: unable to review as pt is intubated - Medications/Allergies Allergies/Adverse Reactions: Allergies Allergy/AdvReac Type Severity Reaction Status Date / Time sulfamethoxazole Allergy Verified 03/16/15 17:15 [From Bactrim] trimethoprim [From Bactrim] Allergy Verified 03/16/15 17:15 Medications: Current Medications Acetaminophen (Tylenol) 650 mg PO Q4H PRN PRN Reason: Headache/Fever or Pain Al Hydroxide/Mg Hydroxide (Maalox) 30 ml PO Q6H PRN PRN Reason: Heartburn or Indigestion Albumin Human (Albumin 25%) 25 gm IVPB Q6HR [facility] Stop: 10/16/17 06:01 Last Admin: 10/15/17 06:03 Dose: 25 gm Albuterol/Ipratropium (Duoneb) 3 ml NEB [id number] [facility] Last Admin: 10/15/17 10:08 Dose: 3 ml Artificial Tears (Tears Naturale) 0 drop EA EYE PRN PRN PRN Reason: Dry Eyes Famotidine (Pepcid) 20 mg SLOW IVP DAILY [facility] Last Admin: 10/15/17 07:57 Dose: 20 mg Guaifenesin (Robitussin Sf) 200 mg PO Q4H PRN PRN Reason: Cough Hydralazine HCl (Apresoline) 10 mg SLOW IVP Q4H PRN PRN Reason: Systolic BP > 180 Norepinephrine Bitartrate (Levophed) 250 mls @ 0 mls/hr IVPB PRN PRN; Protocol ; Titrate PRN Reason: To maintain MAP > 65 Last Admin: 10/10/17 09:44 Dose: 250 mls Fentanyl (Fentanyl Cadd) 250 mls @ 0 mls/hr IVPB INF [facility]; Titrate PRN Reason: Protocol Stop: 11/07/17 13:21 Last Admin: 10/13/17 10:15 Dose: 250 mls Fentanyl Citrate (Fentanyl Bolus) 250 mls @ 0 mls/hr IVPB PRN PRN; As Directed PRN Reason: Breakthrough pain Stop: 11/07/17 13:21 Piperacillin Sod/Tazobactam (Sod 2.25 gm/ Sodium Chloride) 100 mls @ 200 mls/ hr IVPB 0400,1000,1600,2200 [facility] Last Admin: 10/15/17 10:03 Dose: 100 mls Diltiazem HCl 125 mg/Miscellaneous Medication 1 each/ Sodium Chloride 125 mls @ 5 mls/hr IVPB INF [facility]; As Directed PRN Reason: Protocol Last Admin: 10/14/17 20:16 Dose: 125 mls Dextrose/Sodium Chloride (D5 1/2 Ns) 1,000 mls @ 50 mls/hr IV .Q20H [facility] Last Admin: 10/15/17 04:22 Dose: 1,000 mls Cefepime HCl 0.5 gm/ Sterile (Water) 10 mls @ 0 mls/hr IVPB 1100,2300 [facility] Last Admin: 10/14/17 23:09 Dose: 10 mls Loperamide HCl (Imodium) 2 mg PO PRN PRN PRN Reason: Diarrhea/Loose Stools Loratadine (Claritin) 10 mg PO DAILYPRN PRN PRN Reason: Sinus Symptoms Magnesium Hydroxide (Milk Of Magnesium) 30 ml PO DAILYPRN PRN PRN Reason: Constipation Methylprednisolone Sodium Succinate (Solu-Medrol) 40 mg IVP DAILY [facility] Last Admin: 10/15/17 07:57 Dose: 40 mg Mineral Oil/White Petrolatum (Eucerin Cream) 0 gm TOP BIDPRN PRN PRN Reason: Dry Skin Ondansetron HCl (Zofran Odt) 4 mg PO Q6H PRN PRN Reason: Nausea/Vomiting Ondansetron HCl (Zofran) 4 mg IVP Q6H PRN PRN Reason: Nausea/Vomiting Phenol (Chloraseptic [place] 180 Ml Bot) 0 ml PO PRN PRN PRN Reason: Sore Throat Propofol (Diprivan) 1,000 mg IV INF PRN; Protocol PRN Reason: TO ACHIEVE HAMILTON SCORE 2-3 Stop: 11/07/17 13:21 Last Admin: 10/14/17 12:02 Dose: 1,000 mg Saccharomyces Boulardii (Florastor) 250 mg PO DAILY [facility] Last Admin: 10/15/17 07:57 Dose: 250 mg Senna (Senokot) 2 tab PO HSPRN PRN PRN Reason: Constipation Sodium Chloride ([place] Nasal [place] 0.65%) 0 ml EA NARE QIDPRN PRN PRN Reason: Nasal Congestion Sodium Chloride (Flush - Normal Saline) 10 ml IVF PRN PRN PRN Reason: Saline Flush
[2017-10-15] MEDS: STERILE WATER IVPB SCH (13:48)
[2017-10-15] MEDS: CEFEPIME IVPB SCH (13:48)
--- NOTE | 2017-10-15 17:47 | PRG ---
DATE OF SERVICE: 10/15/2017 SUBJECTIVE: Jeniffer Kirkpatrick remains mechanically ventilated with a large air leak. OBJECTIVE: VITAL SIGNS: Heart rate 60, blood pressure 101/43, respiratory rate is in the teens. LUNGS: Clear. HEART: Regular rhythm. ABDOMEN: Soft. LABORATORY DATA: White count 8.7, hemoglobin 8.4, platelets 85,000. Sodium 140, potassium 5.2, chloride 95, bicarbonate 24, BUN 154, creatinine 6.42. PH yesterday 7.29, CO2 50, pO2 65. Intake and output was positive 3723 with only 305 mL of urine. IMPRESSION: 1. Oliguric renal failure after pneumonia, predominantly postobstructive with right lower lobe necro sis clinically. 2. Recurrent non-small cell lung cancer (squamous cell). 3. Persistent air leak. 4. Volume overload. This part of resuscitation trying to keep out of renal failure. PLAN: Continue supportive care. I met with family for approximately 20 minutes today. They want he r to be a DNR. They are considering withdrawal of care. Critical care time was 30 minutes.
[2017-10-15] MEDS: Fentanyl 20 MCG/ML 250 ML IVPB SCH (21:12)
[2017-10-15] MEDS: Diltiazem HCl 125 MG, Admixture Fee 1 EACH in Sodium Chloride 0.9% 100 ML IVPB SCH (22:07)
[2017-10-15] MEDS: CEFEPIME SLOW IVP SCH (22:08)
[2017-10-15] MEDS: STERILE WATER SLOW IVP SCH (22:08)
[2017-10-16 04:13] LABS: ALT (SGPT) 61 U/L (8-55); AST (SGOT) 17 U/L (5-34); Alkaline Phosphatase 85 U/L (40-150); Anion Gap 28 mmol/L (10-20); Bilirubin, Total 1.6 mg/dL (0.2-1.2); Calc. Creatinine Clearance 11 mL/min (70-130); Calcium 7.1 mg/dL (7.8-10.44); Carbon Dioxide 22 mmol/L (23-31); Chloride 94 mmol/L (98-107); Estimated GFR-MDRD 6; Globulin 2.3 g/dL (2.4-3.5); Protein, Total 5.6 g/dL (6.0-8.3)
[2017-10-16 04:19] LABS: Band 1 % (5-11); Hematocrit 27.3 % (36.0-47.0); Mean Platelet Volume 9.9 fL (7.4-10.4); Metamyelocyte 3 % (0-0); Neutrophil 85 % (42-75); Polychromasia SLIGHT = 2-3 cells (100X) (0-2/hpf); Reactive Lymphocytes 1 % (0-10); Red Blood Cell (RBC) Count 3.08 mill/uL (4.20-5.40); White Blood Cell (WBC) Count 8.8 thou/uL (4.8-10.8)
[2017-10-16 04:26] LABS: BUN (Urea Nitrogen) 166 mg/dL (9.8-20.1)
[2017-10-16] MEDS: Dextrose 5 %-0.45 % NaCl 1,000 ML IV SCH ×2 (04:59→05:04)
[2017-10-16] MEDS: Piperacillin/Tazobactam 2.25 GM in Sodium Chloride 0.9% 100 ML IVPB SCH ×2 (05:00→09:30)
[2017-10-16 07:40] VITALS: BP 89/32
--- NOTE | 2017-10-16 08:54 | RAD ---
1 VIEW CHEST: Date: 10/16/17 HISTORY: Respiratory distress. Ventilated patient. COMPARISON: 10/15/17. FINDINGS: Portable semiupright chest radiograph demonstrates endotracheal tube, nasogastric tube, and right-bang ed chest tube. The degree of opacification right hemithorax has increased. Small right lung base pneu mothorax cannot be excluded. There is stable opacification of the left lung. Subcutaneous emphysema i n left chest is again demonstrated. Left-sided pneumothorax is not appreciated. IMPRESSION: 1. Worsening opacification right hemithorax. 2. Small right-sided pneumothorax is suspected. 3. Persistent opacification left hemithorax. 4. Redemonstration of subcutaneous emphysema in left chest soft tissue. POS: PPP
[2017-10-16] MEDS: Saccharomyces boulardii 250 MG CAP PO SCH (09:30)
[2017-10-16] MEDS: Famotidine/PF 20 mg/2ml Vial SLOW IVP SCH (09:30)
[2017-10-16] MEDS: CEFEPIME SLOW IVP SCH (11:29)
[2017-10-16] MEDS: STERILE WATER SLOW IVP SCH (11:29)
--- NOTE | 2017-10-16 12:06 | PRG ---
DATE OF SERVICE: 10/16/2017 SERVICE: Renal Medicine. SUBJECTIVE: Ms. Kirkpatrick is a 62-year-old female who was seen by the Renal Service for her acute kidney injury secondary to presumed acute tubular necrosis. Renal function continues to worsen. A long discussion has been made with her daughter and her sister. According to the family, this patient does not wish to pursue dialysis as an instruction to her daughter . However, there is some family interaction regarding overall care whether that the patient can proceed with extubation. For the moment, we will continue the supportive care. OBJECTIVE: VITAL SIGNS: Blood pressure 89/32, heart rate 64, respiratory rate 13, pulse ox 94%. GENERAL: The patient is unresponsive, intubated on ventilator support. HEENT: She has pinkish conjunctivae, anicteric sclerae. NECK: No neck mass, no carotid bruits, no JVD. CHEST: No deformities. LUNGS: Decreased breath sounds. HEART: Normal sinus rhythm. No murmur, no gallops, no rubs. ABDOMEN: Globular, soft, nontender, no masses. EXTREMITIES: No edema, no deformities. MEDICATIONS: Of 10/16/2017 was reviewed. LABORATORY DATA: Of 10/16/2017, white count 8.8, hemoglobin 8.6. Sodium 138, potassium 5.7, chloride 94, carbon dioxide 22, BUN 166, creatinine 6.83, glucose 159, calcium 7.1, AST 17, ALT 61, albumin 3.3. ASSESSMENT AND PLAN: 1. Acute kidney injury. This is most likely secondary to ischemic acute tubular necrosis. Continue supportive care. This patient is not a dialysis candidate and at the same time, the family is not wanting to proceed with the dialysis at the present time. Continue supportive care. 2. Status post acute respiratory failure, currently intubated on ventilator support. 3. Recurrent pulmonary cancer - supportive care. MTDD
--- NOTE | 2017-10-16 12:10 | PDOC.PN ---
- Subjective Encounter Start Date: 10/16/17 Encounter Start Time: 09:40 Patient seen and examined. no improvement in condtion, now pt is DNR, family does not want dialysis.. No overnight events - Objective Resuscitation Status: Resuscitation Status DNR:Do Not Resuscitate MAR Reviewed: Yes Vital Signs & Weight: Vital Signs (12 hours) Temp Pulse Resp BP Pulse Ox 10/16/17 11:00 97.4 F L 10/16/17 10:00 15 10/16/17 08:00 97.4 F L 69 14 98 10/16/17 07:38 64 89/32 L 10/16/17 07:37 64 13 94 L 10/16/17 07:00 97.4 F L 10/16/17 06:00 12 10/16/17 04:00 12 10/16/17 03:35 60 10/16/17 02:00 12 Weight Admit Weight 153 lb Weight 197 lb 8.547 oz Most Recent Monitor Data Heart Rate from ECG 50 NIBP 67/44 NIBP BP-Mean 50 Respiration from ECG 19 SpO2 94 I&O: 10/15/17 10/16/17 10/17/17 06:59 06:59 06:59 Intake Total 4028.2 1794.3 100 Output Total 305 10 0 Balance 3723.2 1784.3 100 Result Diagrams: 10/16/17 Unknown 10/16/17 Unknown Additional Labs: Accuchecks 10/15/17 16:32 POC Glucose 146 H EKG Reviewed by me: Yes (tachycardia) Dx/Plan (1) Atrial flutter with rapid ventricular response Code(s): I48.92 - UNSPECIFIED ATRIAL FLUTTER Status: Acute Comment: (2) Acidosis, metabolic, with respiratory acidosis Code(s): E87.4 - MIXED DISORDER OF ACID-BASE BALANCE Status: Acute (3) Acute kidney failure Status: Acute (4) Acute pneumothorax Code(s): J93.83 - OTHER PNEUMOTHORAX Status: Acute Comment: s/p chest tube placement (5) Acute respiratory failure with hypoxia Code(s): J96.01 - ACUTE RESPIRATORY FAILURE WITH HYPOXIA Status: Acute Comment: on ventilator (6) Demand ischemia of myocardium Code(s): I24.8 - OTHER FORMS OF ACUTE ISCHEMIC HEART DISEASE Status: Acute (7) Parapneumonic effusion Code(s): J18.9 - PNEUMONIA, UNSPECIFIED ORGANISM; J91.8 - PLEURAL EFFUSION IN OTHER CONDITIONS CLASSIFIED ELSEWHERE Status: Acute Comment: (8) Right lower lobe pneumonia Code(s): J18.1 - LOBAR PNEUMONIA, UNSPECIFIED ORGANISM Status: Acute Qualifiers: Pneumonia type: due to other aerobic Gram-negative bacteria Qualified Code( s): J15.6 - Pneumonia due to other Gram-negative bacteria (9) Sepsis with multi-organ dysfunction Code(s): A41.9 - SEPSIS, UNSPECIFIED ORGANISM; R65.20 - SEVERE SEPSIS WITHOUT SEPTIC SHOCK Status: Acute (10) Septic shock Code(s): A41.9 - SEPSIS, UNSPECIFIED ORGANISM; R65.21 - SEVERE SEPSIS WITH SEPTIC SHOCK Status: Acute (11) Shock liver Code(s): K72.00 - ACUTE AND SUBACUTE HEPATIC FAILURE WITHOUT COMA Status: Acute (12) Anemia, normocytic normochromic Code(s): D64.9 - ANEMIA, UNSPECIFIED Status: Chronic (13) CKD (chronic kidney disease) stage 3, GFR 30-59 ml/min Status: Chronic (14) HTN (hypertension) Code(s): I10 - ESSENTIAL (PRIMARY) HYPERTENSION Status: Chronic Qualifiers: Hypertension type: essential hypertension Qualified Code(s): I10 - Essential (primary) hypertension Comment: (15) Paroxysmal atrial fibrillation Code(s): I48.0 - PAROXYSMAL ATRIAL FIBRILLATION Status: Chronic (16) SCC (squamous cell carcinoma of lung) Code(s): C34.90 - MALIGNANT NEOPLASM OF UNSP PART OF UNSP BRONCHUS OR LUNG Status: Chronic Qualifiers: Laterality: right Qualified Code(s): C34.91 - Malignant neoplasm of unspecified part of right bronchus or lung (17) Subclinical hypothyroidism Code(s): E03.9 - HYPOTHYROIDISM, UNSPECIFIED Status: Chronic Comment: (18) Atrial fibrillation with RVR Code(s): I48.91 - UNSPECIFIED ATRIAL FIBRILLATION Status: Resolved Comment: (19) Protein-calorie malnutrition, moderate Code(s): E44.0 - MODERATE PROTEIN-CALORIE MALNUTRITION Status: Acute - Plan cont current plan of care, continue antibiotics * pt has multiorgan failure * prognosis is very poor * family considering no dialysis and possible withdrawal of care later today. * medication reviewed as below * symptomatic treatment Review of Systems - Review of Systems Other: unable to review as pt is intubated - Medications/Allergies Allergies/Adverse Reactions: Allergies Allergy/AdvReac Type Severity Reaction Status Date / Time sulfamethoxazole Allergy Verified 03/16/15 17:15 [From Bactrim] trimethoprim [From Bactrim] Allergy Verified 03/16/15 17:15 Medications: Current Medications Acetaminophen (Tylenol) 650 mg PO Q4H PRN PRN Reason: Headache/Fever or Pain Al Hydroxide/Mg Hydroxide (Maalox) 30 ml PO Q6H PRN PRN Reason: Heartburn or Indigestion Albuterol/Ipratropium (Duoneb) 3 ml NEB [id number] [facility] Last Admin: 10/16/17 07:37 Dose: 3 ml Artificial Tears (Tears Naturale) 0 drop EA EYE PRN PRN PRN Reason: Dry Eyes Famotidine (Pepcid) 20 mg SLOW IVP DAILY [facility] Last Admin: 10/16/17 09:30 Dose: 20 mg Guaifenesin (Robitussin Sf) 200 mg PO Q4H PRN PRN Reason: Cough Hydralazine HCl (Apresoline) 10 mg SLOW IVP Q4H PRN PRN Reason: Systolic BP > 180 Norepinephrine Bitartrate (Levophed) 250 mls @ 0 mls/hr IVPB PRN PRN; Protocol ; Titrate PRN Reason: To maintain MAP > 65 Last Admin: 10/10/17 09:44 Dose: 250 mls Fentanyl (Fentanyl Cadd) 250 mls @ 0 mls/hr IVPB INF [facility]; Titrate PRN Reason: Protocol Stop: 11/07/17 13:21 Last Admin: 10/15/17 21:12 Dose: 250 mls Fentanyl Citrate (Fentanyl Bolus) 250 mls @ 0 mls/hr IVPB PRN PRN; As Directed PRN Reason: Breakthrough pain Stop: 11/07/17 13:21 Piperacillin Sod/Tazobactam (Sod 2.25 gm/ Sodium Chloride) 100 mls @ 200 mls/ hr IVPB 0400,1000,1600,2200 [facility] Last Admin: 10/16/17 09:30 Dose: 100 mls Diltiazem HCl 125 mg/Miscellaneous Medication 1 each/ Sodium Chloride 125 mls @ 5 mls/hr IVPB INF [facility]; As Directed PRN Reason: Protocol Last Admin: 10/15/17 22:07 Dose: 125 mls Dextrose/Sodium Chloride (D5 1/2 Ns) 1,000 mls @ 50 mls/hr IV .Q20H REPLACED BY [facility] Last Admin: 10/16/17 05:04 Dose: 1,000 mls Cefepime HCl 0.5 gm/ Sterile (Water) 5 mls @ 60 mls/hr SLOW IVP 1100,2300 REPLACED BY [facility] Last Admin: 10/16/17 11:29 Dose: 5 mls Loperamide HCl (Imodium) 2 mg PO PRN PRN PRN Reason: Diarrhea/Loose Stools Loratadine (Claritin) 10 mg PO DAILYPRN PRN PRN Reason: Sinus Symptoms Magnesium Hydroxide (Milk Of Magnesium) 30 ml PO DAILYPRN PRN PRN Reason: Constipation Methylprednisolone Sodium Succinate (Solu-Medrol) 40 mg IVP DAILY [facility]PL[facility] Last Admin: 10/16/17 09:30 Dose: 40 mg Mineral Oil/White Petrolatum (Eucerin Cream) 0 gm TOP BIDPRN PRN PRN Reason: Dry Skin Ondansetron HCl (Zofran Odt) 4 mg PO Q6H PRN PRN Reason: Nausea/Vomiting Ondansetron HCl (Zofran) 4 mg IVP Q6H PRN PRN Reason: Nausea/Vomiting Phenol (Chloraseptic [place] 180 Ml Bot) 0 ml PO PRN PRN PRN Reason: Sore Throat Propofol (Diprivan) 1,000 mg IV INF PRN; Protocol PRN Reason: TO ACHIEVE HAMILTON SCORE 2-3 Stop: 11/07/17 13:21 Last Admin: 10/14/17 12:02 Dose: 1,000 mg Saccharomyces Boulardii (Florastor) 250 mg PO DAILY [facility]PLACED BY [facility] Last Admin: 10/16/17 09:30 Dose: 250 mg Senna (Senokot) 2 tab PO HSPRN PRN PRN Reason: Constipation Sodium Chloride ([place] Nasal [place] 0.65%) 0 ml EA NARE QIDPRN PRN PRN Reason: Nasal Congestion Sodium Chloride (Flush - Normal Saline) 10 ml IVF PRN PRN PRN Reason: Saline Flush Last Admin: 10/16/17 09:30 Dose: 10 ml
--- NOTE | 2017-10-16 14:16 | DS ---
PRIMARY CARE PHYSICIAN: [facility] call admission. DATE OF ADMISSION: 10/08/2017 DATE OF : 10/16/2017 TIME OF : 13:13 p.m. PRIMARY CAUSE OF : 1. Septic shock. 2. Multiorgan failure. 3. Right lower lobe pneumonia with effusion. 4. Disseminated intravascular coagulation. 5. Known ST elevation type 2. 6. Atrial flutter with rapid ventricular response. 7. Acute respiratory failure with hypoxia. 8. Acute pneumothorax. 9. Acute kidney failure with acute tubular necrosis. 10. Respiratory and metabolic acidosis. CONTRIBUTING DIAGNOSIS: Squamous cell carcinoma of lung. PRIMARY PROCEDURES/OPERATIONS: Endotracheal intubation, mechanical ventilatory support, central line placement, chest tube placement, bronchoscopy. RADIOLOGICAL INVESTIGATION: Several chest x-rays. SIGNIFICANT LABORATORY DATA: WBC 8.8, hemoglobin 8.6, platelets 90, INR 1.5 and creatinine 6.83. SHORT HOSPITAL SUMMARY: A 62-year-old female who was admitted by mo on 10/08/2017. This patient was having septic shock on admission. She was having sepsis with acute organ dysfunction. She was havi ng acute hypoxic respiratory failure. Initially, she was having right lower lobe pneumonia with effu abdi. Her sputum was very foul smelling and we suspected anaerobic infection. Patient was also havi ng AFIB with RVR. Initially, we tried with BiPAP in the Emergency Room, but patient's condition deteriorated. She was coded and she required intubation. She subsequently required ICU admission. The patient was admitted to CCU and ventilator managed by Pulmonary group. Patient had bronchoscopy and her bronchoalveolar biopsy and lavage positive for squamous cell carcinoma. Patient was given br oad spectrum antibiotic therapy with vancomycin and Zosyn. This patient was also hypotensive, required several vasopressor support with Levophed and vasopressin . She developed acute kidney failure and acute tubular necrosis and she was approaching to ESRD. Fa kate member decided not to go for dialysis. This patient's prognosis was extremely poor. She was developing multiorgan failure. She also had sh ock liver and that was improving, but renal function was not getting better. Her pneumonia was also not getting better. She had pneumothorax required chest tube placement. This patient's family member made her DNR and they decided to go withdrawal of care. Patient had sev ere acidosis. She required bicarbonate drip, maximum and optimum medical treatment did not survived her. The patient was seen and examined earlier today. Total time spent on the day more than 30 minutes.
--- NOTE | 2017-10-16 14:31 | PRG ---
DATE OF SERVICE: 10/16/2017 SUBJECTIVE: Ms. Kirkpatrick become hemodynamically unstable. Heart rate is down to 40s, pressures in t he 60s. Respiratory rate is still per mechanical ventilation. She is still sedated for ventilation. Family has been informed that her demise is imminent with an idea decided to withdraw support or no t. They have not made the decision to withdraw support. OBJECTIVE: LUNGS: Remarkable for coarse equal breath sounds. HEART: Regular rhythm. ABDOMEN: Soft. Intake and output is positive 1784. LABORATORY DATA: White count 8.7, hemoglobin 8.4, platelets 85,000. BUN is up to 166, creatinine 6. 8, potassium is up to 5.7, pH 7.29, CO2 of 52, PO2 of 65. IMPRESSION: 1. Respiratory failure. 2. Acute renal failure top of chronic kidney disease. 3. Recurrent squamous cell carcinoma of the lung. 4. Metabolic acidosis secondary to renal failure. 5. Hyperkalemia, secondary to renal failure. 6. Deconditioning. 7. Pneumothorax with chest tube in place with persistent air leak secondary to CPR and probably rib fracture. 8. Volume overload. PLAN: Continue comfort measures. Family decided to extubate her, this will be done, but I do not be lieve that they will reach an agreement on terminating in an aggressive care. She is a do not resusc itate patient. Critical care time was 30 minutes.
--- NOTE | 2017-10-20 15:52 | EKG ---
Test Reason : AFIB...SR Blood Pressure : / mmHG Vent. Rate : 085 BPM Atrial Rate : 085 BPM P-R Int : 120 ms QRS Dur : 078 ms QT Int : 368 ms P-R-T Axes : 073 040 073 degrees QTc Int : 437 ms Normal sinus rhythm Nonspecific T wave abnormality Abnormal ECG Confirmed by ANT BARRIOS, RUPERTO ([id number]), slot editor NNAMDI SANTIAGO ([id number]) on 10/20/2017 3:52:15 PM Referred By: DR CAIN Confirmed By:RUPERTO CAIN MD
--- NOTE | 2017-10-20 16:48 | EKG ---
Test Reason : DIFF BREATHING Blood Pressure : / mmHG Vent. Rate : 162 BPM Atrial Rate : 133 BPM P-R Int : 000 ms QRS Dur : 072 ms QT Int : 244 ms P-R-T Axes : 000 042 249 degrees QTc Int : 400 ms Atrial fibrillation with rapid ventricular response Abnormal ECG Confirmed by RACHEAL BARRIOS, PAVEL ([id number]), marketing editor NNAMDI SANTIAGO ([id number]) on 10/20/2017 4:47:12 PM Referred By: Confirmed By:PAVEL SPRINGER MD
== END 2017-10-16 13:13 | disposition expired | DRG 870 ==
LOC: ERS 05:39 → ERHOLD 06:40 → CCU 15:29
PROVIDERS: ADMIT Internal Medicine; ATTEND Internal Medicine
PROC: 0BH17EZ Insertion of Endotracheal Airway into Trachea, Via Natural or Artificial Opening (ICD-10-PCS; principal; 2017-10-08)
PROC: 5A1955Z Respiratory Ventilation, Greater than 96 Consecutive Hours (ICD-10-PCS; 2017-10-08)
PROC: 5A12012 Performance of Cardiac Output, Single, Manual (ICD-10-PCS; 2017-10-08)
PROC: 06HY33Z Insertion of Infusion Device into Lower Vein, Percutaneous Approach (ICD-10-PCS; 2017-10-08)
PROC: 03HY33Z Insertion of Infusion Device into Upper Artery, Percutaneous Approach (ICD-10-PCS; 2017-10-08)
PROC: 0W9900Z Drainage of Right Pleural Cavity with Drainage Device, Open Approach (ICD-10-PCS; 2017-10-08)
PROC: 5A2204Z Restoration of Cardiac Rhythm, Single (ICD-10-PCS; 2017-10-09)
PROC: 0BD38ZX Extraction of Right Main Bronchus, Via Natural or Artificial Opening Endoscopic, Diagnostic (ICD-10-PCS; 2017-10-09)
PROC: 30233N1 Transfusion of Nonautologous Red Blood Cells into Peripheral Vein, Percutaneous Approach (ICD-10-PCS; 2017-10-10)
DX: A41.9 Sepsis, unspecified organism (principal); D65 Disseminated intravascular coagulation [defibrination syndrome]; K72.00 Acute and subacute hepatic failure without coma; J96.21 Acute and chronic respiratory failure with hypoxia; I46.9 Cardiac arrest, cause unspecified; J91.8 Pleural effusion in other conditions classified elsewhere; N17.0 Acute kidney failure with tubular necrosis; E22.2 Syndrome of inappropriate secretion of antidiuretic hormone; J15.6 Pneumonia due to other Gram-negative bacteria; R65.21 Severe sepsis with septic shock; E87.2 Acidosis; C34.91 Malignant neoplasm of unspecified part of right bronchus or lung; J44.0 Chronic obstructive pulmonary disease with (acute) lower respiratory infection; J44.1 Chronic obstructive pulmonary disease with (acute) exacerbation; I48.92 Unspecified atrial flutter; J93.83 Other pneumothorax; I24.8 Other forms of acute ischemic heart disease; E44.0 Moderate protein-calorie malnutrition; J98.11 Atelectasis; J93.82 Other air leak; D69.6 Thrombocytopenia, unspecified; E86.0 Dehydration; Z66 Do not resuscitate; Z51.5 Encounter for palliative care; F41.9 Anxiety disorder, unspecified; D64.9 Anemia, unspecified; I12.9 Hypertensive chronic kidney disease with stage 1 through stage 4 chronic kidney disease, or unspecified chronic kidney disease; N18.3 Chronic kidney disease, stage 3 (moderate); I48.0 Paroxysmal atrial fibrillation; E02 Subclinical iodine-deficiency hypothyroidism; Z68.33 Body mass index [BMI] 33.0-33.9, adult; Z87.891 Personal history of nicotine dependence; R59.1 Generalized enlarged lymph nodes; E87.70 Fluid overload, unspecified
CPT/HCPCS: 31500; 36415; 36416; 36430; 36556; 51702; 71010; 76770; 80053; 80162; 80202; 81001; 82533; 82553; 82570; 82805; 83605; 83735; 83880; 83930; 84300; 84484; 85007; 85025; 85027; 85049; 85300; 85362; 85379; 85384; 85610; 85730; 86850; 86900; 86901; 87040; 87070; 87205; 87324; 87449; 88112; 88305; 88313; 88341; 88342; 92950; 93005; 94002; 94003; 94640; 94660; 96361; 96365; 96366; 96367; 96368; 96375; 96376; A4216; J0171; J0282; J0692; J1160; J1644; J1940; J1956; J2001; J2250; J2543; J2704; J2920; J3010; J3370; J3480; J7050; J7070; J7620; P9016; P9045; P9047; S0028